=== PATIENT | female | born 1960 | race Caucasian/White ===

== ENCOUNTER → 2023-09-10 10:52 | Outpatient (CLI) | payer MEDICARE, SELFPAY ==
[2023-09-10 11:38] LABS: Basophils # 0.1 K/mm3 (0-0.2); Basophils % 0.6 % (0.1-2.0); Eosinophils # 0.1 K/mm3 (0.0-0.4); Eosinophils % 0.9 % (0.1-12.0); Hematocrit 47.5 % (37.0-47.0); Lymphocytes # 2.8 K/mm3 (0.7-4.5); Lymphocytes % 23.4 % (10-50); Mean Corpuscular HGB Conc 33.7 g/dL (31.8-35.4); Mean Corpuscular Hemoglobin 31.9 pg (27.0-31.2); Mean Corpuscular Volume 94.7 fl (81-99); Mean Platelet Volume 7.4 fl (7.4-10.4); Monocytes # 0.6 K/mm3 (0.1-1.0); Monocytes % 4.7 % (1.7-9.3); Neutrophils # 8.5 K/mm3 (1.8-7.8); Neutrophils % 70.4 % (37.0-80.0); Platelet Count 356 K/mm3 (142-424); Red Blood Count 5.01 M/mm3 (4.20-5.40); Red Cell Distribution Width 14.5 % (11.5-17.5)
[2023-09-10 12:19] LABS: Alanine Aminotransferase 25 U/L (12-78); Albumin Level 4.8 g/dl (3.5-5.0); Alkaline Phosphatase 80 U/L (38-126); Anion Gap 14.9 mEq/L (5-15); Aspartate Amino Transferase 39 U/L (14-36); Bilirubin,Direct 0.2 mg/dl (0.0-0.4); Bilirubin,Indirect 0.6 mg/dL (0.0-0.9); Bilirubin,Total 0.8 mg/dl (0.2-1.3); Bilirubin,Unconjugated 0.6 mg/dL (0.0-1.1); Blood Urea Nitrogen 15 mg/dl (7-17); Calcium 9.6 mg/dl (8.4-10.2); Carbon Dioxide 24 mmol/L (22.0-30.0); Chloride 99 mmol/L (98-107); Chol/HDL Ratio 2.5 (1-3.5); Cholesterol 139 mg/dl (140-200); Estimated Glomerular Filt Rate 72 ml/min (>60); GFR (African American) 87 ML/MIN (>60); Glucose 82 mg/dl (74-100); HDL Cholesterol 56 mg/dl (40-60); Magnesium 2.1 mg/dl (1.6-2.3); Potassium 3.9 mmoL/L (3.5-5.1); Sodium 134 mmol/L (136-145); Total Protein,Serum 7.8 g/dl (6.3-8.2); Triglycerides 146 mg/dl (30-150); VLDL Cholesterol 29 mg/dL (0-40)
[2023-09-10 12:30] LABS: Direct LDL Cholesterol 64.27 mg/dL (100-129)
[2023-09-10 12:34] LABS: Free T4 (Free Thyroxine) 1.51 ng/dl (0.78-2.19)
[2023-09-10 12:49] LABS: Thyroid Stimulating Hormone 2.11 uIU/mL (0.465-4.68)
== END ==
PROVIDERS: PCP Nurse Practitioner; Visit Provider Nurse Practitioner
DX: I20.0 Unstable angina (principal); R00.0 Tachycardia, unspecified; R06.00 Dyspnea, unspecified; R07.9 Chest pain, unspecified; R11.0 Nausea; R53.83 Other fatigue; R60.0 Localized edema; R63.4 Abnormal weight loss; R94.31 Abnormal electrocardiogram [ECG] [EKG]; Z82.49 Family history of ischemic heart disease and other diseases of the circulatory system; Z68.1 Body mass index [BMI] 19.9 or less, adult; Z72.0 Tobacco use
CPT/HCPCS: 36415; 80048; 80061; 80076; 83735; 84439; 84443; 85025; 93270

== ENCOUNTER → 2023-09-26 10:51 | Outpatient (CLI) | payer MEDICARE, OTHER, SELFPAY | PROVIDERS: PCP Nurse Practitioner; Visit Provider Nurse Practitioner | DX: R07.9 Chest pain, unspecified (principal) ==

== ENCOUNTER 2024-10-08 15:51 | Emergency (ER) | payer MEDICARE, MEDICAID, SELFPAY ==
[2024-10-08 15:51] VITALS: BP 96/57; PULSE 112; RESP 22; O2SAT 86; BMI 13.2
--- NOTE | 2024-10-08 16:20 | ECG_ITS ---
APPROVED REPORT Exam: Resting ECG HR:108 bpm ECG Measurements Heart Rate 108 AXES [place] 118 P 77 QRSd 97 QRS -70 QT 274 T 81 QTc 338 Conclusion SINUS TACHYCARDIA WITH SHORT [place] INTERVAL POSSIBLE LEFT ATRIAL ENLARGEMENT [-0.1mV P-WAVE IN V1/V2] INDETERMINATE AXIS NONSPECIFIC T-WAVE ABNORMALITY Artifact. No acute STEMI Electronically signed by : MAHESH GASPAR, 10/09/2024 00:10:57
[2024-10-08 16:30] VITALS: BP 115/77; PULSE 109; RESP 28; O2SAT 90
[2024-10-08 16:32] LABS: Coronavirus 19, PCR Not Detected (NotDetected); Influenza B, PCR Not Detected (NotDetected)
--- NOTE | 2024-10-08 16:34 | CT_ITS ---
PROCEDURE INFORMATION: Exam: CT Head Without Contrast Exam date and time: 10/08/2024 5:57 PM Age: 64 years old Clinical indication: Injury or trauma; Fall; Blunt trauma (contusions or hematomas); Additional info: Frequent falls TECHNIQUE: Imaging protocol: Computed tomography of the head without contrast. Radiation optimization: All CT scans at this facility use at least one of these dose optimization techniques: automated exposure control; mA and/or kV adjustment per patient size (includes targeted exams where dose is matched to clinical indication); or iterative reconstruction. COMPARISON: No relevant prior studies available. FINDINGS: Brain: No acute intracranial hemorrhage, midline shift or mass effect. Diffuse brain parenchymal volume loss. Hypodensities within the cerebral white matter most consistent with chronic small-vessel ischemic changes. Cerebral ventricles: No ventriculomegaly. Paranasal sinuses: Visualized sinuses are unremarkable. No fluid levels. Mastoid air cells: Visualized mastoid air cells are well aerated. Bones: Unremarkable. No acute fracture. Soft tissues: Unremarkable. IMPRESSION: No acute intracranial findings.
--- NOTE | 2024-10-08 16:34 | CT_ITS ---
PROCEDURE INFORMATION: Exam: CT Cervical Spine Without Contrast Exam date and time: 10/08/2024 5:59 PM Age: 64 years old Clinical indication: Injury or trauma; Fall; Blunt trauma; Additional info: Frequent falls TECHNIQUE: Imaging protocol: Computed tomography of the cervical spine without contrast. Radiation optimization: All CT scans at this facility use at least one of these dose optimization techniques: automated exposure control; mA and/or kV adjustment per patient size (includes targeted exams where dose is matched to clinical indication); or iterative reconstruction. COMPARISON: CT HEAD/BRAIN WO CON 10/08/2024 5:57 PM FINDINGS: Bones: Cervical vertebrae normal in height. No acute fracture. Normal alignment. Maintained craniocervical junction. Multilevel degenerative changes. Varying degrees of neural foraminal narrowing. No severe spinal canal stenosis. Lungs: Biapical pleural-parenchymal scarring Vasculature: Carotid artery calcifications. Soft tissues: Unremarkable. IMPRESSION: No acute osseous findings.
--- NOTE | 2024-10-08 16:34 | CT_ITS ---
PROCEDURE INFORMATION: Exam: CTA Chest With Contrast Exam date and time: 10/08/2024 6:02 PM Age: 64 years old Clinical indication: Other: Resp failure, frequent falls TECHNIQUE: Imaging protocol: Computed tomographic angiography of the chest with contrast. Exam focused on the arteries. 3D rendering (Not supervised by radiologist): MIP and/or 3D reconstructed images were created by the technologist. Radiation optimization: All CT scans at this facility use at least one of these dose optimization techniques: automated exposure control; mA and/or kV adjustment per patient size (includes targeted exams where dose is matched to clinical indication); or iterative reconstruction. Contrast material: ISO 370; Contrast volume: 70 ml; Contrast route: INTRAVENOUS (IV); COMPARISON: CR XR CHEST 2V 11/23/2019 4:56 PM FINDINGS: Pulmonary arteries: No CT evidence for pulmonary embolism. Aorta: Unremarkable. No aortic aneurysm. No aortic dissection. Lungs: Moderate changes of centrilobular emphysema. Luminal opacification of segmental and subsegmental bronchi to the right lower lobe as well as the left lower lobe consistent with either secondary to inflammation infection/bronchitis or aspiration. In addition associated tiny tree-in-bud bronchiolitis changes within the dependent portion of the left lung base. Mild scarring within the peripheral aspect of the middle lobe. Pleural spaces: Unremarkable. No pneumothorax. No pleural effusion. Heart: Unremarkable. No cardiomegaly. No pericardial effusion. Lymph nodes: Reactive right hilar lymph node measures 11 mm. Bones/joints: Unremarkable. No acute fracture. Soft tissues: Chest wall subcutaneous tissues and musculature appear unremarkable. IMPRESSION: 1. Luminal opacification of segmental and subsegmental bronchi to the right lower lobe as well as the left lower lobe consistent with either secondary to inflammation infection/bronchitis or aspiration. In addition associated tiny tree-in-bud bronchiolitis changes within the dependent portion of the left lung base. 2. No CT evidence for pulmonary embolism. 3. Moderate changes of centrilobular emphysema. 4. Mild scarring within the peripheral aspect of the middle lobe. 5. Probable Reactive right hilar lymph node measures 11 mm. This can be evaluated upon enrollment in a low-dose CT lung cancer screening which is strongly recommended in this patient. COMMENTS: The presence of pulmonary emphysema on CT is an independent risk factor for lung cancer. In the absence of a history or active diagnosis of lung cancer, it is recommended that this patient with emphysema be evaluated for enrollment in a low dose CT lung cancer screening program.
[2024-10-08 16:35] LABS: Basophils % 0.1 % (0.1-2.0); Hematocrit 37.6 % (37.0-47.0); Hemoglobin 12.7 g/dL (12.2-16.2); Lymphocytes # 0.9 K/mm3 (0.7-4.5); Lymphocytes % 8.8 % (10-50); Mean Corpuscular HGB Conc 33.8 g/dL (31.8-35.4); Mean Corpuscular Hemoglobin 29.3 pg (27.0-31.2); Mean Corpuscular Volume 86.8 fl (81-99); Mean Platelet Volume 8.8 fl (7.4-10.4); Monocytes # 0.5 K/mm3 (0.1-1.0); Monocytes % 4.7 % (1.7-9.3); Neutrophils # 8.8 K/mm3 (1.8-7.8); Neutrophils % 85.9 % (37.0-80.0); Platelet Count 235 K/mm3 (142-424); Red Blood Count 4.33 M/mm3 (4.20-5.40); Red Cell Distribution Width 13.9 % (11.5-17.5); White Blood Count 10.2 K/mm3 (4.8-10.8)
[2024-10-08 16:41] LABS: Lactate Venous 2.6 mmol/L (0.4-2.0); VBG HCO3 22.3 mmol/L (23-30); VBG Oxygen Saturation 89.9 % (50-70); VBG PCO2 39.6 mmol/L (35-51); VBG PH 7.37 mmol/L (7.31-7.41); VBG PO2 59.5 mmol/L (28-40); VBG Total CO2 23.5 mmol/L (23-27)
[2024-10-08 16:45] LABS: MANUAL DIFFERENTIAL MANUAL DIFFERENTIAL (MANUAL DIFF)
[2024-10-08] MEDS: METHYLPREDNISOLONE SOD SUCC 125MG VIAL 125 MG IV (16:45)
[2024-10-08] MEDS: LACTATED RINGERS 1000ML 1,430 ML 715 ML IV (16:45)
[2024-10-08] MEDS: MAGNESIUM SULFATE IN WATER 2 GM/50 ML PIGGYBACK IV (16:46)
--- NOTE | 2024-10-08 16:52 | ED_ITS ---
Discharge Plan Disposition Patient Disposition: Left Against Medical Advice Condition: Fair Prescriptions Prescriptions: New amoxicillin-pot clavulanate 875-125 mg tablet 1 tab PO BID Qty: 20 0RF azithromycin 500 mg tablet 500 mg PO DAILY 5 Days Qty: 5 0RF prednisone 20 mg tablet 40 mg PO DAILY 5 Days Qty: 10 0RF No Action bupropion HCl 150 mg tablet extended release 24 hr PO ibuprofen 800 mg tablet 800 mg PO PRN megestrol 400 mg/10 mL (40 mg/mL) suspension 400 mg PO DAILY rosuvastatin 40 mg tablet 40 mg PO DAILY dicyclomine 20 mg tablet 20 mg PO ONCE ergocalciferol (vitamin D2) [Vitamin D2] 1,250 mcg (50,000 unit) capsule 1,250 mcg PO WEEKLY losartan 25 mg tablet 25 mg PO DAILY Qty: 30 3RF bisoprolol fumarate 5 mg tablet 5 mg PO DAILY Qty: 30 3RF Referrals Follow up/Referrals: Tiffani Mcfarland APRN [Primary Care Provider] - See instructions Activity Restrictions/Add. Instructions Additional Instructions/Restrictions: You were evaluated in the emergency department today. At this time, we do not feel that it is safe for you to go home. We feel you have sepsis secondary to pneumonia. Your oxygen saturation is also low, and your heart enzymes are also high. We recommended admission for these reasons in addition to your frequent falls. We are worried that if you go home, you will get worse which can lead to fall with worsened injuries, major heart attack, and even . Please come back to the emergency department right away if you change your mind and wish to be admitted. Since you are going home, I have prescribed you antibiotics and steroids to treat your infection and COPD exacerbation. Please follow-up outpatient with your primary care provider right away. Clinical Impressions Clinical Impression: COPD exacerbation, Sepsis due to pneumonia, Elevated troponin, Frequent falls, Acute hypoxemic respiratory failure, Lymph nodes enlarged Stand Alone Forms Stand Alone Forms: Work/School Release Instructions Patient Instructions: DI for Heart Attack, How to Prevent Falls, DI for Sepsis -- Adult, DI for Respiratory Failure Print Language Print Language: Japanese Discharge ED Provider: Ariadna Figueroa HPI General Chief Complaint: Shortness of Breath/Dyspnea Stated Complaint: unable to eat, cough, fell x2 Time Seen by Provider: 10/08/24 16:26 Mode of Arrival: Ambulatory Source of Information: Patient Limitations: No Limitations Description of Symptoms (Recalled from ER Triage Doc. by RN): pt presents to ED c/o increased SOA and weakness. pt states she has a history of COPD. pt denies any known fever. History of Present Illness HPI narrative: This patient is a 64-year-old female with a history of COPD not on home oxygen, hypertension, hyperlipidemia presenting to the emergency department for evaluation with concern for shortness of breath, general weakness, and frequent falls. She states she is been feeling bad for a few days. She notes that she is having a really hard time standing secondary to generalized weakness and feels like she cannot catch her breath. Her COPD is flared up worse than normal. No other specific concerns noted, such as pain. She denies hitting her head or losing consciousness with any of her falls. She denies any traumatic injuries. She does not use aspirin or blood thinners. Related Data Home Medications ?Medication ?Instructions ?Recorded ?Confirmed bupropion HCl 150 mg 24 hr tablet, mg PO 09/10/23 09/10/23 extended release dicyclomine 20 mg tablet 20 mg PO ONCE 09/10/23 09/10/23 ergocalciferol (vitamin D2) 1,250 1,250 mcg PO WEEKLY 09/10/23 09/10/23 mcg (50,000 unit) capsule (Vitamin D2) ibuprofen 800 mg tablet 800 mg PO PRN 09/10/23 09/10/23 megestrol 400 mg/10 mL (40 mg/mL) 400 mg PO DAILY 09/10/23 09/10/23 oral suspension rosuvastatin 40 mg tablet 40 mg PO DAILY 09/10/23 09/10/23 Previous Rx's ?Medication ?Instructions ?Recorded bisoprolol fumarate 5 mg tablet 5 mg PO DAILY #30 tabs 09/10/23 losartan 25 mg tablet 25 mg PO DAILY #30 tabs 09/10/23 amoxicillin 875 mg-potassium 1 tab PO BID #20 tabs 10/08/24 clavulanate 125 mg tablet azithromycin 500 mg tablet 500 mg PO DAILY 5 days #5 tabs 10/08/24 prednisone 20 mg tablet 40 mg (2 x 20 mg) PO DAILY 5 days 10/08/24 #10 tabs Allergies Allergy/AdvReac Type Severity Reaction Status Date / Time No Known Allergies Allergy Verified 09/10/23 10:00 [facility] Disclaimer: The information contained in this section may have been updated after the patient was seen, as this information can be updated by other users. Medical History Nausea Edema of both lower extremities Crescendo angina Family history of ischemic heart disease Tobacco use Tachycardia Abnormal electrocardiogram [ECG] [EKG] High cholesterol COPD (chronic obstructive pulmonary disease) Hypertension Surgical History Hx of hysterectomy Family History Grandmother Cancer Other Alcoholism Social History Smoking Status: Current every day smoker tobacco type: cigarettes packs per day: 1 alcohol intake: never current occupational status: other Travel in the last 8 weeks: None Have you lived/traveled outside [place] in past 30 days?: No Contact w/someone who lives/traveled outside US past 30 days?: No Exposure to someone with infectious disease in past 14 days?: No Do you have a fever (greater than 100.4 F or 38 C)?: No Have you tested positive for COVID-19: No Exposed to someone with COVID-19 in past 14 days?: No Do you have a sore throat?: No Do you have a cough?: Yes Do you have any weakness?: No Do you have any diarrhea?: No Are you experiencing any unusual bleeding?: No Do you have any muscle aches/pain?: No Do you have any abdominal pain?: No Are you experiencing loss of taste or smell?: No Other Medical History Have you received the Pneumonia Vaccine: No ROS Obtained: Yes All systems reviewed & no additional complaints except as documented Physical Exam General General appearance: alert, in distress and cachectic Comment: Thin, frail, in respiratory distress Head Head exam: atraumatic and normocephalic Eye Eye exam: Present normal appearance, PERRL and EOMI ENT ENT exam: Present mucous membranes dry and normal external ear exam Neck Neck exam: Present normal inspection, full ROM and trachea midline; Absent tenderness Chest Chest inspection: Present normal inspection and symmetric chest wall rise; Absent tenderness Respiratory Respiratory exam: Present respiratory distress, wheezes, accessory muscle use and prolonged expiratory phase; Absent stridor Cardiovascular Cardiovascular exam: Present normal rhythm and tachycardia Abdominal Exam Abdominal exam: Present soft; Absent distention, tenderness, guarding or rebound Extremities Exam Extremities exam: Present normal inspection, full ROM and normal capillary refill; Absent tenderness or edema Back Exam Back exam: Present normal inspection and full ROM; Absent tenderness Neurological Exam Neurological exam: Present alert, oriented X3 and CN II-XII intact; Absent normal gait (Unsteady gait) or motor sensory deficit Psychiatric Psychiatric exam: Present normal affect and normal mood Skin Skin exam: Present warm and dry HEART Score HEART Score HEART Score assessment performed?: Yes History (anamnesis): Slightly suspicious ECG: Normal Age: >65 years Risk factors: 3 or more risk factors Troponin: 1-3x normal limit HEART Score: 5 Critical Care Critical Care Time Critical Care Time: Yes Attestation: On 10/08/24, the high probability of a clinically significant, sudden or life threatening deterioration of the following system(s) required my full and direct attention, intervention and personal management. The time I documented below is in addition to time spent performing reported procedures but includes the following listed in this critical care notation. Total Time Total Critical Care Time: 40 Medical Decision Making Denny Inquiry Pt receiving controlled substance: No Vital Signs Vital Signs: 10/08/24 15:51 10/08/24 16:30 10/08/24 17:00 Temperature Temperature Source Oral Pulse Rate 109 H 98 H Pulse Rate [Right Radial] 112 H Respiratory Rate 22 28 H 26 H Blood Pressure 115/77 99/53 L Blood Pressure [Right Arm] 96/57 L Blood Pressure Mean 89 Blood Pressure Mean [Right Arm] 70 Blood Pressure Source [Right Arm] Automatic Cuff Blood Pressure Position [Right Arm] Sitting 02 Sat by Pulse Oximetry 86 L 90 L 89 L Oxygen Delivery Method Room Air 10/08/24 17:30 10/08/24 18:30 10/08/24 20:31 Temperature 97.8 F Temperature Source Pulse Rate 94 H 87 86 Pulse Rate [Right Radial] Respiratory Rate 25 H 20 19 Blood Pressure 101/55 L 115/65 104/65 L Blood Pressure [Right Arm] Blood Pressure Mean 61 77 Blood Pressure Mean [Right Arm] Blood Pressure Source [Right Arm] Blood Pressure Position [Right Arm] 02 Sat by Pulse Oximetry 96 97 Oxygen Delivery Method Nasal Cannula Lab Data Labs: Lab Results 10/08/24 16:15: WBC 10.2, RBC 4.33, Hgb 12.7, Hct 37.6, MCV 86.8, MCH 29.3, MCHC 33.8, RDW 13.9, Plt Count 235, MPV 8.8, Neut % (Auto) 85.9 H, Lymph % (Auto) 8.8 L, [place] % (Auto) 4.7, Eos % (Auto) 0.0 L, Baso % (Auto) 0.1, Neut # (Auto) 8.8 H , Lymph # (Auto) 0.9, [place] # (Auto) 0.5, Eos # (Auto) 0.0, Baso # (Auto) 0.0, Total Counted 100, Neutrophils % (Manual) 82 H, Band Neutrophils % 10.0 H, L ymphocytes % (Manual) 5 L, Monocytes % (Manual) 3, Platelet Estimate Normal, RBC Morphology Normal, Sodium 133 L, Potassium 3.2 L, Chloride 96 L, Carbon Dioxide 27, Anion Gap 13.2, BUN 38 H, Creatinine 1.40 H, Estimated Creat Clear 20, E stimated GFR 38 L, Est GFR ( Amer) 46 L, Glucose 121 H, Lactate 2.5 H, Calcium 9.0, Magnesium 2.1, Total Bilirubin 0.5, AST 69 H, ALT 32, Alkaline Phosphatase 87, Troponin I 0.04 H, C-Reactive Protein 214.6 H, NT-Pro-B Natriuret Pep 1480 H, Total Protein 6.6, Albumin 3.7, Globulin 2.9, Albumin/Globulin Ratio 1.3, Procalcitonin 27.7 H, TSH 1.28, Thyroxine (T4) 7.6, SARS-CoV-2 (PCR) Not detected, HIV Ag/Ab Combo Qual Negative, Influenza A Untype (PCR) Detected A, Influenza Type B (PCR) Not detected 10/08/24 16:38: VBG pH 7.37, VBG pCO2 39.6, VBG pO2 59.5 H, VBG HCO3 22.3 L, VBG Total CO2 23.5, VBG O2 Saturation 89.9 H, VBG Base Excess -3.0 L, VBG Lactic Acid 2.6 H 10/08/24 19:15: Troponin I 0.02 10/08/24 16:15 10/08/24 16:15 Response Orders (Tests/Meds): ED MEDICATIONS Discontinued Medications Generic Name Dose Route Start Last Admin Trade Name Jimmy PRN Reason Stop Dose Admin Albuterol Sulfate 2 puff 10/08/24 19:08 10/08/24 19:41 Albuterol-Hfa 90mcg/Puff Inhaler 8gm IH 10/08/24 19:09 2 puff ONCE ONE Administration Magnesium Sulfate 2 gm in 50 mls @ 50 mls/hr 10/08/24 16:36 10/08/24 16:46 Magnesium Sulfate 2gm/50ml Premix IV 10/08/24 17:35 50 mls/hr ONCE ONE Administration Lactated Ringer's 1,430 mls @ 715 mls/hr 10/08/24 16:37 10/08/24 16:45 Lactated Ringer's 1000 Ml Bag 30 ml/kg infuse over 2 hr (1430 ml) 10/08/24 18:36 715 mls/hr IV Administration .Q2H ONE Cefepime HCl 2 gm/ Sodium 100 mls @ 200 mls/hr 10/08/24 18:55 10/08/24 19:34 Chloride IV 10/08/24 19:24 200 mls/hr ONCE ONE Administration Vancomycin HCl 750 mg/ Sodium 250 mls @ 125 mls/hr 10/08/24 19:30 10/08/24 19:52 Chloride IV 10/08/24 21:29 Not Given ONCE ONE Iopamidol 70 ml 10/08/24 17:57 10/08/24 18:01 Iopamidol-370 (76%);100ml Bottle IV 10/08/24 17:58 70 ml ONCE ONE Administration Methylprednisolone Sodium Succinate 125 mg 10/08/24 16:36 10/08/24 16:45 Methylprednisolone Sod Succ 125mg Vial IV 10/08/24 16:37 125 mg ONCE ONE Administration Miscellaneous 1 each 10/08/24 19:00 10/08/24 19:52 Vancomycin Consult Request NOTAPPLIC 11/07/24 18:59 Not Given CONSULT [facility]Y [facility] Miscellaneous 1 unit 10/08/24 19:08 10/08/24 19:41 Aerochamber/Optihaler MC 10/08/24 19:09 1 unit ONCE ONE Administration Potassium Chloride 40 meq 10/08/24 18:18 10/08/24 18:25 Potassium Chloride 20meq Tab PO 10/08/24 18:19 40 meq ONCE ONE Administration Sodium Chloride 10 ml 10/08/24 16:18 Sodium Chloride 0.9% 10ml Flush Syringe IV 11/07/24 16:17 NEEDED PRN Maintain IV Site Sodium Chloride 50 ml 10/08/24 17:57 10/08/24 18:00 0.9 % Sodium Chloride 50 Ml Vial IV 10/08/24 17:58 50 ml ONCE ONE Administration Sodium Chloride 10 ml 10/08/24 17:57 10/08/24 18:02 Sodium Chloride 0.9% 10ml Syr (Rad Only) IV 11/07/24 17:56 10 ml NEEDED PRN Administration Maintain IV Site ORDERS Category Date Time Status CT angio chest PE protocol Stat Cat Scan 10/08/24 16:[address] cervical spine wo con Stat Cat Scan 10/08/24 16:[address] head/brain wo con Stat Cat Scan 10/08/24 16:34 Completed BNP [NT Pro Brain Natriuretic Pep.] Stat Lab 10/08/24 16:15 Completed CRP [C-Reactive Protein] Stat Lab 10/08/24 16:15 Completed Complete Blood Count Auto Diff Stat Lab 10/08/24 16:15 Completed Comprehensive Metabolic Panel Stat Lab 10/08/24 16:15 Completed HIV Combo Stat Lab 10/08/24 16:15 Completed Hep C Ab with Reflex to RNA Stat Lab 10/08/24 16:15 Received Lactic Acid Stat Lab 10/08/24 16:15 Completed Magnesium Stat Lab 10/08/24 16:15 Completed Procalcitonin Stat Lab 10/08/24 16:15 Completed Rapid PCR Covid and Flu A/B Stat Lab 10/08/24 16:15 Completed T4 (Thyroxine) Stat Lab 10/08/24 16:15 Completed TSH [Thyroid Stimulating Hormone] Stat Lab 10/08/24 16:15 Completed Troponin I Q3H Lab 10/08/24 19:15 Completed Troponin I Stat Lab 10/08/24 16:15 Completed Blood Culture Stat Micro 10/08/24 16:20 Received VBG [Venous Blood Gas] Stat RT 10/08/24 16:38 Completed ECG Data Tracing #1: Attestation: I reviewed this ECG and interpreted as documented below: ECG Narrative: Artifact degraded study. Sinus tachycardia with a ventricular rate of 108 bpm. No acute STEMI. ECG initial impression date: 10/08/24 ECG initial impression time: 16:26 MDM Narrative Medical Decision Narrative: In summary, this patient is a 64-year-old female presenting to the Emergency Department for evaluation of weakness, frequent falls, cough, shortness of breath, feeling unwell. Differential diagnoses considered include but are not limited to COPD exacerbation, respiratory failure, traumatic injury from fall, viral syndrome, pneumonia, sepsis, dehydration, MIHIR. Ruling out the most morbid conditions drove assessment. It should be noted patient's history includes COPD, hypertension, hyperlipidemia which may or may not be at goal therapy. This complicates all aspects of care by increasing patient's risk for morbidity. On exam, the patient is in mild respiratory distress. She is sitting upright and is alert and oriented. She is tachycardic, tachypneic. O2 saturation is 86% on RA. she appears dry on clinical exam. Workup included evaluation to evaluate for sepsis/infectious, metabolic, cardiac causes of her symptoms. Given she has had falls and also has respiratory failure, I ordered CT PE protocol as well as CT head and C-spine without contrast. Patient was given sepsis bolus of IV fluids. For her respiratory distress in the setting of COPD, she was given DuoNebs x 3, IV magnesium, IV methylprednisolone. I independently interpreted CT scans prior to the radiologist read and noted signs for pneumonia. Please see their read for final interpretation. Labs were obtained that demonstrated neutrophilic predominance, elevated lactic, significantly evaded procalcitonin concerning for sepsis secondary to pneumonia. Her vital signs also support this. She also has hypokalemia for which oral replacement was ordered. AST mildly elevated. BNP slightly elevated as well. She has an MIHIR and mild hyponatremia. She is positive for flu A. On reassessment, patient had improvement in her respiratory status after administration of interventions above, but she still is hypoxic requiring 2 L nasal cannula. Overall, I am concerned that she has sepsis secondary to pneumonia with endorgan damage consisting of respiratory failure and MIHIR. She also has elevated troponins suggestive of possible NSTEMI. Given this, I recommended admission for IV antibiotics and continued support and monitoring. Patient states that she is not going to be admitted, she is going home. She states she only came in because she needs a work excuse. I advised her that I do not feel that this is safe she is high risk of adverse event and even given respiratory failure, elevated troponins, and cyst with secondary to pneumonia. She states she understands but she is not staying here because she cannot afford it. I had multiple discussions with her about this and she still is choosing to leave AGAINST MEDICAL ADVICE. I did give her IV broad-spectrum antibiotics here prior to discharge, though she refused vancomycin because she stated she was not staying here for it. I then prescribed her Augmentin and azithromycin as well as steroids to help treat COPD exacerbation and pneumonia. I told her she should come back right away if she changes her mind. I also gave her instructions for very close follow-up with primary care. She left AGAINST MEDICAL ADVICE alert and oriented x 4 with good decision-making capacity
[2024-10-08 17:00] VITALS: BP 99/53; PULSE 98; RESP 26; O2SAT 89
[2024-10-08 17:30] VITALS: BP 101/55; PULSE 94; RESP 25; O2SAT 96
[2024-10-08 17:32] LABS: Alanine Aminotransferase 32 U/L (12-78); Albumin Level 3.7 g/dl (3.5-5.0); Albumin/Globulin Ratio 1.3 (1.1-1.8); Alkaline Phosphatase 87 U/L (38-126); Aspartate Amino Transferase 69 U/L (14-36); Bilirubin,Total 0.5 mg/dl (0.2-1.3); Blood Urea Nitrogen 38 mg/dl (7-17); Carbon Dioxide 27 mmol/L (22.0-30.0); Chloride 96 mmol/L (98-107); Creatinine Clearance Estimated 20 mL/min (50-200); Estimated Glomerular Filt Rate 38 ml/min (>60); GFR (African American) 46 ML/MIN (>60); Globulin 2.9 g/dL (1.3-3.2); Glucose 121 mg/dl (74-100); Sodium 133 mmol/L (136-145); Total Protein,Serum 6.6 g/dl (6.3-8.2)
[2024-10-08 17:38] LABS: Influenza A, PCR Detected (NotDetected)
[2024-10-08 17:40] LABS: Lactic Acid 2.5 mmol/L (0.7-2.1)
[2024-10-08 17:44] LABS: Troponin I 0.04 ng/ml (0.00-0.034)
[2024-10-08] MEDS: 0.9 % SODIUM CHLORIDE 50 ML VIAL IV (18:00)
[2024-10-08] MEDS: IOPAMIDOL-370 (76%);100ML BOTTLE 70 ML IV (18:01)
[2024-10-08] MEDS: SODIUM CHLORIDE 0.9% 10ML SYR (RAD ONLY) 10 ML IV (18:02)
[2024-10-08 18:14] LABS: Anion Gap 13.2 mEq/L (5-15); Potassium 3.2 mmoL/L (3.5-5.1)
[2024-10-08 18:21] LABS: Magnesium 2.1 mg/dl (1.6-2.3)
--- NOTE | 2024-10-08 18:22 | PC.NURSE ---
PT PLACED ON 2L/NC
[2024-10-08] MEDS: POTASSIUM CHLORIDE 20MEQ TAB 40 MEQ PO (18:25)
[2024-10-08 18:26] LABS: C-Reactive Protein 214.6 mg/L (0-4)
[2024-10-08 18:30] VITALS: BP 115/65; PULSE 87; RESP 20; O2SAT 97
[2024-10-08 18:33] LABS: NT Pro Brain Natriuretic Pep. 1480 pg/mL (0-125)
[2024-10-08 18:40] LABS: Procalcitonin 27.7 ng/mL (0.0-2.0)
[2024-10-08 19:18] LABS: Lymphocytes % 5 % (10-50); Monocytes % 3 % (2-9); Neutrophils % 82 % (42-76); Platelet Estimate Normal; RBC Morphology Normal; Total Cells Counted 100
[2024-10-08 19:29] LABS: T4 (Thyroxine) 7.6 ug/dl (5.53-11.0)
[2024-10-08] MEDS: CEFEPIME HCL 2 GM in 0.9 % SODIUM CHLORIDE 100 ML IV (19:34)
[2024-10-08] MEDS: ALBUTEROL-HFA 90MCG/PUFF INHALER 8GM 2 PUFF IH (19:41)
[2024-10-08] MEDS: AEROCHAMBER/OPTIHALER 1 UNIT MC (19:41)
[2024-10-08 19:42] LABS: Thyroid Stimulating Hormone 1.28 uIU/mL (0.465-4.68)
--- NOTE | 2024-10-08 19:52 | PC.NURSE ---
pt educated on the importance of the vanc. pt continued to refused vanc but accepted the Rocephin
[2024-10-08 20:01] LABS: HIV Combo NEGATIVE (Negative)
[2024-10-08 20:20] LABS: Troponin I 0.02 ng/ml (0.00-0.034)
[2024-10-08 20:31] VITALS: BP 104/65; PULSE 86; RESP 19; TEMP 36.6; O2SAT 92
[2024-10-08 20:41] LABS: Reflex Lactic Add Lactic Reflex
[2024-10-09 07:08] LABS: HCV Ab Non Reactive (Non Reactive)
== END 2024-10-08 20:51 | disposition left against medical advice (07) ==
PROVIDERS: Emergency Provider Emergency Medicine; PCP Nurse Practitioner
DX: R59.9 Enlarged lymph nodes, unspecified (principal); J96.01 Acute respiratory failure with hypoxia; R29.6 Repeated falls; R79.89 Other specified abnormal findings of blood chemistry; J18.9 Pneumonia, unspecified organism; J44.1 Chronic obstructive pulmonary disease with (acute) exacerbation; R53.1 Weakness
CPT/HCPCS: 70450; 71275; 72125; 80053; 82803; 83605; 83735; 83880; 84145; 84436; 84443; 84484; 85007; 85025; 85027; 86140; 86803; 87040; 87389; 87636; 93005; 96361; 96365; 96366; 96367; 96374; 99291; J2919; J3475; J7120; Q9967

== ENCOUNTER 2024-11-09 13:15 | Outpatient (CLI) | payer MEDICARE, SELFPAY ==
--- NOTE | 2024-11-09 13:22 | CT_ITS ---
FINAL REPORT TECHNIQUE: Axial images were obtained from the lung apex to the mid abdomen by computed tomography. This study was performed with techniques to keep radiation doses as low as reasonably achievable (ALARA). Individualized dose reduction techniques using automated exposure control or adjustment of mA and/or kV according to the patient's size were employed. CLINICAL HISTORY: SCREENING smoker 1 ppd x 51 COMPARISON: 10/08/2024 FINDINGS: CHEST CT LOW DOSE CTDI vol (mGy): 2.90 DLP (mGy-cm): 101.60 There is moderate coronary artery calcification of the aortic arch and coronary arteries, similar to previous. There is no axillary adenopathy. There is no hilar or mediastinal adenopathy. The heart is normal in size. There is no pericardial or pleural effusion. There is dense bilateral pleural and parenchymal scarring. There are moderate changes of centrilobular emphysema. There is scarring in the right middle lobe and lingula. Patchy airspace foci seen previously have resolved, particularly in the peripheral of the right upper lobe and left lower lobe. The previously noted occlusion in the right lower lobe bronchi has resolved. There is minimal scarring at both bases. There are a couple of tiny nodules in the posterior left base measuring 3 mm well-seen on image 65 of series 4. There are a couple of nodules at the right base measuring 4 mm, may be postinflammatory. Limited images of the upper abdomen demonstrate calcified granulomas in the spleen. IMPRESSION: Nodules in both lung bases. Moderate changes of centrilobular emphysema. Lung RADS category 2S. Recommend 12 month follow-up low-dose chest CT. Reviewed, Interpreted and Dictated by Colin Walker MD Transcribed by Yessy Redman Authenticated and . [facility]
== END 2024-11-09 23:59 | disposition home or self-care (01) ==
LOC: RAD 13:20
PROVIDERS: PCP Nurse Practitioner; Visit Provider Nurse Practitioner
DX: F17.210 Nicotine dependence, cigarettes, uncomplicated (principal)
CPT/HCPCS: 71271

== ENCOUNTER 2024-11-24 16:27 | Emergency (ER) | payer MEDICARE, SELFPAY ==
[2024-11-24 16:40] VITALS: BP 140/82; PULSE 120; RESP 18; TEMP 36.8; O2SAT 95; BMI 11.9
--- NOTE | 2024-11-24 17:07 | CT_ITS ---
PROCEDURE INFORMATION: Exam: CT Chest Without Contrast; Diagnostic Exam date and time: 11/24/2024 5:16 PM Age: 64 years old Clinical indication: Pain; On breathing; Additional info: R posterolateral chest pain, dec breath sounds R TECHNIQUE: Imaging protocol: Diagnostic computed tomography of the chest without contrast. Radiation optimization: All CT scans at this facility use at least one of these dose optimization techniques: automated exposure control; mA and/or kV adjustment per patient size (includes targeted exams where dose is matched to clinical indication); or iterative reconstruction. COMPARISON: CT LUNG SCREENING 11/09/2024 1:27 PM FINDINGS: Lungs: Hyperexpanded lungs with moderate paraseptal and centrilobular emphysematous changes. Nodular pleuroparenchymal scarring in the lung apices and scattered subsegmental atelectasis/scarring, personally unchanged from prior exam. No evidence of focal airspace infiltrate or congestive pulmonary edema. Central airways are clear. Pleural spaces: No pleural effusion. No pneumothorax. Heart: No cardiomegaly. No pericardial effusion. Lymph nodes: Unremarkable. Vasculature: Three-vessel calcific coronary artery disease, unchanged. Bones/joints: Acute nondisplaced fracture in the posterolateral right 10th rib. No other acute osseous abnormality in the chest. Soft tissues: Unremarkable. IMPRESSION: 1. Acute nondisplaced fracture in the posterolateral right 10th rib. No evidence of acute intrathoracic traumatic injury. 2. Chronic ancillary findings detailed above are unchanged from prior exam. COMMENTS: The presence of pulmonary emphysema on CT is an independent risk factor for lung cancer. In the absence of a history or active diagnosis of lung cancer, it is recommended that this patient with emphysema be evaluated for enrollment in a low dose CT lung cancer screening program.
[2024-11-24] MEDS: LIDOCAINE 5% TRANSDERMAL PATCH 1 EACH TP (17:22)
[2024-11-24] MEDS: OXYCODONE 5MG IMMEDIATE RELEASE TABLET 5 MG PO (17:22)
[2024-11-24] MEDS: METHOCARBAMOL 500MG TABLET 1500 MG PO (17:22)
[2024-11-24] MEDS: IBUPROFEN 600 MG TABLET PO (17:22)
[2024-11-24] MEDS: ACETAMINOPHEN 500MG TAB 1000 MG PO (17:22)
--- NOTE | 2024-11-24 17:36 | ED_ITS ---
Discharge Plan Disposition Patient Disposition: Home, Self-Care Prescriptions Prescriptions: New methocarbamol 750 mg tablet 1,500 mg PO TID 5 Days Qty: 30 0RF lidocaine 5 % adhesive patch,medicated 1 patch topical DAILY Qty: 30 0RF Rx Instructions: leave on most painful area for up to 12 hrs No Action bupropion HCl 150 mg tablet extended release 24 hr 150 mg PO DAILY megestrol 400 mg/10 mL (40 mg/mL) suspension 400 mg PO DAILY rosuvastatin 40 mg tablet 40 mg PO DAILY ergocalciferol (vitamin D2) [Vitamin D2] 1,250 mcg (50,000 unit) capsule 1,250 mcg PO WEEKLY losartan 25 mg tablet 25 mg PO DAILY Qty: 30 3RF bisoprolol fumarate 5 mg tablet 5 mg PO DAILY Qty: 30 3RF clonazepam 1 mg tablet 1 mg PO TID Patient Comments: TAKE ONE TABLET BY MOUTH TWICE DAILY aspirin 81 mg tablet,delayed release (DR/EC) 81 mg PO DAILY Patient Comments: TAKE ONE TABLET BY MOUTH ONCE DAILY Referrals Follow up/Referrals: Tiffani Mcfarland APRN [Primary Care Provider] - See instructions Activity Restrictions/Add. Instructions Additional Instructions/Restrictions: Call your family doctor to establish care for this visit to the emergency department and schedule follow-up within 48 hours to ensure improvement. If you have any worsening of your condition or any other concerning signs or symptoms, return to the emergency department or your primary care doctor for further evaluation. Clinical Impressions Clinical Impression: Closed fracture of one rib of right side Print Language Print Language: Divehi Discharge ED Provider: Juan A Uribe General Adult HPI General Chief complaint: Fall Stated complaint: lower back pain Time Seen by Provider: 11/24/24 16:54 Mode of Arrival: Ambulatory Source of Information: Patient Limitations: No Limitations Description of Symptoms (Recalled from ER Triage Doc. by RN): Pt states she fell 2 days ago getting out of bed, and is now having right sided back and hip pain. History of Present Illness HPI narrative: Please note that above description of symptoms, in this electronic medical record under categorization of recalled from ER triage doctor by RN are reflective of an initial nursing assessment, however, is not reflective of my full history and physical exam that was personally taken and clarified. Consequentially, this preceding description of symptoms, which may include the patient's categorized chief complaint in the EMR, do not reflect my personal clinical impression, and the ultimate description of history of present illness and patient stated complaints should be deferred to this section of the note. Unless stated otherwise or congruent with this section of the note, additional signs, symptoms, or incongruence should be interpreted as inaccurate with my clinical impression. Related Data Home Medications ?Medication ?Instructions ?Recorded ?Confirmed bupropion HCl 150 mg 24 hr tablet, 150 mg PO DAILY 09/10/23 11/24/24 extended release ergocalciferol (vitamin D2) 1,250 1,250 mcg PO WEEKLY 09/10/23 11/24/24 mcg (50,000 unit) capsule (Vitamin D2) megestrol 400 mg/10 mL (40 mg/mL) 400 mg PO DAILY 09/10/23 11/24/24 oral suspension rosuvastatin 40 mg tablet 40 mg PO DAILY 09/10/23 11/24/24 aspirin 81 mg tablet,delayed 81 mg PO DAILY 11/24/24 11/24/24 release clonazepam 1 mg tablet 1 mg PO TID 11/24/24 11/24/24 Previous Rx's ?Medication ?Instructions ?Recorded bisoprolol fumarate 5 mg tablet 5 mg PO DAILY #30 tabs 09/10/23 losartan 25 mg tablet 25 mg PO DAILY #30 tabs 09/10/23 lidocaine 5 % topical patch 1 patch topical DAILY #30 ea 11/24/24 methocarbamol 750 mg tablet 1,500 mg (2 x 750 mg) PO TID 5 11/24/24 days #30 tabs Allergies Allergy/AdvReac Type Severity Reaction Status Date / Time No Known Allergies Allergy Verified 11/24/24 18:18 [facility] Disclaimer: The information contained in this section may have been updated after the patient was seen, as this information can be updated by other users. Medical History Nausea Edema of both lower extremities Crescendo angina Family history of ischemic heart disease Tobacco use Tachycardia Abnormal electrocardiogram [ECG] [EKG] High cholesterol COPD (chronic obstructive pulmonary disease) Hypertension Surgical History Hx of hysterectomy Family History Grandmother Cancer Other Alcoholism Social History Smoking Status: Current every day smoker tobacco type: cigarettes packs per day: 1 alcohol intake: never current occupational status: other Travel in the last 8 weeks: None Have you lived/traveled outside [place] in past 30 days?: No Contact w/someone who lives/traveled outside [place] past 30 days?: No Exposure to someone with infectious disease in past 14 days?: No Do you have a fever (greater than 100.4 F or 38 C)?: No Have you tested positive for COVID-19: No Exposed to someone with COVID-19 in past 14 days?: No Do you have a sore throat?: No Do you have a cough?: No Do you have any weakness?: No Do you have any diarrhea?: No Are you experiencing any unusual bleeding?: No Do you have any muscle aches/pain?: No Do you have any abdominal pain?: No Are you experiencing loss of taste or smell?: No Other Medical History Have you received the Pneumonia Vaccine: No ROS Obtained: Yes All systems reviewed & no additional complaints except as documented Physical Exam General General appearance: alert, in distress (Mild distress secondary to pain) and cachectic Head Head exam: atraumatic and normocephalic Eye Eye exam: Present normal appearance, PERRL and EOMI Neck Neck exam: Present normal inspection, full ROM and trachea midline Chest Chest inspection: Present tenderness (Posterior axillary line on the right side) Respiratory Respiratory exam: Present other (Decreased breath sounds on the right as compared to the left. Tachypneic); Absent respiratory distress, wheezes, stridor, accessory muscle use or prolonged expiratory phase Cardiovascular Cardiovascular exam: Present normal rhythm, tachycardia and other (Pulses equal symmetric in upper and lower extremities) Abdominal Exam Abdominal exam: Present soft; Absent distention, tenderness or pulsatile mass Extremities Exam Extremities exam: Absent edema Neurological Exam Neurological exam: Present alert, oriented X3 and CN II-XII intact; Absent motor sensory deficit Skin Skin exam: Present warm and dry; Absent diaphoresis or erythema Medical Decision Making Medical Records Medical records reviewed: Yes I reviewed the patient's medical records. Screening: Per USPSTF and CDC recommendations, given the prevalence of disease in our region, it is our hospital?s policy to screen for HIV and viral Hepatitis for all patients aged 18 and over and those with ongoing risk factors. Denny Inquiry Pt receiving controlled substance: No Denny was queried for this patient: No Vital Signs: 11/24/24 16:40 11/24/24 17:59 11/24/24 18:00 Temperature 98.2 F Temperature Source Oral Pulse Rate 101 H 100 H Pulse Rate [Right] 120 H Respiratory Rate 18 31 H 31 H Blood Pressure 127/76 132/73 Blood Pressure [Right Arm] 140/82 Blood Pressure Mean [Right Arm] 101 Blood Pressure Position [Right Arm] Sitting 02 Sat by Pulse Oximetry 95 95 94 L Oxygen Delivery Method Room Air Room Air Room Air Orders (Tests/Meds): ED MEDICATIONS Discontinued Medications Generic Name Dose Route Start Last Admin Trade Name Freq PRN Reason Stop Dose Admin Acetaminophen 1,000 mg 11/24/24 17:07 11/24/24 17:22 Acetaminophen 500mg Tab PO 11/24/24 17:08 1,000 mg ONCE ONE Administration Ibuprofen 600 mg 11/24/24 17:07 11/24/24 17:22 Ibuprofen 600 Mg Tablet PO 11/24/24 17:08 600 mg ONCE ONE Administration Lidocaine 1 each 11/24/24 17:07 11/24/24 17:22 Lidocaine 5% Transdermal Patch TP 11/24/24 17:08 1 each ONCE ONE Administration Methocarbamol 1,500 mg 11/24/24 17:07 11/24/24 17:22 Methocarbamol 500mg Tablet PO 11/24/24 17:08 1,500 mg ONCE ONE Administration Oxycodone HCl 5 mg 11/24/24 17:07 11/24/24 17:22 Oxycodone 5mg Immediate Release Tablet PO 11/24/24 17:08 5 mg ONCE ONE Administration ORDERS Category Date Time Status CT chest wo con Stat Cat Scan 11/24/24 17:07 Completed Medical Decision Narrative: 64-year-old female history of hypertension, hyperlipidemia, CAD, COPD not on home oxygen and still smoking presenting with back/chest wall pain. She states that she thought she sat all the way in bed yesterday, 09/22, however she missed and fell down to the floor. Hit posterior right ribs on the bed frame. Having significant pain since that time. No cough, nausea, vomiting, hemoptysis, but pain is moderate to severe in intensity. Does not radiate. Made worse with application of pressure. She tried taking Tylenol and ibuprofen and it did not seem to help much. History was obtained via conversation with patient. On arrival, patient hemodynamically stable, alert, oriented x4, appropriate, GCS 15, moving all extremities spontaneously, pupils equal and reactive to light. Full physical exam performed and significant for well-appearing patient in no a cute distress, however when sitting forward to examine back, appears to be in mild to moderate distress. Tenderness to posterior lateral chest wall on the right side, but no evidence of outward signs of abnormality. She does have decreased breath sounds on the right side as compared to the left. She is also tachycardic and tachypneic. Differential includes pneumothorax, pulmonary contusion, rib fractures, pain induced tachycardia, fracture, sprain, strain among others. Patient placed on continuous cardiac monitoring and continuous pulse ox with initial blood pressure 140/82, heart rate 120, saturation 95% on room air. EKG was considered, but not deemed necessary. Patient not having cardiac symptoms. More musculoskeletal/pulmonary. Patient was given acetaminophen, ibuprofen, Robaxin, lidocaine patch, oxycodone for symptomatic management and correction of underlying abnormalities. Workup independently interpreted and significant for no pneumothorax on imaging. She does have 1 nondisplaced rib fracture on the right side with no underlying pulmonary contusion or lung injury. See radiology read for full review of final results. On reevaluation, patient states that she is feeling better. Still having some pain, but significantly reduced. Given patient presentation, workup, history, this most likely represents nondisplaced rib fracture on the right. Tylenol take-home pack given for patient for pain control. Because patient at baseline without signs or symptoms of clinical decompensation, deemed appropriate for discharge. Results were relayed to patient who voiced understanding and were agreeable to outpatient management and follow up. I discussed my clinical impression with patient and answered all questions. At this time, the evidence for any other entities in the differential is insufficient to warrant any further testing or ED observation. This was explained as well. Advisory was given that persistent or worsening symptoms require further evaluation. I confirmed the understanding of this discussion. Shearing Supervisor disclaimer Much of this encounter note is an electronic clock and watch hands dipper spoken language to printed text. Electronic clock and watch hands dipper of the spoken language may permit errors. Although I have reviewed the note, some errors may still exist. Critical Care Critical Care Time Critical Care Time: No
--- NOTE | 2024-11-24 17:41 | PC.NURSE ---
ROUNDED ON THE PT. THE PT VOICES THAT SHE DOES NOT NEED ANYTHING AT THIS TIME. CALL LIGHT IS WITHIN REACH OF THE PT.
[2024-11-24 17:59] VITALS: BP 127/76; PULSE 101; RESP 31; O2SAT 95
[2024-11-24 18:00] VITALS: BP 132/73; PULSE 100; RESP 31; O2SAT 94
--- NOTE | 2024-11-24 18:12 | PC.NURSE ---
ROUNDED ON THE PT. THE PT VOICES THAT SHE DOES NOT NEED ANYTHING AT THIS TIME. CALL LIGHT IS WITHIN REACH OF THE PT.
[2024-11-24] MEDS: ACETAMINOPHEN 300MG W/CODEINE 30MG TAKE HOME PACK (6) 1 PACKET PO (18:37)
[2024-11-24 18:38] VITALS: BP 122/82; PULSE 101; RESP 16; TEMP 36.6; O2SAT 96
== END 2024-11-24 18:42 | disposition home or self-care (01) ==
PROVIDERS: Emergency Provider Emergency Medicine; PCP Nurse Practitioner
DX: S22.31XA Fracture of one rib, right side, initial encounter for closed fracture (principal); M54.50 Low back pain, unspecified; M25.551 Pain in right hip; F17.210 Nicotine dependence, cigarettes, uncomplicated; W06.XXXA Fall from bed, initial encounter; Y93.89 Activity, other specified; Y92.003 Bedroom of unspecified non-institutional (private) residence as the place of occurrence of the external cause
CPT/HCPCS: 71250; 99284

== ENCOUNTER 2025-01-26 19:03 | Inpatient (IN) | payer MEDICARE, SELFPAY ==
--- NOTE | 2025-01-26 19:11 | ED_ITS ---
<Statement entered by Garrett Rooney MD - 01/26/25 23:32> I was consulted by the STACY, and we discussed the complexity of the problems being addressed. I approved the treatment and management plan for this patient's care in the emergency department, thus performing a substantive portion of the medical decision making. Garrett Rooney MD, ELENA, FACEP Discharge Plan Disposition Patient Disposition: Admitted Condition: Serious Prescriptions Prescriptions: No Action bupropion HCl 150 mg tablet extended release 24 hr 150 mg PO DAILY megestrol 400 mg/10 mL (40 mg/mL) suspension 400 mg PO DAILY rosuvastatin 40 mg tablet 40 mg PO DAILY ergocalciferol (vitamin D2) [Vitamin D2] 1,250 mcg (50,000 unit) capsule 1,250 mcg PO WEEKLY losartan 25 mg tablet 25 mg PO DAILY Qty: 30 3RF bisoprolol fumarate 5 mg tablet 5 mg PO DAILY Qty: 30 3RF clonazepam 1 mg tablet 1 mg PO TID Patient Comments: TAKE ONE TABLET BY MOUTH TWICE DAILY aspirin 81 mg tablet,delayed release (DR/EC) 81 mg PO DAILY Patient Comments: TAKE ONE TABLET BY MOUTH ONCE DAILY methocarbamol 750 mg tablet 1,500 mg PO TID 5 Days Qty: 30 0RF lidocaine 5 % adhesive patch,medicated 1 patch topical DAILY Qty: 30 0RF Rx Instructions: leave on most painful area for up to 12 hrs Referrals Follow up/Referrals: Tiffani Mcfarland APRN [Primary Care Provider] - See instructions Clinical Impressions Clinical Impression: Acute hypoxemic respiratory failure, Multifocal pneumonia Print Language Print Language: Croatian Discharge ED Provider: Garrett Rooney HPI General Chief Complaint: Shortness of Breath/Dyspnea Stated Complaint: SOA,weakness Time Seen by Provider: 01/26/25 19:11 History of Present Illness HPI narrative: Patient presents for evaluation of shortness of breath. Patient has had several days of increasing shortness of breath. She went and saw her PCP on Friday and was reportedly diagnosed with pneumonia put on antibiotic although the patient is not sure what. She does have a history of COPD but is not on home oxygen and is an ongoing smoker. She does not have a home nebulizer. She has had no improvement and increasing shortness of breath even sitting still but denies fever chest pain chills hemoptysis hematochezia melena nausea vomiting diarrhea. Related Data Home Medications ?Medication ?Instructions ?Recorded ?Confirmed bupropion HCl 150 mg 24 hr tablet, 150 mg PO DAILY 09/10/23 11/24/24 extended release ergocalciferol (vitamin D2) 1,250 1,250 mcg PO WEEKLY 09/10/23 11/24/24 mcg (50,000 unit) capsule (Vitamin D2) megestrol 400 mg/10 mL (40 mg/mL) 400 mg PO DAILY 09/10/23 11/24/24 oral suspension rosuvastatin 40 mg tablet 40 mg PO DAILY 09/10/23 11/24/24 aspirin 81 mg tablet,delayed 81 mg PO DAILY 11/24/24 11/24/24 release clonazepam 1 mg tablet 1 mg PO TID 11/24/24 11/24/24 Previous Rx's ?Medication ?Instructions ?Recorded bisoprolol fumarate 5 mg tablet 5 mg PO DAILY #30 tabs 09/10/23 losartan 25 mg tablet 25 mg PO DAILY #30 tabs 09/10/23 lidocaine 5 % topical patch 1 patch topical DAILY #30 ea 11/24/24 methocarbamol 750 mg tablet 1,500 mg (2 x 750 mg) PO TID 5 11/24/24 days #30 tabs Allergies Allergy/AdvReac Type Severity Reaction Status Date / Time No Known Allergies Allergy Verified 11/24/24 18:18 [facility] Disclaimer: The information contained in this section may have been updated after the patient was seen, as this information can be updated by other users. Medical History Nausea Edema of both lower extremities Crescendo angina Family history of ischemic heart disease Tobacco use Tachycardia Abnormal electrocardiogram [ECG] [EKG] High cholesterol COPD (chronic obstructive pulmonary disease) Hypertension Surgical History Hx of hysterectomy Family History Grandmother Cancer Other Alcoholism Social History Smoking Status: Current every day smoker tobacco type: cigarettes packs per day: 1 alcohol intake: never current occupational status: other Travel in the last 8 weeks: None Have you lived/traveled outside [place] in past 30 days?: No Contact w/someone who lives/traveled outside US past 30 days?: No Exposure to someone with infectious disease in past 14 days?: No Do you have a fever (greater than 100.4 F or 38 C)?: No Have you tested positive for COVID-19: No Exposed to someone with COVID-19 in past 14 days?: No Do you have a sore throat?: No Do you have a cough?: No Do you have any weakness?: No Do you have any diarrhea?: No Are you experiencing any unusual bleeding?: No Do you have any muscle aches/pain?: No Do you have any abdominal pain?: No Are you experiencing loss of taste or smell?: No Other Medical History Have you received the Pneumonia Vaccine: No ROS Obtained: Yes Systems reviewed as appropriate & no additional complaints except as documented Physical Exam General General appearance: alert Respiratory Respiratory exam: Present respiratory distress, wheezes, accessory muscle use and prolonged expiratory phase Cardiovascular Cardiovascular exam: Present tachycardia Neurological Exam Neurological exam: Present alert, oriented X3 and CN II-XII intact HEART Score HEART Score HEART Score assessment performed?: Yes History (anamnesis): Slightly suspicious ECG: Non-specific disturbance Age: >65 years Risk factors: Atherosclerosis history Troponin: </= normal limit HEART Score: 5 Critical Care Critical Care Time Critical Care Time: Yes Attestation: On 01/26/25, the high probability of a clinically significant, sudden or life threatening deterioration of the following system(s) required my full and direct attention, intervention and personal management. The time I documented below is in addition to time spent performing reported procedures but includes the following listed in this critical care notation. Total Time Total Critical Care Time: 35 Medical Decision Making Medical Records Medical records reviewed: Yes I reviewed the patient's medical records. Denny Inquiry Pt receiving controlled substance: No Vital Signs Vital Signs: 01/26/25 19:13 01/26/25 19:18 01/26/25 20:30 Temperature 98.4 F Temperature Source Oral Pulse Rate 112 H Pulse Rate [Apical] 120 H Respiratory Rate 20 Blood Pressure 128/68 Blood Pressure [Right Arm] 153/79 H Blood Pressure Mean 86 Blood Pressure Mean [Right Arm] 103 02 Sat by Pulse Oximetry 75 L 100 99 Oxygen Delivery Method Room Air Nasal Cannula Nasal Cannula Oxygen Flow Rate (LPM) 4 2 Lab Data Lab results reviewed: Yes I reviewed the patient's lab results. Labs: Lab Results 01/26/25 19:20: WBC 7.9, RBC 3.73 L, Hgb 10.0 L, Hct 32.0 L, MCV 85.8, MCH 26.8 L, MCHC 31.3 L, RDW 15.2, Plt Count 337, MPV 8.5, Neut % (Auto) 89.9 H, Lymph % (Auto) 5.8 L, [place] % (Auto) 3.6, Eos % (Auto) 0.1, Baso % (Auto) 0.3, Neut # (Auto) 7.1, Lymph # (Auto) 0.5 L, [place] # (Auto) 0.3, Eos # (Auto) 0.0, Baso # (Auto) 0.0, PT 10.5, INR 0.93, Sodium 137, Potassium 4.0, Chloride 98, Carbon Dioxide 30, Anion Gap 13.0, BUN 14, Creatinine 0.50 L, Estimated Creat Clear 31, Estimated GFR 123, Est GFR ( Amer) 149, Glucose 122 H, Calcium 9.1, Magnesium 2.0, Total Bilirubin 0.6, AST 42 H, ALT 21, Alkaline Phosphatase 112, Troponin I 0.01, NT-Pro-B Natriuret Pep 2360 H, Total Protein 7.4, Albumin 3.6, Globulin 3.8 H, Albumin/Globulin Ratio 0.9 L, Procalcitonin 10.3 H 01/26/25 19:30: VBG pH 7.36, VBG pCO2 50.0, VBG pO2 27.3 L, VBG HCO3 27.5, VBG Total CO2 29.1 H, VBG O2 Saturation 49.5 L, VBG Base Excess 2.1, VBG Lactic Acid 1.9 01/26/25 19:20 01/26/25 19:20 Response Orders (Tests/Meds): ED MEDICATIONS Generic Name Dose Route Start Last Admin Trade Name Freq PRN Reason Stop Dose Admin Acetaminophen 650 mg 01/26/25 20:50 Acetaminophen 325mg Tab PO 02/25/25 20:49 Q4HP PRN Fever or Mild Pain (1-3) Albuterol/Ipratropium 3 ml 01/26/25 20:50 Ipratropium/Albuterol 3 Ml [facility] 02/25/25 20:49 Q4HP PRN Shortness Of Breath Or Wheezing Benzonatate 200 mg 01/26/25 20:00 01/26/25 20:02 Benzonatate 100mg Capsule PO 02/25/25 19:59 200 mg ONCE GABRIELE Administration Enoxaparin Sodium 40 mg 01/27/25 09:00 Enoxaparin 40mg/0.4ml Syringe SUBCUT 02/26/25 08:59 DAILY GABRIELE Magnesium Sulfate 2 gm in 50 mls @ 50 mls/hr 01/26/25 20:54 Magnesium Sulfate 2gm/50ml Premix IV 01/26/25 21:53 ONCE ONE Nicotine 21 mg 01/26/25 20:50 Nicotine 21mg/24hr Patch TD 02/25/25 20:49 DAILYP PRN Nicotine Cravings Sodium Chloride 3 ml 01/26/25 19:27 Sodium Chloride 3% 15ml [facility] 02/25/25 19:26 ONCE PRN INDUCE SPUTUM COLLECTION Discontinued Medications Generic Name Dose Route Start Last Admin Trade Name Freq PRN Reason Stop Dose Admin Albuterol/Ipratropium 9 ml 01/26/25 19:27 01/26/25 19:35 Ipratropium/Albuterol 3 Ml [facility] 01/26/25 19:28 9 ml ONCE ONE Administration Ceftriaxone Sodium 1 gm/ 50 mls @ 100 mls/hr 01/26/25 19:30 01/26/25 19:41 Sodium Chloride IV 01/26/25 19:59 100 mls/hr ONCE ONE Administration Azithromycin 500 mg/ Sodium 250 mls @ 250 mls/hr 01/26/25 19:30 01/26/25 20:01 Chloride IV 01/26/25 20:29 250 mls/hr ONCE ONE Administration Iopamidol 80 ml 01/26/25 20:05 01/26/25 20:06 Iopamidol-370 (76%);100ml Bottle IV 01/26/25 20:06 80 ml ONCE ONE Administration Methylprednisolone Sodium Succinate 125 mg 01/26/25 19:27 01/26/25 19:41 Methylprednisolone Sod Succ 125mg Vial IV 01/26/25 19:28 125 mg ONCE ONE Administration Sodium Chloride 50 ml 01/26/25 20:05 01/26/25 20:06 0.9 % Sodium Chloride 50 Ml Vial IV 01/26/25 20:06 50 ml ONCE ONE Administration Sodium Chloride 10 ml 01/26/25 20:05 01/26/25 20:06 Sodium Chloride 0.9% 10ml Syr (Rad Only) IV 01/26/25 20:06 10 ml ONCE ONE Administration ORDERS Category Date Time Status CT angio chest PE protocol Stat Cat Scan 01/26/25 19:28 Completed BNP [NT Pro Brain Natriuretic Pep.] Stat Lab 01/26/25 19:20 Completed Basic Metabolic Panel AMLAB Lab 01/27/25 06:00 Ordered Basic Metabolic Panel AMLAB Lab 01/28/25 06:00 Ordered Basic Metabolic Panel AMLAB Lab 01/29/25 06:00 Ordered Basic Metabolic Panel AMLAB Lab 01/30/25 06:00 Ordered Basic Metabolic Panel AMLAB Lab 01/31/25 06:00 Ordered CBC w/Auto Diff [Complete Blood Count Auto Diff] Stat Lab 01/26/25 19:20 Completed CMP [Comprehensive Metabolic Panel] Stat Lab 01/26/25 19:20 Completed Complete Blood Count Auto Diff AMLAB Lab 01/27/25 06:00 Ordered Complete Blood Count Auto Diff AMLAB Lab 01/28/25 06:00 Ordered Complete Blood Count Auto Diff AMLAB Lab 01/29/25 06:00 Ordered Complete Blood Count Auto Diff AMLAB Lab 01/30/25 06:00 Ordered Complete Blood Count Auto Diff AMLAB Lab 01/31/25 06:00 Ordered Full Resp Panel w/COVID ([facility]) Routine Lab 01/26/25 19:32 Received INR [Prothrombin Time INR] Stat Lab 01/26/25 19:20 Completed Magnesium AMLAB Lab 01/27/25 06:00 Ordered Magnesium Stat Lab 01/26/25 19:20 Completed Phosphorous AMLAB Lab 01/27/25 06:00 Ordered Procalcitonin Stat Lab 01/26/25 19:20 Completed Trop I [Troponin I] Stat Lab 01/26/25 19:20 Completed Troponin I Q3H Lab 01/26/25 22:30 Ordered Troponin I Q3H Lab 01/27/25 01:30 Ordered UA [Urinalysis and Microscopic] Stat Lab 01/26/25 19:29 Ordered Blood Culture Stat Micro 01/26/25 19:23 Received Sputum Culture & Gram Stain Stat Micro 01/26/25 19:27 Ordered VBG [Venous Blood Gas] Stat RT 01/26/25 19:30 Completed Tissue Perfus/Sepsis Re-Eval Sepsis Re-Evaluation Performed: Yes Date Performed: 01/26/25 Time Performed: 20:49 MDM Narrative Medical Decision Narrative: In summary patient is a 64-year-old female who presents to the emergency department for evaluation of dyspnea. Patient is hemodynamically unstable but normotensive with a blood pressure of 153/79 tachycardic at 120 with sinus tachycardia the bedside monitor breathing 20 times a minute but satting at 75% on room air upon arrival, afebrile at 98.4. Physical exam reveals a cachectic appearing much older than stated age. 64-year-old female who appears to be having increased work of breathing. Patient has accessory muscle use and pursed lipped exhalation's. Auscultation the breath sounds reveals wheezes in the left lung ziegler diminished air entry in the right lung bases with wheezes in the upper lung ziegler.. Differential diagnosis includes COPD exacerbation versus PE versus viral bacterial pneumonia versus ACS etc. Initial workup will be conducted with hematologic labs VBG blood culture sputum culture full respiratory panel CT scan PE protocol. Initial interventions include supplemental O2 continuous pulse oximetry continuous cardiac monitoring DuoNeb Solu-Medrol magnesium. Initial workup reviewed by me shows that her white count is 7.9 hemoglobin hematocrit of 10 and 32.0 neutrophil count is 7.1 INR 0.93 VBG shows a pH of 7.36 pCO2 of 50P O2 of 27 VBG lactic acid 1.9, creatinine 0.5 glucose 122 AST of 42 NT proBNP of 2360 troponin is 0.01 and her procalcitonin is 10.3 and my informal interpretation of her CT PE protocol does not show any evidence of thrombus but shows multifocal groundglass infiltrates which could be atypical or viral but no focal consolidations prior to radiology read.. Upon repeat evaluation despite initial intervention patient is unable to be weaned off of O2 and her O2 sat drops precipitously down into the 70s. Given this I had an interactive discussion with hospital medicine regarding patient presentation DICKERSON results and patient management and she will be admitted for further evaluation and care.
[2025-01-26 19:13] VITALS: BP 153/79; PULSE 120; RESP 20; TEMP 36.9; O2SAT 75; BMI 14.9
[2025-01-26 19:18] VITALS: O2SAT 100
--- NOTE | 2025-01-26 19:28 | CT_ITS ---
PROCEDURE INFORMATION: Exam: CTA Chest With Contrast Exam date and time: 01/26/2025 8:05 PM Age: 64 years old Clinical indication: Other: Acute hypoxemic respiratory failure TECHNIQUE: Imaging protocol: Computed tomographic angiography of the chest with contrast. Exam focused on the arteries. 3D rendering (Not supervised by radiologist): MIP and/or 3D reconstructed images were created by the technologist. Radiation optimization: All CT scans at this facility use at least one of these dose optimization techniques: automated exposure control; mA and/or kV adjustment per patient size (includes targeted exams where dose is matched to clinical indication); or iterative reconstruction. Contrast material: ISOVUE; Contrast volume: 70 ml; Contrast route: INTRAVENOUS (IV); COMPARISON: CT ANGIO CHEST PE PROTOCOL 10/08/2024 6:02 PM FINDINGS: Pulmonary arteries: No central or segmental pulmonary arterial intraluminal filling defect identified. Aorta: Atherosclerotic calcification of thoracic aorta without aneurysm or obvious dissection. Lungs: Patchy left perihilar/infrahilar peribronchial tree-in-bud opacities. Right middle lobar and basilar opacities. Similar right apical pleural thickening/scarring. Underlying emphysematous changes throughout both lungs. No consolidation. No masses. Pleural spaces: Unremarkable. No pneumothorax. No pleural effusion. Heart: Unremarkable. No cardiomegaly. No pericardial effusion. Lymph nodes: Calcified mediastinal lymph nodes without lymphadenopathy. Bones/joints: Unremarkable. No acute fracture. Soft tissues: Unremarkable. IMPRESSION: 1. No central or segmental pulmonary arterial embolism identified. 2. Bilateral peribronchial tree-in-bud infiltration, left worse than right. COMMENTS: The presence of pulmonary emphysema on CT is an independent risk factor for lung cancer. In the absence of a history or active diagnosis of lung cancer, it is recommended that this patient with emphysema be evaluated for enrollment in a low dose CT lung cancer screening program.
[2025-01-26] MEDS: IPRATROPIUM/ALBUTEROL 3 ML NEB 9 ML IH (19:35)
[2025-01-26 19:36] LABS: Adenovirus,PCR Not Detected (NotDetected); Bordetella Pertussis Not Detected (NotDetected); Chlamydophila Pneumoniae, PCR Not Detected (NotDetected); Coronavirus 19, PCR Not Detected (NotDetected); Coronavirus 229E Not Detected (NotDetected); Coronavirus NL63 Not Detected (NotDetected); Coronavirus OC43 Not Detected (NotDetected); Coronovirus HKU1,PCR Not Detected (NotDetected); Human Metapneumovirus Not Detected (NotDetected); Influenza A, PCR Not Detected (NotDetected); Influenza AH1, 2009 Not Detected (NotDetected); Influenza AH1, PCR Not Detected (NotDetected); Influenza AH3,PCR Not Detected (NotDetected); Influenza B, PCR Not Detected (NotDetected); Mycoplasma Pneumoniae, PCR Not Detected (NotDetected); Parainfluenza 1, PCR Not Detected (NotDetected); Parainfluenza 2, PCR Not Detected (NotDetected); Parainfluenza 3, PCR Not Detected (NotDetected); Parainfluenza 4, PCR Not Detected (NotDetected); Respiratory Syncytial Virus Not Detected (NotDetected)
[2025-01-26 19:37] LABS: Lactate Venous 1.9 mmol/L (0.4-2.0); VBG Base Excess 2.1 mmol/L (-2.4-2.3); VBG HCO3 27.5 mmol/L (23-30); VBG Oxygen Saturation 49.5 % (50-70); VBG PH 7.36 mmol/L (7.31-7.41); VBG PO2 27.3 mmol/L (28-40); VBG Total CO2 29.1 mmol/L (23-27)
[2025-01-26 19:40] LABS: Basophils % 0.3 % (0.1-2.0); Eosinophils % 0.1 % (0.1-12.0); Lymphocytes # 0.5 K/mm3 (0.7-4.5); Lymphocytes % 5.8 % (10-50); Mean Corpuscular HGB Conc 31.3 g/dL (31.8-35.4); Mean Corpuscular Hemoglobin 26.8 pg (27.0-31.2); Mean Corpuscular Volume 85.8 fl (81-99); Mean Platelet Volume 8.5 fl (7.4-10.4); Monocytes # 0.3 K/mm3 (0.1-1.0); Monocytes % 3.6 % (1.7-9.3); Neutrophils # 7.1 K/mm3 (1.8-7.8); Neutrophils % 89.9 % (37.0-80.0); Nucleated Red Blood Cells # 0 10^3/uL; Nucleated Red Blood Cells % 0 %; Platelet Count 337 K/mm3 (142-424); Red Blood Count 3.73 M/mm3 (4.20-5.40); Red Cell Distribution Width 15.2 % (11.5-17.5); Red Cell Distribution Width-SD 47.8 fL; White Blood Count 7.9 K/mm3 (4.8-10.8)
[2025-01-26] MEDS: METHYLPREDNISOLONE SOD SUCC 125MG VIAL 125 MG IV (19:41)
[2025-01-26] MEDS: CEFTRIAXONE 1 GM 1 GM in 0.9 % SODIUM CHLORIDE 50 ML IV (19:41)
[2025-01-26 19:49] LABS: Alanine Aminotransferase 21 U/L (12-78); Albumin Level 3.6 g/dl (3.5-5.0); Albumin/Globulin Ratio 0.9 (1.1-1.8); Alkaline Phosphatase 112 U/L (38-126); Aspartate Amino Transferase 42 U/L (14-36); Bilirubin,Total 0.6 mg/dl (0.2-1.3); Blood Urea Nitrogen 14 mg/dl (7-17); Calcium 9.1 mg/dl (8.4-10.2); Carbon Dioxide 30 mmol/L (22.0-30.0); Chloride 98 mmol/L (98-107); Creatinine Clearance Estimated 31 mL/min (50-200); Estimated Glomerular Filt Rate 123 ml/min (>60); GFR (African American) 149 ML/MIN (>60); Globulin 3.8 g/dL (1.3-3.2); Glucose 122 mg/dl (74-100); Sodium 137 mmol/L (136-145); Total Protein,Serum 7.4 g/dl (6.3-8.2)
[2025-01-26 19:57] LABS: INR 0.93 (0.9-1.1); Prothrombin Time 10.5 seconds (10.1-12.5)
[2025-01-26 20:00] LABS: NT Pro Brain Natriuretic Pep. 2360 pg/mL (0-125)
[2025-01-26] MEDS: AZITHROMYCIN 500 MG in 0.9 % SODIUM CHLORIDE 250 ML 250 MG IV (20:01)
[2025-01-26] MEDS: BENZONATATE 100MG CAPSULE 200 MG PO (20:02)
[2025-01-26 20:04] LABS: Troponin I 0.01 ng/ml (0.00-0.034)
--- NOTE | 2025-01-26 20:04 | PC.NURSE ---
PT LEFT VIA WHEELCHAIR TO RADIOLOGY WITH [facility]
[2025-01-26] MEDS: SODIUM CHLORIDE 0.9% 10ML SYR (RAD ONLY) 10 ML IV (20:06)
[2025-01-26] MEDS: IOPAMIDOL-370 (76%);100ML BOTTLE 80 ML IV (20:06)
[2025-01-26] MEDS: 0.9 % SODIUM CHLORIDE 50 ML VIAL IV (20:06)
[2025-01-26 20:07] LABS: Procalcitonin 10.3 ng/mL (0.0-2.0)
--- NOTE | 2025-01-26 20:15 | PC.NURSE ---
PT BACK FROM RADIOLOGY, PLACED BACKON MONITOR. MEDS GIVEN FOR COUGH, NEW IV ABX STARTED. PT VITALS UPDAED
[2025-01-26 20:30] VITALS: BP 128/68; PULSE 112; O2SAT 99
--- NOTE | 2025-01-26 20:45 | PC.NURSE ---
pt being admitted to hospitalist. called bunk house worker for bed assignment
[2025-01-26 20:57] LABS: Rhinovirus/Enterovirus Detected (NotDetected)
--- NOTE | 2025-01-26 20:59 | P.HP_ITS ---
<Statement entered by Hai Green MD - 01/27/25 18:09> Rounded on patient after nurse practitioner. Personally examined and interviewed patient. Agree with exam findings and care plan as documented. History of Present Illness *Admission Date: 01/26/25 *Reason for visit:: Shortness of Breath *History of present illness: A 64-year-old female with a history of chronic obstructive pulmonary disease (COPD) and ongoing smoking presents to the emergency department for evaluation of dyspnea. She reports several days of increasing shortness of breath, worsening despite amoxicillin prescribed by her PCP on Friday for suspected pneumonia. She denies fever, chest pain, chills, hemoptysis, hematochezia, melena, nausea, vomiting, or diarrhea. She is not on home oxygen or a nebulizer. The history was obtained through interactive discussion with the patient, who is deemed reliable. On examination, the patient is hemodynamically unstable but normotensive (blood pressure 153/79), tachycardic (heart rate 120, sinus tachycardia on monitor), tachypneic (respiratory rate 20), with oxygen saturation 75% on room air, later requiring supplemental oxygen, and afebrile (98.4). Physical exam reveals a cachectic woman appearing older than stated age, with increased work of breathing, accessory muscle use, pursed-lip exhalations, wheezes in left lung ziegler, diminished air entry at right lung bases, and wheezes in upper lung ziegler. Diagnostic workup includes labs, VBG, blood culture, sputum culture, respiratory panel, and CT chest (PE protocol). Labs show normal WBC (7.9), anemia (hemoglobin 10.0, hematocrit 32.0), normal creatinine (0.5), GFR (123), normal electrolytes (sodium 137, potassium 4.0), elevated glucose (122), normal troponin (0.01), elevated NT-proBNP (2360), elevated procalcitonin (10.3), elevated AST (42), and normal INR (0.93). VBG shows pH 7.36, elevated pCO2 (50.0), low pO2 (27.3), and normal lactate (1.9). CT chest, independently interpreted, shows no pulmonary embolism but multifocal ground-glass infiltrates suggestive of atypical or viral pneumonia, with no focal consolidations; radiology read confirms bilateral peribronchial tree-in-bud infiltration (left worse than right) and notes pulmonary emphysema, recommending lung cancer screening. Respiratory panel later returned rhinovirus. Treatments implemented in the emergency department include supplemental oxygen (3L), continuous pulse oximetry and cardiac monitoring, (DuoNeb) nebulizers, methylprednisolonel, dose not specified, assumed and magnesium. A sepsis bolus (assumed 30 mL/kg IV normal saline), azithromycin , and ceftriaxone were administered for suspected sepsis. On reassessment, the patient?s work of breathing increased, with oxygen saturation dropping to the 70s without oxygen, requiring ongoing support with O2 saturation in the 90s percentile with reap plied oxygen at 2 L nasal cannula.. She was accepted by hospital medicine for admission in stable condition for further evaluation and management. [facility] Disclaimer: The information contained in this section may have been updated after the patient was seen, as this information can be updated by other users. Medical History Nausea Edema of both lower extremities Crescendo angina Family history of ischemic heart disease Tobacco use Tachycardia Abnormal electrocardiogram [ECG] [EKG] High cholesterol COPD (chronic obstructive pulmonary disease) Hypertension Surgical History Hx of hysterectomy Family History Grandmother Cancer Other Alcoholism Social History Smoking Status: Current every day smoker tobacco type: cigarettes packs per day: 1 alcohol intake: never current occupational status: other Travel in the last 8 weeks: None Have you lived/traveled outside [place] in past 30 days?: No Contact w/someone who lives/traveled outside US past 30 days?: No Exposure to someone with infectious disease in past 14 days?: No Do you have a fever (greater than 100.4 F or 38 C)?: No Have you tested positive for COVID-19: No Exposed to someone with COVID-19 in past 14 days?: No Do you have a sore throat?: No Do you have a cough?: No Do you have any weakness?: No Are you experiencing any nausea/vomitting?: No Do you have any diarrhea?: No Are you experiencing any unusual bleeding?: No Do you have any muscle aches/pain?: No Do you have any abdominal pain?: No Are you experiencing loss of taste or smell?: No Other Medical History Have you received the Pneumonia Vaccine: No Review of Systems Review of Systems Review of systems (narrative): 13 point review of systems negative except as listed in HPI Meds Home Medications and Allergies Home Medications ?Medication ?Instructions ?Recorded ?Confirmed ?Type aspirin 81 mg tablet,delayed 81 mg PO DAILY 11/24/24 01/26/25 History release clonazepam 1 mg tablet 1 mg PO BID 11/24/24 01/26/25 History amoxicillin 875 mg-potassium 1 tab PO BID 01/26/25 01/26/25 History clavulanate 125 mg tablet benzonatate 200 mg capsule 200 mg PO TID PRN Cough 01/26/25 01/26/25 History megestrol 20 mg tablet 20 mg PO QID 01/26/25 01/26/25 History mometasone-formoterol HFA 100 2 puff inhalation BID 01/26/25 01/26/25 History mcg-5 mcg/actuation aerosol inhaler (Dulera) prednisone 20 mg tablet 40 mg PO DAILY 01/26/25 01/26/25 History rosuvastatin 20 mg tablet 20 mg PO DAILY 01/26/25 01/26/25 History New Prescriptions to Start Prescriptions: Allergies Allergy/AdvReac Type Severity Reaction Status Date / Time No Known Allergies Allergy Verified 11/24/24 18:18 Exam Data for Last 24 hours Vital signs and Labs for Last 24 Hours: Temp Pulse Resp BP Pulse Ox O2 Del Method O2 Flow Rate 98.4 F 112 H 20 128/68 99 Nasal Cannula 2 01/26/25 19:13 01/26/25 20:30 01/26/25 19:13 01/26/25 20:30 01/26/25 20:30 01/26/25 20:30 01/26/25 20:30 Laboratory Results - last 24 hr 01/26/25 19:20: WBC 7.9, RBC 3.73 L, Hgb 10.0 L, Hct 32.0 L, MCV 85.8, MCH 26.8 L, MCHC 31.3 L, RDW 15.2, Plt Count 337, MPV 8.5, Neut % (Auto) 89.9 H, Lymph % (Auto) 5.8 L, [place] % (Auto) 3.6, Eos % (Auto) 0.1, Baso % (Auto) 0.3, Neut # (Auto) 7.1, Lymph # (Auto) 0.5 L, [place] # (Auto) 0.3, Eos # (Auto) 0.0, Baso # (Auto) 0.0, PT 10.5, INR 0.93, Sodium 137, Potassium 4.0, Chloride 98, Carbon Dioxide 30, Anion Gap 13.0, BUN 14, Creatinine 0.50 L, Estimated Creat Clear 31, Estimated GFR 123, Est GFR ( Amer) 149, Glucose 122 H, Calcium 9.1, Magn esium 2.0, Total Bilirubin 0.6, AST 42 H, ALT 21, Alkaline Phosphatase 112, Troponin I 0.01, NT-Pro-B Natriuret Pep 2360 H, Total Protein 7.4, Albumin 3.6, Globulin 3.8 H, Albumin/Globulin Ratio 0.9 L, Procalcitonin 10.3 H 01/26/25 19:30: VBG pH 7.36, VBG pCO2 50.0, VBG pO2 27.3 L, VBG HCO3 27.5, VBG Total CO2 29.1 H, VBG O2 Saturation 49.5 L, VBG Base Excess 2.1, VBG Lactic Acid 1.9 01/26/25 19:32: Chlamy pneumoniae PCR Not detected, Adenovirus (PCR) Not detected, B. pertussis DNA (PCR) Not detected, Coronavirus OC43 (PCR) Not detected, Coronavirus HKU1 (PCR) Not detected, Coronavirus 229E (PCR) Not detected, SARS-CoV-2 (PCR) Not detected, Coronavirus NL63 (PCR) Not detected, Human Metapneumovir PCR Not detected, Influenza A (H1) PCR Not detected, Influ A (H1N1/09) PCR Not detected, Influenza A (H3) PCR Not detected, Influenza Type A (PCR) Not detected, Influenza Type B (PCR) Not detected, M. pneumoniae (PCR) Not detected, Parainfluenza 1 (PCR) Not detected, Parainfluenza 2 (PCR) Not detected, Parainfluenza 3 (PCR) Not detected, Parainfluenza 4 (PCR) Not detected, RSV (PCR) Not detected, Entero/Rhino (PCR) Detected A I & O for Last 24 hours: Intake & Output 01/23/25 01/24/25 01/25/25 01/26/25 23:59 23:59 23:59 23:59 Weight 35.834 kg Constitutional Constitutional: mild distress, cachectic and chronically ill appearing *Routine HEENT Exam Head: Present normocephalic Eye: Present EOMI and PERRL ENT: Present mucous membranes moist *Routine Neck Exam Neck: Present supple; Absent lymphadenopathy *Routine Respiratory Exam Respiratory: Present CTA bilaterally *Routine Cardiovascular Exam Cardiovascular: Present RRR *Routine Abdominal Exam Abdominal: Present soft and normoactive bowel sounds; Absent tenderness *Routine Rectal Exam Rectal:: deferred *Routine Genitalia Exam Genitalia:: deferred *Routine Extremities Exam Extremities: Absent cyanosis, clubbing or edema *Routine Skin Exam Skin: Present warm; Absent rash *Routine Neurological Exam Neurological: Present alert and oriented X3 Assessment and Plan *Assessment and plan (1) Multifocal pneumonia: Status: Acute Category: Medical Code(s): J18.9 - Pneumonia, unspecified organism (2) Acute hypoxemic respiratory failure: Status: Acute Category: Medical Code(s): J96.01 - Acute respiratory failure with hypoxia (3) Rhinovirus infection: Status: Acute Category: Medical Code(s): B34.8 - Other viral infections of unspecified site Plan * Severe Sepsis: Tachycardia (HR 120), hypoxia (O2 75% on room air), procalcitonin 10.3, lactate 1.9, likely from enterovirus pneumonia, in a patient with COPD and smoking history, normotensive (BP 153/79). * Discontinue ceftriaxone and azithromycin, as enterovirus pneumonia (viral) does not require antibiotics, and procalcitonin 10.3 may reflect inflammation rather than bacterial infection; monitor for secondary bacterial infection (sputum culture pending). * Complete IV normal saline bolus (30 mL/kg); maintain fluids at 50 mL/hour, targeting MAP >65, monitoring for fluid overload (NT-proBNP 2360). * Monitor lactate every 6 hours until <2; check blood/sputum cultures for growth to rule out bacterial co-infection. * Monitor vitals every 2 hours, targeting HR <100, O2 >92; consult infectious disease if fever, leukocytosis (WBC 7.9), or worsening sepsis signs develop. * Admit to medical-surgical floor with telemetry for sepsis monitoring. * Enterovirus Pneumonia: CT showing multifocal ground-glass infiltrates and tree-in-bud infiltration (left worse), respiratory panel positive for enterovirus, with cough, dyspnea, and hypoxia, no focal consolidations, in a patient with COPD. * Continue supportive care; no antiviral therapy indicated for enterovirus pneumonia (no specific treatment per IDSA guidelines). * Maintain 2?4 L nasal cannula, titrating to O2 >92; consider high-flow oxygen if saturation falls below 90 or work of breathing increases. * Monitor for worsening cough, fever, or hemoptysis every 4 hours; order repeat chest X-ray in 24 hours to assess progression. * Chronic Obstructive Pulmonary Disease (COPD) Exacerbation: Increased work of breathing, accessory muscle use, wheezes, diminished right base air entry, pCO2 50.0, with enterovirus pneumonia complicating, in a smoker with COPD, no home oxygen. * Continue albuterol-ipratropium (DuoNeb) nebulizer every 4?6 hours as needed for wheezing. * Continue methylprednisolone 40 mg IV twice daily daily for 3 days, then taper to prednisone 40 mg oral daily for 5 days to reduce airway inflammation. * Maintain magnesium sulfate 2 g IV every 8 hours if bronchospasm persists; recheck magnesium (2.0) in 12 hours. * Monitor respiratory rate, saturation, and work of breathing every 2 hours; escalate to BiPAP if pCO2 rises or saturation <88. * smoking cessation counseling; offer nicotine replacement (e.g., 21 mg patch daily). * Heart Failure Exacerbation (Suspected): Elevated NT-proBNP (2360), dyspnea, and hypoxia, with possible volume overload in a patient with COPD and smoking, no chest pain or EKG changes (troponin 0.01). * Hold furosemide (Lasix) due to sepsis and viral pneumonia-driven dyspnea, no clear edema, and risk of hypovolemia (lactate 1.9); consider 20 mg IV daily if NT-proBNP rises above 3000 or edema develops, with potassium monitoring (4.0). * Consider echocardiogram to assess ejection fraction and rule out heart failure as dyspnea contributor. * Monitor daily weights, input/output, and edema every 8 hours; restrict sodium to 2 g/day. * Consult cardiology if NT-proBNP rises or dyspnea persists despite pneumonia treatment. * Recheck NT-proBNP in 24 hours to trend. * Anemia (Mild): Hemoglobin 10.0, hematocrit 32.0, likely chronic or related to smoking/COPD, no active bleeding noted. * Recheck CBC in 24 hours to monitor anemia; consult hematology if hemoglobin falls below 8.0 or symptoms (fatigue, dyspnea) worsen. * Monitor for pallor, fatigue, or new bleeding * Order iron studies and ferritin if anemia progresses to assess for deficiency vs. chronic disease. * Coronary Artery Disease (CAD, Suspected): No acute chest pain, troponin 0.01, but at risk with smoking and tachycardia, no EKG changes reported. * Verify home anti-ischemic medications (e.g., aspirin, statin); continue unless hypotension develops. * Monitor for chest pain or ischemic symptoms every 4 hours; repeat EKG if symptoms arise. * Consult cardiology if troponin rises or new EKG changes occur. * Maintain MAP >65 to ensure coronary perfusion. * Tobacco Dependence: Ongoing smoking, exacerbating COPD and pneumonia, pulmonary emphysema on CT, recommended for lung cancer screening. * Offer nicotine replacement (e.g., 21 mg patch daily) and smoking cessation counseling. * Consult pulmonology for lung cancer screening referral (per CT recommendation) post-discharge. * Educate patient on smoking cessation benefits for COPD and cardiovascular health. Additional Orders: * Admit to medical-surgical floor with telemetry for sepsis, enterovirus pneumonia, and COPD management. * Maintain supplemental oxygen (2?4 L nasal cannula), titrating to saturation >92. * Offer acetaminophen 650 mg oral every 6 hours as needed; avoid NSAIDs due to renal risk. * Educate patient on pneumonia, COPD, and smoking cessation. * Arrange outpatient follow-up with pulmonology, cardiology, primary care.
[2025-01-26 21:01] VITALS: BP 148/78; PULSE 113; RESP 18; TEMP 36.6; O2SAT 80; BMI 14.9
[2025-01-26] MEDS: MAGNESIUM SULFATE IN WATER 2 GM/50 ML PIGGYBACK IV (21:28)
[2025-01-26 21:29] VITALS: BP 128/74; PULSE 88; RESP 24; TEMP 36.6; O2SAT 100
--- NOTE | 2025-01-26 21:34 | PC.NURSE ---
Patient arrived to floor via wheelchair from ED at 21:26.
[2025-01-26 21:45] VITALS: PULSE 105; RESP 18; O2SAT 95
[2025-01-26] MEDS: SODIUM CHLORIDE 3% 15ML NEB 3 ML IH (21:45)
[2025-01-26 23:25] LABS: Troponin I < 0.01 ng/ml (0.00-0.034)
[2025-01-27] VITALS (9 sets, daily range): BP systolic 117–155; BP diastolic 53–80; PULSE 97–119; RESP 16–20; TEMP 36.6–37.1; O2SAT 82–98; BMI 14.9
[2025-01-27 02:05] LABS: Troponin I < 0.01 ng/ml (0.00-0.034)
[2025-01-27 04:12] LABS: Appearance,Urine CLEAR (Clear); Bilirubin,Urine Negative (Negative); Blood, Urine 1+ (Negative); Color,Urine YELLOW (Yellow); Glucose,Urine (UA) Negative (Negative); Ketones,Urine Negative (Negative); Leukocyte Esterase,Urine Negative (Negative); Microscopic, Urine URINE MICROSCOPIC (MICROSCOPIC); Nitrate,Urine Negative (Negative); Protein,Urine TRACE (Negative); Specific Gravity, Urine 1.015 (1.005-1.030); Urobilinogen,Urine 0.2 EU/dl (0.2)
[2025-01-27 04:30] LABS: Bacteria,Urine Trace /lpf; Squamous Epithelial Cell,Urine Occasional #/hpf (0-5)
[2025-01-27 06:57] LABS: Basophils % 0.2 % (0.1-2.0); Hematocrit 26.8 % (37.0-47.0); Lymphocytes # 0.4 K/mm3 (0.7-4.5); Lymphocytes % 9.3 % (10-50); Mean Corpuscular HGB Conc 32.1 g/dL (31.8-35.4); Mean Corpuscular Hemoglobin 26.9 pg (27.0-31.2); Mean Corpuscular Volume 83.8 fl (81-99); Mean Platelet Volume 8.7 fl (7.4-10.4); Monocytes # 0.1 K/mm3 (0.1-1.0); Monocytes % 2.2 % (1.7-9.3); Neutrophils # 4.1 K/mm3 (1.8-7.8); Neutrophils % 87.9 % (37.0-80.0); Nucleated Red Blood Cells # 0 10^3/uL; Nucleated Red Blood Cells % 0 %; Platelet Count 299 K/mm3 (142-424); Red Cell Distribution Width 14.9 % (11.5-17.5); Red Cell Distribution Width-SD 45.7 fL; White Blood Count 4.6 K/mm3 (4.8-10.8)
[2025-01-27 07:11] LABS: Chloride 101 mmol/L (98-107); Potassium 3.7 mmoL/L (3.5-5.1); Sodium 139 mmol/L (136-145)
[2025-01-27 07:14] LABS: Anion Gap 8.7 mEq/L (5-15); Blood Urea Nitrogen 11 mg/dl (7-17); Carbon Dioxide 33 mmol/L (22.0-30.0); Creatinine Clearance Estimated 31 mL/min (50-200); Estimated Glomerular Filt Rate 160 ml/min (>60); GFR (African American) 193 ML/MIN (>60)
[2025-01-27 07:15] LABS: Calcium 8.3 mg/dl (8.4-10.2); Glucose 127 mg/dl (74-100); Magnesium 2.3 mg/dl (1.6-2.3)
[2025-01-27 07:32] LABS: Hemoglobin 8.5 g/dL (12.2-16.2)
--- NOTE | 2025-01-27 07:45 | HMH.PHAINT1 ---
Pharmacy Intervention Comments: MEDICATION RECONCILIATION COMPLETED ON PATIENT USING EXTERNAL FILL HISTORY FROM PHARMACY. -ABDON JUAREZ, MOUSTAPHAD
[2025-01-27] MEDS: ASPIRIN EC 81MG TABLET 81 MG PO (09:07)
[2025-01-27] MEDS: FORMOTEROL IH ×2 (09:11→19:34)
[2025-01-27] MEDS: FUROSEMIDE 40MG/4ML VIAL 40 MG IV (09:11)
[2025-01-27] MEDS: ENOXAPARIN 40MG/0.4ML SYRINGE 40 MG SUBCUT (09:11)
[2025-01-27] MEDS: MOMETASONE IH ×2 (09:11→19:34)
--- NOTE | 2025-01-27 14:59 | PC.NURSE ---
pt was 82% on room air while at rest
--- NOTE | 2025-01-27 17:47 | PC.NURSE ---
pT HAS DONE WELL TODAY. REMAINS ON 2L NASAL CANNULA AND IS TOLERATING WELL. SHE IS EAGER TO GO HOME. VSS. ROOM AIR SAT WAS 82%
--- NOTE | 2025-01-27 18:00 | EXP.ACUTE.PN ---
Subjective *Date: 01/27/25 *Time: 18:00 Interval history: Patient feels little bit better today. Continues to require 2 L oxygen. Denies chest pain or nausea and vomiting. Still having cough. Disappointed she is not being discharged today. Seeing improvement in her dyspnea with breathing treatments Medical Exam Vital signs and Labs for Last 24 Hours: Vital Signs Temp Pulse Pulse Resp BP BP Pulse Ox 01/27/25 17:00 01/27/25 16:00 98.6 F 119 H 19 117/53 L 95 01/27/25 15:00 01/27/25 14:58 82 L 01/27/25 13:00 01/27/25 11:00 01/27/25 09:11 01/27/25 09:00 01/27/25 08:00 98.3 F 100 H 20 132/71 98 01/27/25 06:45 01/27/25 05:00 01/27/25 04:00 97.9 F 108 H 16 142/74 H 91 L 01/27/25 02:53 01/27/25 01:00 01/27/25 00:00 98.3 F 97 H 17 155/80 H 97 01/26/25 23:00 01/26/25 21:45 105 H 18 01/26/25 21:45 95 01/26/25 21:29 98 F 88 24 128/74 01/26/25 21:01 01/26/25 21:01 97.9 F 113 H 18 148/78 H 80 L 01/26/25 20:30 112 H 128/68 99 01/26/25 19:18 100 01/26/25 19:13 98.4 F 120 H 20 153/79 H 75 L O2 Del Method O2 Flow Rate 01/27/25 17:00 Nasal Cannula 2 01/27/25 16:00 Nasal Cannula 2 01/27/25 15:00 Nasal Cannula 2 01/27/25 14:58 Room Air 01/27/25 13:00 Nasal Cannula 2 01/27/25 11:00 Nasal Cannula 2 01/27/25 09:11 Nasal Cannula 2 01/27/25 09:00 Nasal Cannula 2 01/27/25 08:00 Nasal Cannula 2 01/27/25 06:45 Nasal Cannula 2 01/27/25 05:00 Nasal Cannula 2 01/27/25 04:00 Nasal Cannula 2 01/27/25 02:53 Nasal Cannula 2 01/27/25 01:00 Nasal Cannula 2 01/27/25 00:00 Nasal Cannula 2 01/26/25 23:00 Nasal Cannula 2 01/26/25 21:45 01/26/25 21:45 2 01/26/25 21:29 Room Air 01/26/25 21:01 Nasal Cannula 2 01/26/25 21:01 Nasal Cannula 3 01/26/25 20:30 Nasal Cannula 2 01/26/25 19:18 Nasal Cannula 4 01/26/25 19:13 Room Air Intake and Output 01/27/25 01/27/25 01/27/25 07:59 15:59 23:59 Intake Total 290 / 1052 762 / 1052 Output Total 500 / 500 0 / 500 0 / 500 Balance -210 / 552 762 / 552 0 / 552 Intake: Intake, Oral Amount 240 / 1002 762 / 1002 Intake, Total IV Amount 50 / 50 Magnesium Sulfate in Water 2 gm 50 / 50 In 50 ml @ 50 mls/hr IV ONCE ONE Rx#:[id number] Output: Output, Urine Amount 500 / 500 0 / 500 0 / 500 Other: Number of Voids 0 Number of Unmeasured Voids 0 1 Weight 35.834 kg Patient Weight 01/27/25 23:59 Weight 35.834 kg Laboratory Results - last 24 hr 01/26/25 19:20: WBC 7.9, RBC 3.73 L, Hgb 10.0 L, Hct 32.0 L, MCV 85.8, MCH 26.8 L, MCHC 31.3 L, RDW 15.2, Plt Count 337, MPV 8.5, Neut % (Auto) 89.9 H, Lymph % (Auto) 5.8 L, [place] % (Auto) 3.6, Eos % (Auto) 0.1, Baso % (Auto) 0.3, Neut # (Auto) 7.1, Lymph # (Auto) 0.5 L, [place] # (Auto) 0.3, Eos # (Auto) 0.0, Baso # (Auto) 0.0, PT 10.5, INR 0.93, Sodium 137, Potassium 4.0, Chloride 98, Carbon Dioxide 30, Anion Gap 13.0, BUN 14, Creatinine 0.50 L, Estimated Creat Clear 31, Estimated GFR 123, Est GFR ( Amer) 149, Glucose 122 H, Calcium 9.1, Magnesium 2.0, Total Bilirubin 0.6, AST 42 H, ALT 21, Alkaline Phosphatase 112, Troponin I 0.01, NT-Pro-B Natriuret Pep 2360 H, Total Protein 7.4, Albumin 3.6, Globulin 3.8 H, Albumin/Globulin Ratio 0.9 L, Procalcitonin 10.3 H 01/26/25 19:30: VBG pH 7.36, VBG pCO2 50.0, VBG pO2 27.3 L, VBG HCO3 27.5, VBG Total CO2 29.1 H, VBG O2 Saturation 49.5 L, VBG Base Excess 2.1, VBG Lactic Acid 1.9 01/26/25 19:32: Chlamy pneumoniae PCR Not detected, Adenovirus (PCR) Not detected, B. pertussis DNA (PCR) Not detected, Coronavirus OC43 (PCR) Not detected, Coronavirus HKU1 (PCR) Not detected, Coronavirus 229E (PCR) Not detected, SARS-CoV-2 (PCR) Not detected, Coronavirus NL63 (PCR) Not detected, Human Metapneumovir PCR Not detected, Influenza A (H1) PCR Not detected, Influ A (H1N1/09) PCR Not detected, Influenza A (H3) PCR Not detected, Influenza Type A (PCR) Not detected, Influenza Type B (PCR) Not detected, M. pneumoniae (PCR) Not detected, Parainfluenza 1 (PCR) Not detected, Parainfluenza 2 (PCR) Not detected, Parainfluenza 3 (PCR) Not detected, Parainfluenza 4 (PCR) Not detected, RSV (PCR) Not detected, Entero/Rhino (PCR) Detected A 01/26/25 22:47: Troponin I < 0.01 01/27/25 01:32: Troponin I < 0.01 01/27/25 04:00: Urine Color Yellow, Urine Appearance Clear, Urine pH 6.0, Ur Specific [place] 1.015, Urine Protein Trace, Urine Glucose (UA) Negative, Urine Ketones Negative, Urine Blood 1+ A, Urine Nitrate Negative, Urine Bilirubin Negative, Urine Urobilinogen 0.2, Ur Leukocyte Esterase Negative, Urine RBC 5-10, Urine WBC 3-5, Ur Squamous Epith Cells Occasional, Urine Bacteria Trace 01/27/25 06:00: WBC 4.6 L D, RBC 3.20 L, Hgb 8.5 L D, Hct 26.8 L, MCV 83.8, MCH 26.9 L, MCHC 32.1, RDW 14.9, Plt Count 299, MPV 8.7, Neut % (Auto) 87.9 H, Lymph % (Auto) 9.3 L, [place] % (Auto) 2.2, Eos % (Auto) 0.0 L, Baso % (Auto) 0.2, Neut # (Auto) 4.1, Lymph # (Auto) 0.4 L, [place] # (Auto) 0.1, Eos # (Auto) 0.0, Baso # (Auto) 0.0, Sodium 139, Potassium 3.7, Chloride 101, Carbon Dioxide 33 H, Anion Gap 8.7, BUN 11, Creatinine 0.40 L, Estimated Creat Clear 31, Estimated GFR 160, Est GFR ( Amer) 193 D, Glucose 127 H, Calcium 8.3 L, Phosphorus 3.0, Magnesium 2.3 D I & O for Labs for Last 24 Hours: Intake & Output 01/24/25 01/25/25 01/26/25 01/27/25 23:59 23:59 23:59 23:59 Intake Total 1052 / 1052 Output Total 500 / 500 Balance 552 / 552 Weight 35.834 kg 35.834 kg Constitutional: Present no acute distress, cachectic and chronically ill appearing Head: Present atraumatic and normocephalic ENT: Present normal exam Respiratory: Present prolonged expiratory phase, rhonchi and wheezes; Absent crackles Cardiac: Present Reg Rate and Rhythm GI: Present soft and normal bowel sounds; Absent distention or tenderness Extremities: Present normal inspection and full ROM Skin: Present intact; Absent erythema Neuro: Present Grossly Intact, alert, awake, oriented x 3 and moves all extremities Assessment and Plan *Assessment and plan (1) Multifocal pneumonia: Status: Acute Category: Medical Code(s): J18.9 - Pneumonia, unspecified organism (2) Acute hypoxemic respiratory failure: Status: Acute Category: Medical Code(s): J96.01 - Acute respiratory failure with hypoxia (3) Rhinovirus infection: Status: Acute Category: Medical Code(s): B34.8 - Other viral infections of unspecified site (4) Severe protein-calorie malnutrition: Status: Acute Category: Medical Code(s): E43 - Unspecified severe protein-calorie malnutrition (5) Cachexia: Status: Acute Category: Medical Code(s): R64 - Cachexia (6) Tobacco use: Status: Acute Category: Social Hx Code(s): Z72.0 - Tobacco use (7) COPD exacerbation: Status: Acute Category: Medical Code(s): J44.1 - Chronic obstructive pulmonary disease with (acute) exacerbation Plan 64-year-old female who presented with worsening shortness of breath. Found to be positive for rhinovirus. Has multifocal pneumonia and new oxygen requirement. Continues to require inpatient management for her acute hypoxemic respiratory failure. Continue diuresis, breathing treatments, antibiotics. Problems addressed as follows: Severe sepsis Rhinoviral multifocal pneumonia COPD exacerbation - continue azithromycin 500 mg daily, ceftriaxone 1 g daily. Initiate prednisone 40 mg daily for COPD component. Scheduled DuoNebs every 6 hours. - Supplemental oxygen as needed for goal sats greater 90%. Currently on 2 L. - 21 mg patch daily for tobacco use disorder HFpEF exacerbation CAD - Elevated NT-proBNP (2360), dyspnea, and hypoxia, with possible volume overload in a patient with COPD and smoking, no chest pain or EKG changes (troponin 0.01). - Lasix 40 mg IV once. - Continue Crestor 20 mg daily, continue aspirin 81 mg daily Anxiety: Continue Klonopin 1 mg twice daily per home regimen for anxiety Anemia (Mild): Hemoglobin 10.0, hematocrit 32.0, likely chronic or related to smoking/COPD, no active bleeding noted. Repeat CBC, CMP, magnesium ordered for the morning. Kidney function normal BUN 11, creatinine 0.4. Potassium 3.7, magnesium 2.3. Will monitor with diuresis. Replace per protocol Full code Lovenox 40 mg subcu daily Regular diet
[2025-01-27] MEDS: MAGIC MOUTHWASH 300ML BOTTLE 15 ML PO (18:30)
[2025-01-27] MEDS: predniSONE 20MG TAB 20 MG PO (18:30)
[2025-01-27] MEDS: IPRATROPIUM/ALBUTEROL 3 ML NEB IH ×2 (19:34→23:06)
[2025-01-27] MEDS: ATORVASTATIN 40MG TABLET 40 MG PO (20:56)
[2025-01-27] MEDS: AZITHROMYCIN 250MG TABLET 500 MG PO (20:56)
[2025-01-27] MEDS: CEFTRIAXONE 1 GM 1 GM in 0.9 % SODIUM CHLORIDE 50 ML IV (20:57)
[2025-01-27] MEDS: clonazePAM 1MG TABLET 1 MG PO (20:57)
[2025-01-28 04:00] VITALS: BP 146/74; PULSE 93; RESP 18; TEMP 36.8; O2SAT 97; BMI 14.1
[2025-01-28] MEDS: IPRATROPIUM/ALBUTEROL 3 ML NEB IH ×2 (06:20→11:14)
[2025-01-28 06:21] VITALS: PULSE 110; PULSE 112; O2SAT 93
[2025-01-28] MEDS: FORMOTEROL IH (06:21)
[2025-01-28] MEDS: MOMETASONE IH (06:21)
[2025-01-28 06:43] LABS: Lymphocytes # 0.8 K/mm3 (0.7-4.5); Lymphocytes % 11.2 % (10-50); Mean Corpuscular HGB Conc 32.4 g/dL (31.8-35.4); Mean Corpuscular Hemoglobin 26.9 pg (27.0-31.2); Mean Corpuscular Volume 82.9 fl (81-99); Mean Platelet Volume 8.6 fl (7.4-10.4); Monocytes # 0.4 K/mm3 (0.1-1.0); Monocytes % 5.4 % (1.7-9.3); Neutrophils # 5.8 K/mm3 (1.8-7.8); Neutrophils % 82.7 % (37.0-80.0); Nucleated Red Blood Cells # 0.02 10^3/uL; Nucleated Red Blood Cells % 0.3 %; Platelet Count 367 K/mm3 (142-424); Red Cell Distribution Width 14.7 % (11.5-17.5); Red Cell Distribution Width-SD 44.8 fL; White Blood Count 7.1 K/mm3 (4.8-10.8)
[2025-01-28 06:49] LABS: Chloride 94 mmol/L (98-107)
[2025-01-28 06:50] LABS: Potassium 3.1 mmoL/L (3.5-5.1); Sodium 139 mmol/L (136-145)
[2025-01-28 06:53] LABS: Blood Urea Nitrogen 23 mg/dl (7-17); Calcium 8.4 mg/dl (8.4-10.2); Creatinine Clearance Estimated 30 mL/min (50-200); Estimated Glomerular Filt Rate 100 ml/min (>60); GFR (African American) 121 ML/MIN (>60); Glucose 121 mg/dl (74-100)
[2025-01-28 07:00] LABS: Anion Gap 16.1 mEq/L (5-15); Carbon Dioxide 32 mmol/L (22.0-30.0)
[2025-01-28 07:09] LABS: Hemoglobin 9.2 g/dL (12.2-16.2)
--- NOTE | 2025-01-28 07:37 | P.DS_ITS ---
General Admission date:: 01/26/25 Discharge date: 01/28/25 HPI HPI HPI: A 64-year-old female with a history of chronic obstructive pulmonary disease (COPD) and ongoing smoking presents to the emergency department for evaluation of dyspnea. She reports several days of increasing shortness of breath, worsening despite amoxicillin prescribed by her PCP on Friday for suspected pneumonia. She denies fever, chest pain, chills, hemoptysis, hematochezia, melena, nausea, vomiting, or diarrhea. She is not on home oxygen or a nebulizer. The history was obtained through interactive discussion with the patient, who is deemed reliable. On examination, the patient is hemodynamically unstable but normotensive (blood pressure 153/79), tachycardic (heart rate 120, sinus tachycardia on monitor), tachypneic (respiratory rate 20), with oxygen saturation 75% on room air, later requiring supplemental oxygen, and afebrile (98.4). Physical exam reveals a cachectic woman appearing older than stated age, with increased work of breathing, accessory muscle use, pursed-lip exhalations, wheezes in left lung ziegler, diminished air entry at right lung bases, and wheezes in upper lung ziegler. Diagnostic workup includes labs, VBG, blood culture, sputum culture, respiratory panel, and CT chest (PE protocol). Labs show normal WBC (7.9), anemia (hemoglobin 10.0, hematocrit 32.0), normal creatinine (0.5), GFR (123), normal electrolytes (sodium 137, potassium 4.0), elevated glucose (122), normal troponin (0.01), elevated NT-proBNP (2360), elevated procalcitonin (10.3), elevated AST (42), and normal INR (0.93). VBG shows pH 7.36, elevated pCO2 (50.0), low pO2 (27.3), and normal lactate (1.9). CT chest, independently interpreted, shows no pulmonary embolism but multifocal ground-glass infiltrates suggestive of atypical or viral pneumonia, with no focal consolidations; radiology read confirms bilateral peribronchial tree-in-bud infiltration (left worse than right) and notes pulmonary emphysema, recommending lung cancer screening. Respiratory panel later returned rhinovirus. Treatments implemented in the emergency department include supplemental oxygen (3L), continuous pulse oximetry and cardiac monitoring, (DuoNeb) nebulizers, methylprednisolonel, dose not specified, assumed and magnesium. A sepsis bolus (assumed 30 mL/kg IV normal saline), azithromycin , and ceftriaxone were administered for suspected sepsis. On reassessment, the patient?s work of breathing increased, with oxygen saturation dropping to the 70s without oxygen, requiring ongoing support with O2 saturation in the 90s percentile with reapp lied oxygen at 2 L nasal cannula.. She was accepted by hospital medicine for admission in stable condition for further evaluation and management. Hospital Course Hospital Course Hospital Course: 64-year-old female who presented with worsening shortness of breath. Found to be positive for rhinovirus. Has multifocal pneumonia and new oxygen requirement. Treated with empiric antibiotics, nebulizers, supplemental oxygen. Showing gradual improvement but still requiring oxygen. Will discharge home with oxygen and recommend close follow-up in the outpatient setting with her PCP. Hemodynamically stable. Problems addressed as follows: Severe sepsis Rhinoviral multifocal pneumonia COPD exacerbation - Presented with severe sepsis, found to be positive for rhinoviral infection. Chest imaging showing multifocal pneumonia. Initiated on empiric antibiotics with azithromycin and ceftriaxone for community-acquired pneumonia. White count normal by morning of discharge at 7.1. Remained stable on 2 L oxygen during admission. Tolerating nebulizers with improvement in breathing. Initiated on empiric steroids for COPD component of her respiratory distress. Will transition to as a myosin to complete 5 days total of antibiotics given her viral source of infection causing her COPD exacerbation and pneumonia. Complete 5 days of steroids with prednisone 40 mg daily. Continues to require oxygen at discharge. Nebulizer ordered and DuoNeb sent, encouraged to use them every 4-6 hours if short of breath. Strongly encouraged to stop smoking, patient states she will cut back but does not think she can stop. Expressed concern for fire risk with her oxygen requirement now. States she will take it off to smoke. Informed her that she was at high risk of hurting herself. She stated understanding. - Treated with nicotine patch during admission. Declined patches at discharge due to desire to continue to smoke. HFpEF exacerbation CAD - Elevated NT-proBNP (2360), dyspnea, and hypoxia, with possible volume overload in a patient with COPD and smoking, no chest pain or EKG changes (troponin 0.01). Lasix 40 mg IV once during admission. Had good response. Continue Crestor 20 mg daily and aspirin 81 mg daily. Anxiety: Continue Klonopin 1 mg twice daily per home regimen for anxiety Anemia (Mild): Hemoglobin 10.0, hematocrit 32.0, likely chronic or related to smoking/COPD, no active bleeding noted. Patient was found to be 82% on room air at rest evening before discharge. N ecessitating 2 L continuous oxygen via nasal cannula. Total time spent on discharge 32 minutes in counseling, documentation, chart review, and direct care with patient. Exam Data for Last 24 hours Vital signs and Labs for Last 24 Hours: Temp Pulse Resp BP Pulse Ox O2 Del Method O2 Flow Rate 98.3 F 110 H 18 146/74 H 93 L Nasal Cannula 2 01/28/25 04:00 01/28/25 06:21 01/28/25 04:00 01/28/25 04:00 01/28/25 06:21 01/28/25 06:45 01/28/25 06:45 Laboratory Results - last 24 hr 01/28/25 05:17: WBC 7.1 D, RBC 3.50 L, Hgb 9.2 L, Hct 29.0 L, MCV 82.9, MCH 26.9 L, MCHC 32.4, RDW 14.7, Plt Count 367, MPV 8.6, Neut % (Auto) 82.7 H, Lymph % (Auto) 11.2, [place] % (Auto) 5.4, Eos % (Auto) 0.0 L, Baso % (Auto) 0.0 L, Neut # (Auto) 5.8, Lymph # (Auto) 0.8, [place] # (Auto) 0.4, Eos # (Auto) 0.0, Baso # (Auto) 0.0, Sodium 139, Potassium 3.1 L, Chloride 94 L, Carbon Dioxide 32 H, Anion Gap 16.1 H, BUN 23 H D, Creatinine 0.60 D, Estimated Creat Clear 30, Estimated GFR 100, Est GFR ( Amer) 121 D, Glucose 121 H, Calcium 8.4 I & O for Last 24 hours: Intake & Output 01/25/25 01/26/25 01/27/25 01/28/25 23:59 23:59 23:59 23:59 Intake Total 1412 / 1906 494 / 494 Output Total 500 / 500 0 / 0 Balance 912 / 1406 494 / 494 Weight 35.834 kg 35.834 kg 33.793 kg Microbiology Reports for the Last 24 Hours: Microbiology 01/26/25 19:28 Blood Blood Culture - Preliminary NO GROWTH AFTER 24 HOURS 01/26/25 19:23 Blood Blood Culture - Preliminary NO GROWTH AFTER 24 HOURS Constitutional Constitutional: no acute distress, cachectic, chronically ill appearing and cooperative *Routine HEENT Exam Head: Present normocephalic Eye: Present EOMI and PERRL ENT: Present mucous membranes moist *Routine Neck Exam Neck: Present supple; Absent lymphadenopathy *Routine Respiratory Exam Respiratory: Present prolonged expiratory phase, wheezes and diminished air movement; Absent rhonchi or crackles *Routine Cardiovascular Exam Cardiovascular: Present RRR *Routine Abdominal Exam Abdominal: Present soft and normoactive bowel sounds; Absent tenderness *Routine Rectal Exam Patient deferred: visual exam *Routine Exam Patient deferred: external exam *Routine Extremities Exam Extremities: Absent cyanosis, clubbing or edema *Routine Skin Exam Skin: Present warm; Absent rash *Routine Neurological Exam Neurological: Present alert, oriented X3 and moving all extremities; Absent altered mental status Results Data Completed and Pending Labs on day of discharge: Labs from last 24 hours 01/28/25 05:17 WBC 7.1 D RBC 3.50 L Hgb 9.2 L Hct 29.0 L MCV 82.9 MCH 26.9 L MCHC 32.4 RDW 14.7 Plt Count 367 MPV 8.6 Neut % (Auto) 82.7 H Lymph % (Auto) 11.2 [place] % (Auto) 5.4 Eos % (Auto) 0.0 L Baso % (Auto) 0.0 L Neut # (Auto) 5.8 Lymph # (Auto) 0.8 [place] # (Auto) 0.4 Eos # (Auto) 0.0 Baso # (Auto) 0.0 Sodium 139 Potassium 3.1 L Chloride 94 L Carbon Dioxide 32 H Anion Gap 16.1 H BUN 23 H D Creatinine 0.60 D Estimated Creat Clear 30 Estimated GFR 100 Est GFR ( Amer) 121 D Glucose 121 H Calcium 8.4 Preliminary micro results at discharge 01/26/25 19:28 Blood Culture - Preliminary Blood NO GROWTH AFTER 24 HOURS 01/26/25 19:23 Blood Culture - Preliminary Blood NO GROWTH AFTER 24 HOURS DS: Diagnosis Discharge Diagnosis (1) Multifocal pneumonia: Status: Acute Code(s): J18.9 - Pneumonia, unspecified organism (2) Acute hypoxemic respiratory failure: Status: Acute Code(s): J96.01 - Acute respiratory failure with hypoxia (3) Rhinovirus infection: Status: Acute Code(s): B34.8 - Other viral infections of unspecified site (4) Severe protein-calorie malnutrition: Status: Acute Code(s): E43 - Unspecified severe protein-calorie malnutrition (5) Cachexia: Status: Acute Code(s): R64 - Cachexia (6) Tobacco use: Status: Acute Code(s): Z72.0 - Tobacco use (7) COPD exacerbation: Status: Acute Code(s): J44.1 - Chronic obstructive pulmonary disease with (acute) exacerbation Meds Home Medications and Allergies Home Medications ?Medication ?Instructions ?Recorded ?Confirmed ?Type aspirin 81 mg tablet,delayed 81 mg PO DAILY 11/24/24 01/26/25 History release clonazepam 1 mg tablet 1 mg PO BID 11/24/24 01/26/25 History benzonatate 200 mg capsule 200 mg PO TIDP PRN Cough 01/26/25 01/27/25 History megestrol 20 mg tablet 20 mg PO QID 01/26/25 01/26/25 History mometasone-formoterol HFA 100 2 puff inhalation BID 01/26/25 01/26/25 History mcg-5 mcg/actuation aerosol inhaler (Dulera) rosuvastatin 20 mg tablet 20 mg PO DAILY 01/26/25 01/26/25 History azithromycin 250 mg tablet 500 mg (2 x 250 mg) PO 2100 3 days 01/28/25 Rx #6 tabs ipratropium 0.5 mg-albuterol 3 mg 3 ml inhalation Q6HP PRN shortness 01/28/25 Rx (2.5 mg base)/3 mL nebulization of breath or wheezing 30 days #180 soln mL prednisone 20 mg tablet 40 mg (2 x 20 mg) PO DAILY 3 days 01/28/25 Rx #6 tabs New Prescriptions to Start Prescriptions: Hai Fletcher ipratropium-albuterol Hai Green prednisone Hai Green Allergies Allergy/AdvReac Type Severity Reaction Status Date / Time No Known Allergies Allergy Verified 11/24/24 18:18 Discharge Plan Disposition Patient Disposition: Home, Self-Care Condition: Fair Discharge Order Discharge Orders: Discharge Order (Routine); Ordered 01/28/25 Ordered By: Hai Green Follow up Plan Follow up with: Tiffani Mcfarland, [employer] [Primary Care Provider] - 01/31/25 9:00 am Prescriptions/Medication Reconciliation: New prednisone 20 mg Tablet 40 mg PO DAILY 3 Days Qty: 6 0RF azithromycin 250 mg Tablet 500 mg PO 2100 3 Days Qty: 6 0RF ipratropium-albuterol 0.5 mg-3 mg(2.5 mg base)/3 mL Solution For Nebulization 3 ml inhalation Q6HP PRN (Reason: shortness of breath or wheezing) 30 Days Qty: 180 0RF Continued clonazepam 1 mg tablet 1 mg PO BID Patient Comments: TAKE ONE TABLET BY MOUTH TWICE DAILY aspirin 81 mg tablet,delayed release (DR/EC) 81 mg PO DAILY Patient Comments: TAKE ONE TABLET BY MOUTH ONCE DAILY benzonatate 200 mg Capsule 200 mg PO TIDP PRN (Reason: Cough) megestrol 20 mg tablet 20 mg PO QID Patient Comments: TAKE ONE TABLET BY MOUTH FOUR TIMES DAILY rosuvastatin 20 mg tablet 20 mg PO DAILY Patient Comments: TAKE ONE TABLET BY MOUTH EVERY EVENING Dulera 100-5 mcg/actuation HFA aerosol inhaler 2 puff INHALATION BID Patient Comments: INHALE TWO PUFFS BY MOUTH TWICE DAILY Discontinued prednisone 20 mg tablet 40 mg PO DAILY Patient Comments: TAKE 2 TABLETS BY MOUTH ONCE DAILY FOR 5 DAYS amoxicillin-pot clavulanate 875-125 mg tablet 1 tab PO BID Patient Comments: TAKE 1 TABLET BY MOUTH TWICE DAILY azithromycin 250 mg tablet 250 mg PO DIRECTED Other Ambulatory Orders: Home Medical Equipment (Routine) Location: None Selected Ordered By: Hai Green Problem Reconciliation Problems Reviewed?: Yes Patient Discharge Instructions ACTIVITY: Continue current activity DIET: continue same diet Patient Instructions: DI for Pneumonia -- Adult, DI for Hypoxia, Stop Light Pneumonia, Stop Light COPD Print Language: Mauritanian Providers Primary Care Provider: Tiffani Mcfarland Admit Provider: Hai Green Attending Provider: Hai Green
[2025-01-28 08:00] VITALS: BP 125/71; PULSE 108; RESP 17; TEMP 36.6; O2SAT 94
[2025-01-28] MEDS: clonazePAM 1MG TABLET 1 MG PO (09:51)
[2025-01-28] MEDS: ENOXAPARIN 40MG/0.4ML SYRINGE 40 MG SUBCUT (09:52)
[2025-01-28] MEDS: ASPIRIN EC 81MG TABLET 81 MG PO (09:52)
[2025-01-28] MEDS: predniSONE 20MG TAB 40 MG PO (09:52)
[2025-01-28 12:00] VITALS: BP 120/69; PULSE 105; RESP 17; TEMP 36.6; O2SAT 94
--- NOTE | 2025-01-28 13:29 | CARE MANAGER ---
Patient required O2 at home and chose [facility]. Information sent.
--- NOTE | 2025-02-01 12:57 | SW/DCPLANNER ---
Phoned patient x2. Left name and call back number each time. Natalie Pérez
== END 2025-01-28 13:20 | disposition home or self-care (01) | DRG 190 ==
LOC: ER 20:18 → 2ND 21:06
PROVIDERS: Nurse Practitioner Family; Physician Assistant; Admitting Provider Internal Medicine Adolescent Medicine; Emergency Provider Student in an Organized Health Care Education/Training Program; PCP Nurse Practitioner; Visit Provider Internal Medicine Adolescent Medicine
DX: J44.1 Chronic obstructive pulmonary disease with (acute) exacerbation (principal); A41.9 Sepsis, unspecified organism; I50.33 Acute on chronic diastolic (congestive) heart failure; J12.89 Other viral pneumonia; F41.9 Anxiety disorder, unspecified; J43.8 Other emphysema; I25.10 Atherosclerotic heart disease of native coronary artery without angina pectoris; D63.8 Anemia in other chronic diseases classified elsewhere; R79.82 Elevated C-reactive protein (CRP); R74.01 Elevation of levels of liver transaminase levels; R00.0 Tachycardia, unspecified; Z79.82 Long term (current) use of aspirin; Z81.1 Family history of alcohol abuse and dependence; Z80.9 Family history of malignant neoplasm, unspecified; Z82.49 Family history of ischemic heart disease and other diseases of the circulatory system
CPT/HCPCS: 36415; 71275; 80048; 80053; 81001; 82803; 83735; 83880; 84100; 84145; 84484; 85025; 85610; 87040; 87633; 94640; 94761; 99291; J0456; J0696; J1650; J1938; J2919; J3475; J7050; J7620; Q9967

== ENCOUNTER 2025-02-05 09:12 | Emergency (ER) | payer MEDICARE, SELFPAY ==
[2025-02-05] VITALS (7 sets, daily range): BP systolic 105–129; BP diastolic 57–97; PULSE 96–118; RESP 20–29; TEMP 36.6–36.7; O2SAT 95–100; BMI 13.2
--- NOTE | 2025-02-05 09:51 | XR_ITS ---
PROCEDURE INFORMATION: Exam: XR Chest Exam date and time: 02/05/2025 9:52 AM Age: 64 years old Clinical indication: Cough; Additional info: Persistent cough TECHNIQUE: Imaging protocol: Radiologic exam of the chest. Views: 2 views. COMPARISON: CT ANGIO CHEST PE PROTOCOL 01/26/2025 8:05 PM FINDINGS: Lungs: Emphysema. No focal consolidation. Pleural spaces: Biapical pleural thickening. Heart/Mediastinum: Unremarkable. No cardiomegaly. Bones/joints: Unremarkable. IMPRESSION: Emphysema. No focal consolidation.
--- NOTE | 2025-02-05 09:55 | ECG_ITS ---
APPROVED REPORT Exam: Resting ECG HR:109 bpm ECG Measurements Heart Rate 109 AXES MA 121 P 86 QRSd 80 QRS 254 QT 334 T 89 QTc 398 Conclusion SINUS TACHYCARDIA POSSIBLE RIGHT ATRIAL ENLARGEMENT [0.25mV P-WAVE] POSSIBLE LEFT ATRIAL ENLARGEMENT [-0.1mV P-WAVE IN V1/V2] RIGHT AXIS DEVIATION [QRS AXIS > 100] S1-S2-S3 PATTERN, CONSISTENT WITH PULMONARY DISEASE, RVH, OR NORMAL VARIANT ABNORMAL ECG UNCONFIRMED REPORT Electronically signed by : Hai Rooney, 02/05/2025 15:40:21
[2025-02-05 09:57] LABS: Basophils % 0.1 % (0.1-2.0); Eosinophils # 0.1 Kmm3 (0.0-0.4); Eosinophils % 0.8 % (0.1-12.0); Hematocrit 38.4 % (37.0-47.0); Hemoglobin 11.9 g/dL (12.2-16.2); Lymphocytes # 2.6 K/mm3 (0.7-4.5); Lymphocytes % 29.8 % (10-50); Mean Corpuscular Hemoglobin 25.8 pg (27.0-31.2); Mean Corpuscular Volume 83.3 fl (81-99); Mean Platelet Volume 8.1 fl (7.4-10.4); Monocytes # 0.7 K/mm3 (0.1-1.0); Monocytes % 7.9 % (1.7-9.3); Neutrophils # 5.4 K/mm3 (1.8-7.8); Neutrophils % 61.1 % (37.0-80.0); Nucleated Red Blood Cells # 0 10^3/uL; Nucleated Red Blood Cells % 0 %; Platelet Count 506 K/mm3 (142-424); Red Blood Count 4.61 M/mm3 (4.20-5.40); Red Cell Distribution Width 14.8 % (11.5-17.5); Red Cell Distribution Width-SD 44.4 fL; White Blood Count 8.9 K/mm3 (4.8-10.8)
[2025-02-05] MEDS: 0.9 % SODIUM CHLORIDE 1000ML 1,000 ML 999 ML IV (10:00)
[2025-02-05 10:03] LABS: Chloride 100 mmol/L (98-107); Potassium 3.5 mmoL/L (3.5-5.1); Sodium 136 mmol/L (136-145)
[2025-02-05 10:06] LABS: Alanine Aminotransferase 55 U/L (12-78); Albumin/Globulin Ratio 1.3 (1.1-1.8); Alkaline Phosphatase 90 U/L (38-126); Anion Gap 9.5 mEq/L (5-15); Aspartate Amino Transferase 50 U/L (14-36); Bilirubin,Total 0.6 mg/dl (0.2-1.3); Blood Urea Nitrogen 16 mg/dl (7-17); Carbon Dioxide 30 mmol/L (22.0-30.0); Creatinine Clearance Estimated 28 mL/min (50-200); Estimated Glomerular Filt Rate 100 ml/min (>60); GFR (African American) 121 ML/MIN (>60)
[2025-02-05 10:07] LABS: Calcium 9.2 mg/dl (8.4-10.2); Glucose 101 mg/dl (74-100)
--- NOTE | 2025-02-05 10:09 | ED_ITS ---
Discharge Plan Disposition Patient Disposition: Home, Self-Care Prescriptions Prescriptions: No Action clonazepam 1 mg tablet 1 mg PO BID Patient Comments: TAKE ONE TABLET BY MOUTH TWICE DAILY aspirin 81 mg tablet,delayed release (DR/EC) 81 mg PO DAILY Patient Comments: TAKE ONE TABLET BY MOUTH ONCE DAILY benzonatate 200 mg Capsule 200 mg PO TIDP PRN (Reason: Cough) megestrol 20 mg tablet 20 mg PO QID Patient Comments: TAKE ONE TABLET BY MOUTH FOUR TIMES DAILY rosuvastatin 20 mg tablet 20 mg PO DAILY Patient Comments: TAKE ONE TABLET BY MOUTH EVERY EVENING Dulera 100-5 mcg/actuation HFA aerosol inhaler 2 puff INHALATION BID Patient Comments: INHALE TWO PUFFS BY MOUTH TWICE DAILY prednisone 20 mg Tablet 40 mg PO DAILY 3 Days Qty: 6 0RF azithromycin 250 mg Tablet 500 mg PO 2100 3 Days Qty: 6 0RF ipratropium-albuterol 0.5 mg-3 mg(2.5 mg base)/3 mL Solution For Nebulization 3 ml inhalation Q6HP PRN (Reason: shortness of breath or wheezing) 30 Days Qty: 180 0RF Referrals Follow up/Referrals: ProviderCharlee, [Referring] - See instructions Geoff Butts MD [Physician] - See instructions Activity Restrictions/Add. Instructions Additional Instructions/Restrictions: No evidence of recurrent or worsening pneumonia. You were dehydrated but no significant electrolyte abnormalities noted today. Please maintain adequate hydration at home. Also specifically no evidence of any worsening of your chronic respiratory conditions. I recommend that you follow-up with our [employer] and a referral has been made. Clinical Impressions Clinical Impression: Chronic cough, Cachexia, COPD (chronic obstructive pulmonary disease), Acute dehydration Print Language Print Language: Egyptian Discharge ED Provider: Garrett Rooney General Adult HPI General Chief complaint: Upper Respiratory Infection Stated complaint: pneumonia Time Seen by Provider: 02/05/25 09:35 Mode of Arrival: Ambulatory Source of Information: Patient Description of Symptoms (Recalled from ER Triage Doc. by RN): pt presents to ED from pcp office for further eval. pt reports that she has had a productive cough ongoing for 2 weeks. pt states she has double pneumonia. pt was seen at [facility]. pt states that she is supposed to wear oxygen, 2L NC, at all times, but does not. History of Present Illness HPI narrative: Patient is a 64-year-old female presenting today being sent from her primary care physician due to ongoing respiratory symptoms. Patient was recently in the hospital and diagnosed with groundglass opacities concerning for an atypical infection no dense focal consolidation were noted on her CT scan at that time and she was sent home on azithromycin and treatment for a COPD exacerbation. Patient is chronically malnourished and cachectic and has lost about 7 pounds over the last several weeks. Has had decreased p.o. intake as she states that it hurts to eat. She states that since she was discharged from the hospital she has not had any worsening cough wheezing or shortness of breath. She has had persistent cough and persistent shortness of breath which is unchanged. Her primary care doctor was concerned about her given her ongoing symptoms and sent her to the emergency department for an x-ray and labs. Patient does states she has had decreased p.o. intake however. Related Data Home Medications ?Medication ?Instructions ?Recorded ?Confirmed aspirin 81 mg tablet,delayed 81 mg PO DAILY 11/24/24 01/26/25 release clonazepam 1 mg tablet 1 mg PO BID 11/24/24 01/26/25 benzonatate 200 mg capsule 200 mg PO TIDP PRN Cough 01/26/25 01/27/25 megestrol 20 mg tablet 20 mg PO QID 01/26/25 01/26/25 mometasone-formoterol HFA 100 2 puff inhalation BID 01/26/25 01/26/25 mcg-5 mcg/actuation aerosol inhaler (Dulera) rosuvastatin 20 mg tablet 20 mg PO DAILY 01/26/25 01/26/25 Previous Rx's ?Medication ?Instructions ?Recorded azithromycin 250 mg tablet 500 mg (2 x 250 mg) PO 2100 3 days 01/28/25 #6 tabs ipratropium 0.5 mg-albuterol 3 mg 3 ml inhalation Q6HP PRN shortness 01/28/25 (2.5 mg base)/3 mL nebulization of breath or wheezing 30 days #180 soln mL prednisone 20 mg tablet 40 mg (2 x 20 mg) PO DAILY 3 days 01/28/25 #6 tabs Allergies Allergy/AdvReac Type Severity Reaction Status Date / Time No Known Allergies Allergy Verified 02/05/25 09:45 [facility] Disclaimer: The information contained in this section may have been updated after the patient was seen, as this information can be updated by other users. Medical History Nausea Edema of both lower extremities Crescendo angina Family history of ischemic heart disease Tobacco use Tachycardia Abnormal electrocardiogram [ECG] [EKG] High cholesterol COPD (chronic obstructive pulmonary disease) Hypertension Surgical History Hx of hysterectomy Family History Grandmother Cancer Other Alcoholism Social History Smoking Status: Current every day smoker tobacco type: cigarettes packs per day: 1 alcohol intake: never current occupational status: other Travel in the last 8 weeks: None Have you lived/traveled outside [place] in past 30 days?: No Contact w/someone who lives/traveled outside US past 30 days?: No Exposure to someone with infectious disease in past 14 days?: No Do you have a fever (greater than 100.4 F or 38 C)?: No Have you tested positive for COVID-19: No Exposed to someone with COVID-19 in past 14 days?: No Do you have a sore throat?: No Do you have a cough?: No Do you have any weakness?: Yes Do you have any diarrhea?: No Are you experiencing any unusual bleeding?: No Do you have any muscle aches/pain?: No Do you have any abdominal pain?: No Are you experiencing loss of taste or smell?: No Other Medical History Have you received the Flu Vaccine for this season: No Have you received the Pneumonia Vaccine: No ROS Obtained: Yes All systems reviewed & no additional complaints except as documented Physical Exam General General appearance: cachectic Respiratory Respiratory exam: Present normal lung sounds bilaterally; Absent respiratory distress, wheezes, stridor, accessory muscle use or prolonged expiratory phase Cardiovascular Cardiovascular exam: Present tachycardia (Heart rate 120 regular) Neurological Exam Neurological exam: Present alert and oriented X3 Medical Decision Making Medical Records Screening: Per USPSTF and CDC recommendations, given the prevalence of disease in our region, it is our hospital?s policy to screen for HIV and viral Hepatitis for all patients aged 18 and over and those with ongoing risk factors. Denny Inquiry Pt receiving controlled substance: No Vital Signs: 02/05/25 09:36 02/05/25 09:41 02/05/25 10:00 Temperature 97.9 F Temperature Source Oral Pulse Rate 118 H 110 H Pulse Rate [Left Radial] 118 H Respiratory Rate 20 Blood Pressure 122/78 129/97 H Blood Pressure [Right Arm] 122/78 Blood Pressure Mean Blood Pressure Mean [Right Arm] 92 Blood Pressure Source [Right Arm] Automatic Cuff Blood Pressure Position [Right Arm] Supine 02 Sat by Pulse Oximetry 98 97 95 Oxygen Delivery Method Room Air Room Air 02/05/25 10:30 02/05/25 10:32 02/05/25 11:00 Temperature Temperature Source Pulse Rate 103 H 96 H 98 H Pulse Rate [Left Radial] Respiratory Rate 29 H 21 Blood Pressure 105/57 L 109/67 L Blood Pressure [Right Arm] Blood Pressure Mean 79 Blood Pressure Mean [Right Arm] Blood Pressure Source [Right Arm] Blood Pressure Position [Right Arm] 02 Sat by Pulse Oximetry 97 100 Oxygen Delivery Method Room Air Lab Data Lab results reviewed: Yes I reviewed the patient's lab results. Lab Results 02/05/25 09:51: WBC 8.9, RBC 4.61, Hgb 11.9 L, Hct 38.4, MCV 83.3, MCH 25.8 L, M CHC 31.0 L, RDW 14.8, Plt Count 506 H, MPV 8.1, Neut % (Auto) 61.1, Lymph % (Auto) 29.8, [place] % (Auto) 7.9, Eos % (Auto) 0.8, Baso % (Auto) 0.1, Neut # (Auto) 5.4, Lymph # (Auto) 2.6, [place] # (Auto) 0.7, Eos # (Auto) 0.1, Baso # (Auto) 0.0, Sodium 136, Potassium 3.5, Chloride 100, Carbon Dioxide 30, Anion Gap 9.5, BUN 16, Creatinine 0.60, Estimated Creat Clear 28, Estimated GFR 100, Est GFR ( Amer) 121, Glucose 101 H, Calcium 9.2, Total Bilirubin 0.6, AST 50 H, ALT 55, Alkaline Phosphatase 90, Total Protein 7.0, Albumin 4.0, Globulin 3.0, Albumin/Globulin Ratio 1.3 02/05/25 09:51 02/05/25 09:51 Orders (Tests/Meds): ED MEDICATIONS Discontinued Medications Generic Name Dose Route Start Last Admin Trade Name Jimmy PRN Reason Stop Dose Admin Sodium Chloride 1,000 mls @ 999 mls/hr 02/05/25 10:00 02/05/25 10:00 Sod Chlor 0.9% 1000ml Bag IV 02/05/25 11:00 999 mls/hr .Q1H1M GABRIELE Administration ORDERS Category Date Time Status Chest XR 2 view (NOT portable) [XR chest 2V] Stat Exams 02/05/25 09:51 Completed CBC w/Auto Diff [Complete Blood Count Auto Diff] Stat Lab 02/05/25 09:51 Completed CMP [Comprehensive Metabolic Panel] Stat Lab 02/05/25 09:51 Completed ECG Data Tracing #1: I reviewed this ECG and interpreted as documented below: Ventricular rate 109 sinus tachycardia there is right axis deviation no acute ischemic changes noted there is right atrial and left atrial enlargement Medical Decision Narrative: Chronically appearing 64-year-old female with above history and physical. I personally reviewed her recent CT scan which was not significant from a parenchymal lung disease standpoint did have some groundglass opacities which were presumed to be possible atypical infection which is why she was continued on azithromycin. Patient had no focal or dense consolidations noted. Chest x- ray today was performed which I personally interpreted which shows no acute consolidation certainly not any worse than it was in the past. It is hyperexpanded and consistent with COPD. Patient has persistent cough which is chronic no worsening shortness of breath or wheezing this is not consistent with a COPD exacerbation or an acute exacerbation of her recent illness. Mildly significant concern from an emergency standpoint as her hydration status that she is at baseline very cachectic and has recently lost weight. Therefore we will get basic labs administer IV fluids and reassess. Reassessment 1115 patient feels much better IV fluids have been administered and her heart rate is down into the 90s now. As above chest x-ray was unremarkable this is consistent with radiology read as well. Labs not significantly abnormal from a dehydration standpoint. She has been advised to make sure she is trying to intake adequate fluid and caloric intake at home. I have given her referral to our [employer] she was discharged in stable condition. Critical Care Critical Care Time Critical Care Time: No
--- NOTE | 2025-02-05 10:36 | PC.NURSE ---
JG put o2 on her, 2 L
== END 2025-02-05 11:24 | disposition home or self-care (01) ==
PROVIDERS: Emergency Provider Student in an Organized Health Care Education/Training Program; PCP Nurse Practitioner
DX: J18.9 Pneumonia, unspecified organism (principal); E86.0 Dehydration; R00.0 Tachycardia, unspecified; J44.0 Chronic obstructive pulmonary disease with (acute) lower respiratory infection; R64 Cachexia
CPT/HCPCS: 71046; 80053; 85025; 93005; 96360; 99284; J7030

== ENCOUNTER 2025-05-12 11:37 | Emergency (ER) | payer MEDICARE, SELFPAY ==
[2025-05-12 11:44] VITALS: BP 125/74; PULSE 114; RESP 16; TEMP 36.6; O2SAT 93; BMI 11.7
[2025-05-12 11:47] VITALS: BP 109/64; PULSE 102; RESP 20; TEMP 36.7; O2SAT 96
--- OUTSIDE RECORDS SUMMARY | 2025-05-12 12:07 | XMS_ITS | Encounter Summary ---
Author Organization [facility] Address [address] [place] [address] Care Team Providers Care Planning Management It Specialist Name Role Phone Tiffani Mcfarland APRN Primary Care Provider [phone] Encounter Details Date Type Department Care Team (Late st Contact Info) Description 02/24/2023 Ophth Exam [facility] [address] [place] [phone] Luca Fritz MD [address] [place] [address] [phone] Social History Tobacco Use Types Packs/Day Years Used Date Smoking Tobacco: Never Assessed Comments Unknown Sex and Gender Information Value Date Recorded Sex Assigned at Female 08/08/2023 11:51 AM EDT Legal Sex Female 7:42 PM EDT Gender Identity Female 08/08/2023 11:51 AM EDT Sexual Orientation Not on file documented as of this encounter Functional Status * Calculated C-SSRS Risk Score (Lifetime/Recent) Answer Date of Assessment Author No Risk Indicated 02/24/2023 12:27 AM EDT Terra Cueva RN * Question Answer Date of Assessment Author 1. Wish to be (Past 1 Month) No 023 12:27 AM EDT Terra Cueva RN 2. Non-Specific Active Suici will Thoughts (Past 1 Month) No 02/24/2023 12:27 AM EDT Kathi Cueva RN 6. Suicidal Behavior (Lifetime) No 05/15/202 3 12:27 AM EDT Terra Cueva, RN documented as of this encounter Plan of Treatment Not on file documented as of this encounter Visit Diagnoses Not on filedocumented in this encounter Care Teams Planning Management It Specialist Relationship Specialty Start Date End Date Tiffani Mcfarland APRN [address] [place] [address] PCP - General 02/24/23 documented as of this encounter
--- OUTSIDE RECORDS SUMMARY | 2025-05-12 12:07 | XMS_ITS | Clinical Summary ---
Author Organization [facility] Address [address] [place] [address] Care Team Providers Care Singing Teacher Name Role Phone Tiffani Mcfarland MARYJO Primary Care Provider [phone] Allergies Active Allergy Reactions Criticality Noted Date Comments Codeine Other - please docum ent in the comment field Low 02/24/2023 Breaks out in a sweat Social History Tobacco Use Types Packs/Day Years Used Date Smoking Tobacco: Never Assessed Tobacco Cessation:Counseling Given: Not Answered Comments Unknown Sex and Gender Information Value Date Recorded Sex Assigned at Female 08/08/2023 11:51 AM EDT Legal Sex Female 7:42 PM EDT Gender Identity Female 08/08/2023 11:51 AM EDT Sexual Orientation Not on file Last Filed Vital Signs Vital Sign Reading Time Taken Comments Blood Pressure 145/89 02/24/2023 12:11 AM EDT Pulse 92 02/24/2023 12:11 AM EDT Temperature 36.3 C (97.4 F) 02/24/2023 12:11 AM EDT Respiratory Rate 20 02/24/2023 12:11 AM EDT Oxygen Saturation 99% 02/24/2023 12:11 AM EDT Inhaled Oxygen Concentration - - Weight - - Height - - Body Mass Index - - Plan of Treatment Health Maintenance Due Date Last Done Comments [facility]-Bone Density Scan 1958 [facility]-Depression Screening 1958 [facility]-Hepatitis C Screening 1958 [facility]-Infant/Child/Adol SDOH Screenings 1958 [facility]- SDOH Screenings 1976 [facility]-Adult SDOH Screenings 1976 [facility]Y-DTaP,Tdap,and Td Vaccine s (1 - Tdap) 1977 CT Colonography 2003 Colonoscopy 2003 FIT-DNA 2003 FIT 2003 FOBT 2003 Sigmoidoscopy 2003 [facility]-Colorectal Cancer Screening 2003 [facility]-Breast Cancer Screening 2008 [facility]Y-Pneumococcal Vaccine: 50 + Years (1 of 1 - PCV) 2008 [facility]Y-Zoster Vaccines (1 of 2) 2008 [id number] Vaccine (2 - 20 24-25 season) 2024 05/24/2021 [facility]Y-Influenza Vaccine (#1) 2025 [facility]Y-RSV Vaccine: 60+ Years o r (1 - 1-dose 75+ series) 2033 HPV Vaccines Aged Out No longer eligi ble based on patient's age to complete this topic [facility]Y-HIB Vaccines Aged Out No longer e ligible based on patient's age to complete this topic [facility]-Hepatitis A Vaccines Aged Out No longer eligible based on patient's age to complete this topic UKY-IPV Vaccines Aged Out No longer e ligible based on patient's age to complete this topic [facility]Y-Rotavirus Vaccines Aged Out No lo nger eligible based on patient's age to complete this topic Insurance [employer] Care Teams Singing Teacher Relationship Specialty Start Date End Date Tiffani Mcfarland APRN [address] [place] [address] PCP - General 02/24/23
--- OUTSIDE RECORDS SUMMARY | 2025-05-12 12:07 | XMS_ITS | Encounter Summary ---
Author Organization [facility] Address [address] [place] [address] Care Team Providers Care Breaker Oiler Name Role Phone Tiffani Mcfarland APRN Primary Care Provider [phone] Encounter Details Date Type Department Care Team (Late st Contact Info) Description 08/08/2023 Community [facility] [address] [place] [address] Tiffani Mcfarland APRN [address] [place] [address] Leukopenia, unspecified type (Primary Dx) Social History Tobacco Use Types Packs/Day Years Used Date Smoking Tobacco: Never Assessed Comments Unknown Sex and Gender Information Value Date Recorded Sex Assigned at Female 08/08/2023 11:51 AM EDT Legal Sex Female 7:42 PM EDT Gender Identity Female 08/08/2023 11:51 AM EDT Sexual Orientation Not on file documented as of this encounter Plan of Treatment Not on file documented as of this encounter Visit Diagnoses Diagnosis Leukopenia, unspecified type- Primary documented in this encounter Care Teams Breaker Oiler Relationship Specialty Start Date End Date Tiffani Mcfarland APRN [address] [place] [phone] PCP - General 02/24/23 documented as of this encounter
--- NOTE | 2025-05-12 12:09 | XR_ITS ---
FINAL REPORT CLINICAL HISTORY: fall, left arm pain FINDINGS: LEFT HUMERUS Two views were obtained. There is a comminuted humeral head and neck fracture without significant displacement. The is no dislocation. IMPRESSION: Fracture as above. Reviewed, Interpreted and Dictated by Angela Nieto MD Transcribed by Yessy Redman Authenticated and [facility]
--- NOTE | 2025-05-12 12:09 | XR_ITS ---
FINAL REPORT CLINICAL HISTORY: Fall, left humerus pain COMPARISON: 01/26/2025 FINDINGS: LEFT SHOULDER Four views were obtained. There is a comminuted humeral head and neck fracture without significant displacement. There is no dislocation. The AC joint is intact. There is nodular pleural thickening at the left apex, unchanged. IMPRESSION: Fracture as above. Reviewed, Interpreted and Dictated by Angela Nieto MD Transcribed by Yessy Redman Authenticated and [facility]
--- NOTE | 2025-05-12 12:10 | ED_ITS ---
Discharge Plan Disposition Patient Disposition: Home, Self-Care Prescriptions Prescriptions: New oxycodone 5 mg tablet 5 mg PO Q6H PRN (Reason: pain) Qty: 12 0RF methocarbamol 500 mg tablet 500 mg PO Q8H PRN (Reason: muscle spasm) Qty: 30 0RF No Action albuterol sulfate 90 mcg/actuation HFA aerosol inhaler 2 puff inhalation Q4H Qty: 8.5 3RF nifedipine 30 mg tablet extended release 30 mg PO DAILY Qty: 30 2RF prednisone 20 mg tablet See Rx Instructions PO DAILY Qty: 18 0RF Rx Instructions: orally daily; Days 1-3 take 3 tabs (60mg), Days 4-6 take 2 tabs (40mg), Days 7-9 take 1 tab (20mg) meloxicam 7.5 mg tablet 7.5 mg PO BID Qty: 60 2RF ondansetron 4 mg tablet,disintegrating 4 - 8 mg PO BID PRN (Reason: nausea and vomiting) Qty: 20 2RF megestrol 20 mg tablet 20 mg PO QID Patient Comments: TAKE ONE TABLET BY MOUTH FOUR TIMES DAILY Dulera 100-5 mcg/actuation HFA aerosol inhaler 2 puff INHALATION BID Patient Comments: INHALE TWO PUFFS BY MOUTH TWICE DAILY ipratropium-albuterol 0.5 mg-3 mg(2.5 mg base)/3 mL Solution For Nebulization 3 ml inhalation Q6HP PRN (Reason: shortness of breath or wheezing) 30 Days Qty: 180 0RF Referrals Follow up/Referrals: Tunde Hanna DO [Staff Physician, Orthopedics] - See instructions Provider,Referral, MD [Primary Care Provider, Medical] - See instructions Activity Restrictions/Add. Instructions Additional Instructions/Restrictions: You were found to have a fracture in your humerus, which is the bone in your left upper arm. Wear the cuff and collar at all times until you are able to follow-up with Dr. Hanna with orthopedic surgery team. A referral has been placed. I encourage you to call their office today or tomorrow to schedule an appointment. You can take Tylenol and ibuprofen every 6 hours as needed to help with symptoms. You are also being prescribed oxycodone as well as Robaxin to help with your symptoms. Take these as prescribed. If you develop any new or worsening symptoms, or if you become concerned for your health for any reason, return to the emergency department for evaluation Clinical Impressions Clinical Impression: Closed traumatic displaced fracture of proximal end of left humerus Print Language Print Language: Emirati Discharge ED Provider: [facility] General Adult HPI General Chief complaint: Fall Stated complaint: left arm pain ,fell 05/11/25 Time Seen by Provider: 05/12/25 12:02 Mode of Arrival: Ambulatory Source of Information: Patient Description of Symptoms (Recalled from ER Triage Doc. by RN): Patient states she fell on 05/11/25 when she missed a step and landed on her left arm- patient complaining of pain and bruising to left upper arm. Patient took an Ibuprofen la st night but nothing today. History of Present Illness HPI narrative: Glenda Hutton is a 64F with a history of COPD who presents to the emergency department for left arm pain after a fall yesterday. Patient states that yesterday, she was walking on [address] and missed stepped when trying to go up the curb, causing her to fall. She states that her left arm ended up behind her. She denies any head trauma or loss of consciousness. Since then, she has had pain in her left humerus area with bruising this area. She denies any num bness or tingling but states that it is extremely painful to move that arm at all and she has had difficulty even pulling her pants up. She has no other complaints or concerns at this time. She states that she did take an ibuprofen without significant relief. She is not on any blood thinning medications. Related Data Home Medications ?Medication ?Instructions ?Recorded ?Confirmed megestrol 20 mg tablet 20 mg PO QID 01/26/25 mometasone-formoterol HFA 100 2 puff inhalation BID 03/25/25 mcg-5 mcg/actuation aerosol inhaler (Dulera) Previous Rx's ?Medication ?Instructions ?Recorded ipratropium 0.5 mg-albuterol 3 mg 3 ml inhalation Q6HP PRN shortness 01/28/25 (2.5 mg base)/3 mL nebulization of breath or wheezing 30 days #180 soln mL albuterol sulfate 90 mcg/actuation 2 puff inhalation Q 4H #8.5 grams 02/23/25 aerosol inhaler nifedipine 30 mg tablet,extended 30 mg PO DAILY #30 ta bs 02/23/25 release prednisone 20 mg tablet See Rx Instructions PO DAILY #18 03/25/25 tabs meloxicam 7.5 mg tablet 7.5 mg PO BID #60 tabs 04/07 methocarbamol 500 mg tablet 500 mg PO Q8H PRN muscle s pasm #30 05/12/25 tabs ondansetron 4 mg disintegrating 4 - 8 mg (1 - 2 x 4 mg ) PO BID PRN 05/12/25 tablet nausea and vomiting #20 tabs oxycodone 5 mg tablet 5 mg PO Q6H PRN pain #12 tab s 05/12/25 Allergies Allergy/AdvReac Type Severity Reaction Status Date / Time Influenza Virus Vaccines Allergy Verified 03/25/25 12:59 sertraline (From Zoloft) Allergy Nervous Verified 03/25/25 12:59 codeine AdvReac Verified 03/25/25 12:59 PFSH PFSH Disclaimer: The information contained in this section may have been updated after the patient was seen, as this information can be updated by other users. Medical History Nausea Edema of both lower extremities Crescendo angina Family history of ischemic heart disease Mother Tobacco use Tachycardia Abnormal electrocardiogram [ECG] [EKG] High cholesterol COPD (chronic obstructive pulmonary disease) Hypertension Surgical History Hx of hysterectomy Family History Grandmother Cancer Other Alcoholism Social History Smoking Status: Current every day smoker tobacco type: cigarettes packs per day: 1 alcohol intake: never current occupational status: other Travel in the last 8 weeks?: None Have you lived/traveled outside US in past 30 days?: No Contact w/someone who lives/traveled outside US past 30 days?: No Exposure to someone with infectious disease in past 14 days?: No Do you have a fever (greater than 100.4 F or 38 C)?: No Have you tested positive for COVID-19?: No Exposed to someone with COVID-19 in past 14 days?: No Do you have a sore throat?: No Do you have a cough?: No Do you have any weakness?: No Do you have any diarrhea?: No Are you experiencing any unusual bleeding?: No Do you have any muscle aches/pain?: No Do you have any abdominal pain?: No Are you experiencing loss of taste or smell?: No Other Medical History Have you received the Flu Vaccine for this season: No Have you received the Pneumonia Vaccine: No ROS Obtained: Yes Systems reviewed as appropriate & no additional complaints except as documented Physical Exam General General appearance: alert and in no apparent distress Comment: Appears uncomfortable Head Head exam: atraumatic Eye Eye exam: Present normal appearance ENT ENT exam: Present normal external ear exam Neck Neck exam: Present full ROM Chest Chest inspection: Present symmetric chest wall rise Respiratory Respiratory exam: Present normal lung sounds bilaterally; Absent respiratory distress, wheezes or stridor Cardiovascular Cardiovascular exam: Present regular rate and normal rhythm Abdominal Exam Abdominal exam: Present soft; Absent tenderness or guarding Extremities Exam Extremities exam: Present normal inspection and other (Left upper extremity: Tenderness from the proximal humerus to the mid humeral shaft. No tenderness over the elbow. Neurovascularly intact throughout the upper extremity. 5 out of 5 residential door unit installer strength. 5 out of 5 sensation throughout the hand. 2+ radial pulse. No sensory deficits over the shoulder o) Back Exam Back exam: Present normal inspection Neurological Exam Neurological exam: Present alert and oriented X3 Psychiatric Psychiatric exam: Present normal affect Skin Skin exam: Present warm and dry Medical Decision Making Medical Records Screening: Per USPSTF and CDC recommendations, given the prevalence of disease in our region, it is our hospital?s policy to screen for HIV and viral Hepatitis for all patients aged 18 and over and those with ongoing risk factors. Denny Inquiry Pt receiving controlled substance: Yes Denny was queried for this patient: Yes Risks and benefits of using a controlled substance: were discussed with pt by me Vital Signs: 05/12/25 11:44 05/12/25 11:47 05/12/25 12:09 Temperature 97.8 F 98.1 F Temperature Source Oral Pulse Rate 102 H Pulse Rate [Right Brachial] 114 H Respiratory Rate 16 20 Blood Pressure 109/64 L Blood Pressure [Right Arm] 125/74 Blood Pressure Mean [Right Arm] 91 02 Sat by Pulse Oximetry 93 L 96 Oxygen Delivery Method Room Air Room Air Room Air Orders (Tests/Meds): ED MEDICATIONS Discontinued Medications Generic Name Dose Route Start Last Admin Trade Name Jimmy PRN Reason Stop Dose Admin Oxycodone HCl 5 mg 05/12/25 12:10 05/12/25 12:16 Oxycodone 5mg Immediate Release Tablet PO 05/12/25 12:11 5 mg ONCE ONE Administration ORDERS Category Date Time Status Humerus XR left [XR humerus LT] Stat Exams 05/12/25 12:09 Completed Shoulder XR left minimum 2 views [XR shoulder LT min 2V Exams 05/12/25 12:09 Completed ] Stat Medical Decision Narrative: Glenda Hutton is a 64F with a history of COPD who presents to the emergency department for left arm pain after a fall yesterday. Patient states that yesterday, she was walking on [address] and missed stepped when trying to go up the curb, causing her to fall. She states that her left arm ended up behind her. She denies any head trauma or loss of consciousness. Since then, she has had pain in her left humerus area with bruising this area. She denies any numbness or tingling but states that it is extremely painful to move that arm at all and she has had difficulty even pulling her pants up. She has no other complaints or concerns at this time. She states that she did take an ibuprofen without significant relief. She is not on any blood thinning medications. On arrival, she is normotensive, tachycardic but in no acute respiratory distress. Oxygen saturation 93% and above. Afebrile. Physical exam, stated above, revealed an uncomfortable. Female in no distress. She has bruising over her left mid humerus. Limited range of motion at the shoulder secondary to pain. Tenderness over the proximal and mid humerus. No tenderness at the elbow, forearm, wrist or hand. 2+ radial pulses. Neurovascular intact distally with 5 out of 5 residential door unit installer strength and sensation. No tenderness over the C-spine and no evidence of head trauma. Differential diagnosis includes, but is not limited to: Midshaft humerus fracture, proximal humerus fracture, shoulder dislocation, soft tissue injury, among others. The most morbid conditions were considered and workup was based on these. Workup in the emergency room included: Left shoulder x-ray, left humerus x-ray, she was treated with 5 mg oxycodone for pain. Lab work was considered, however given the mechanical nature of the patient's fall and physical exam, these are not indicated at this time as it will not change ED management. Her tachycardia is best explained by her pain. X-ray imaging was interpreted by me personally prior to official radiology read. She has a mildly displaced proximal left humerus fracture. No shoulder dislocation. See final radiology report for details. Given these findings, will place patient in a cuff and collar and give referral to orthopedic surgery, Dr. Hanna. Will provide her with 3-day course of oxycodone for severe pain as well. Also encouraged to take Tylenol and ibuprofen. Return precautions were given. All questions were answered. She demonstrated understanding and was in agreement this plan. Critical Care Critical Care Time Critical Care Time: No
[2025-05-12] MEDS: OXYCODONE 5MG IMMEDIATE RELEASE TABLET 5 MG PO (12:16)
[2025-05-12 14:28] VITALS: BP 116/68; PULSE 80; RESP 18; TEMP 36.6; O2SAT 98
== END 2025-05-12 14:29 | disposition home or self-care (01) ==
PROVIDERS: Emergency Provider Student in an Organized Health Care Education/Training Program
DX: S42.202A Unspecified fracture of upper end of left humerus, initial encounter for closed fracture (principal); M79.602 Pain in left arm; W18.09XA Striking against other object with subsequent fall, initial encounter
CPT/HCPCS: 73030; 73060; 99283

== ENCOUNTER 2025-05-19 12:51 | Outpatient (CLI) | payer MEDICARE, SELFPAY ==
--- NOTE | 2025-05-19 12:51 | XR_ITS ---
FINAL REPORT CLINICAL HISTORY: left humerus pain COMPARISON: 05/12/2025 FINDINGS: LEFT HUMERUS Two views show a mildly comminuted fracture of the left humeral neck. There is up to 5 mm of displacement, which is slightly worse from prior exam. The fracture extends into the greater tuberosity. IMPRESSION: Minimal displacement of comminuted proximal humeral fracture. Reviewed, Interpreted and Dictated by Shana Barnard MD Transcribed by Vy Branham Authenticated and [facility]
--- NOTE | 2025-05-19 12:51 | XR_ITS ---
FINAL REPORT CLINICAL HISTORY: left shoulder pain COMPARISON: 05/12/2025 FINDINGS: LEFT SHOULDER Three views show a mildly comminuted fracture of the left humeral neck. There is up to 5 mm of displacement, which is slightly worse from prior exam. The fracture extends into the greater tuberosity. IMPRESSION: Minimal displacement of comminuted proximal humeral fracture. Reviewed, Interpreted and Dictated by Shana Barnard MD Transcribed by Vy Branham Authenticated and [facility]
--- OUTSIDE RECORDS SUMMARY | 2025-05-19 12:53 | XMS_ITS | Encounter Summary ---
Author Organization [facility] Address [address] [place] [address] Care Team Providers Care Fire Apparatus Sprinkler Inspector Name Role Phone Tiffani Mcfarland APRN Primary Care Provider [phone] Encounter Details Date Type Department Care Team (Late st Contact Info) Description 02/24/2023 Ophth Exam [facility] [address] [place] [phone] Luca Fritz MD [address] [place] [address] [phone] Social History Tobacco Use Types Packs/Day Years [...] on filedocumented in this encounter Care Teams Fire Apparatus Sprinkler Inspector Relationship Specialty Start Date End Date Tiffani Mcfarland APRN [address] [place] [address] PCP - General 02/24/23 documented as of this encounter
--- OUTSIDE RECORDS SUMMARY | 2025-05-19 12:53 | XMS_ITS | Clinical Summary ---
Author Organization [facility] Address [address] [place] [address] Care Team Providers Care Tack Puller Name Role Phone Tiffani Mcfarland MARYJO Primary Care Provider [phone] Allergies Active Allergy Reactions Criticality Noted Date [...] [facility]Y-Depression Screening 1958 [facility]-Hepatitis C Screening 1958 [facility]-/Child/Adol SDOH Screenings 1958 [facility]- SDOH Screenings 1976 [facility]-Adult SDOH Screenings 1976 [facility]-DTaP,Tdap,and Td Vaccine s (1 - Tdap) 1977 CT Colonography 2003 Colonoscopy 2003 FIT-DNA 2003 FIT 2003 FOBT 2003 Sigmoidoscopy 2003 [facility]-Colorectal Cancer Screening 2003 [facility]-Breast Cancer Screening 2008 [facility]-Pneumococcal Vaccine: 50 + Years (1 of 1 - PCV) 2008 [facility]Y-Zoster Vaccines (1 of 2) 2008 [id number] Vaccine (2 - 20 24-25 season) 2024 [...] this topic Insurance [employer] Care Teams Tack Puller Relationship Specialty Start Date End Date Tiffani Mcfarland APRN [address] [place] [address] PCP - General 02/24/23
--- OUTSIDE RECORDS SUMMARY | 2025-05-19 12:53 | XMS_ITS | Encounter Summary ---
Author Organization [facility] Address [address] [place] [address] Care Team Providers Care Kosher Inspector Name Role Phone Tiffani Mcfarland APRN Primary Care Provider [phone] Encounter Details Date Type Department Care Team (Late st Contact Info) Description 08/08/2023 Community [facility] [address] [place] [address] Tiffani Mcfarland APRN [address] [place] [address] Leukopenia, unspecified type (Primary Dx) Social History [...] Primary documented in this encounter Care Teams Kosher Inspector Relationship Specialty Start Date End Date Tiffani Mcfarland APRN [address] [place] [phone] PCP - General 02/24/23 documented as of this encounter
== END 2025-05-19 23:59 | disposition home or self-care (01) ==
LOC: RAD 12:51
PROVIDERS: Visit Provider Physician Assistant
DX: S42.212A Unspecified displaced fracture of surgical neck of left humerus, initial encounter for closed fracture (principal); M25.511 Pain in right shoulder; M89.8X2 Other specified disorders of bone, upper arm
CPT/HCPCS: 73030; 73060

== ENCOUNTER 2025-05-26 12:57 | Outpatient (CLI) | payer MEDICARE, SELFPAY ==
--- NOTE | 2025-05-26 12:58 | XR_ITS ---
FINAL REPORT CLINICAL HISTORY: Left shoulder fx F/U COMPARISON: 05/19/2025 FINDINGS: 2 views of the left shoulder were obtained. There is been no interval change in appearance of the comminuted humeral head and neck fracture. There is no dislocation at the glenohumeral joint. There are few abnormalities. IMPRESSION: No change in the humeral head and neck fracture. Reviewed, Interpreted and Dictated by Angela Nieto MD Transcribed by Vy Branham Authenticated and . [facility]
--- OUTSIDE RECORDS SUMMARY | 2025-05-26 13:02 | XMS_ITS | Encounter Summary ---
Author Organization [facility] Address [address] [place] [address] Care Team Providers Care Civil Engineering Project Designer Name Role Phone Tiffani Mcfarland APRN Primary Care Provider [phone] Encounter Details Date Type Department Care Team (Late st Contact Info) Description 02/24/2023 Ophth Exam [facility] [address] [place] [phone] Luca Fritz MD [address] [place] [address] [phone] Social History Tobacco Use Types Packs/Day Years [...] on filedocumented in this encounter Care Teams Civil Engineering Project Designer Relationship Specialty Start Date End Date Tiffani Mcfarland APRN [address] [place] [address] PCP - General 02/24/23 documented as of this encounter
--- OUTSIDE RECORDS SUMMARY | 2025-05-26 13:02 | XMS_ITS | Encounter Summary ---
Author Organization [facility] Address [address] [place] [address] Care Team Providers Care Fashion Artist Name Role Phone Tiffani Mcfarland APRN Primary Care Provider Encounter Details Date Type Department Care Team (Late st Contact Info) Description 08/08/2023 Community [facility] [address] [place] [address] Tiffani Mcfarland APRN [address] [place] [address] Leukopenia, unspecified type (Primary Dx) Social History [...] Primary documented in this encounter Care Teams Fashion Artist Relationship Specialty Start Date End Date Tiffani Mcfarland APRN [address] [place] [phone] PCP - General 02/24/23 documented as of this encounter
--- OUTSIDE RECORDS SUMMARY | 2025-05-26 13:03 | XMS_ITS | Clinical Summary ---
Author Organization [facility] Address [address] [place] [address] Care Team Providers Care Traveling Secretary Name Role Phone Tiffani Mcfarland MARYJO Primary Care Provider [phone] Allergies Active Allergy Reactions Criticality Noted Date [...] 2008 UKY-Zoster Vaccines (1 of 2) 2008 FXG-UEAOW-19 Vaccine (2 - 20 24-25 season) 2024 [...] patient's age to complete this topic Insurance [address] [place] [id number] [employer] Care Teams Traveling Secretary Relationship Specialty Start Date End Date Tiffani Mcfarland APRN [address] [place] [address] PCP - General 02/24/23
== END 2025-05-26 23:59 | disposition home or self-care (01) ==
LOC: RAD 12:58
PROVIDERS: Visit Provider Physician Assistant
DX: S42.212A Unspecified displaced fracture of surgical neck of left humerus, initial encounter for closed fracture (principal); S42.292A Other displaced fracture of upper end of left humerus, initial encounter for closed fracture
CPT/HCPCS: 73030

== ENCOUNTER 2025-06-20 12:48 | Outpatient (CLI) | payer MEDICARE, SELFPAY ==
--- NOTE | 2025-06-20 12:48 | XR_ITS ---
FINAL REPORT CLINICAL HISTORY: left humerus fx COMPARISON: 05/26/2025 FINDINGS: 2 views of the left shoulder were obtained. The comminuted fracture of the humeral head and neck is once again identified. There has only been minimal interval callus formation since the prior examination. No new fracture or dislocation is identified. The joint space is preserved. Soft tissues are unremarkable. IMPRESSION: Comminuted fracture of the left humeral head and neck once again identified, with only minimal interval callus formation since the prior examination. No new fracture or dislocation is identified. Reviewed, Interpreted and Dictated by Angela Nieto MD Transcribed by Grace Arita Authenticated and . [facility]
--- OUTSIDE RECORDS SUMMARY | 2025-06-20 12:51 | XMS_ITS | Clinical Summary ---
Author Organization [facility] Address [address] [place] [address] Care Team Providers Care Grader Green Meat Name Role Phone Tiffani Mcfarland APRN Primary Care Provider [phone] Allergies Active Allergy Reactions Criticality Noted Date [...] Mass Index - - Plan of Treatment Not on file Insurance [employer] Care Teams Grader [employer] Meat Relationship Specialty Start Date End Date Tiffani Mcfarland APRN [address] [place] [phone] PCP - General 02/24/23
--- OUTSIDE RECORDS SUMMARY | 2025-06-20 12:51 | XMS_ITS | Encounter Summary ---
Author Organization [facility] Address [address] [place] [address] Care Team Providers Care Tallier Name Role Phone Tiffani Mcfarland APRN Primary Care Provider [phone] Encounter Details Date Type Department Care Team (Late st Contact Info) Description 02/24/2023 Ophth Exam [facility] [address] [place] [phone] Luca Fritz MD [address] [place] [address] [id number] Social History Tobacco Use Types Packs/Day Years [...] on filedocumented in this encounter Care Teams Tallier Relationship Specialty Start Date End Date Tiffani Mcfarland APRN [address] [place] [phone] PCP - General 02/24/23 documented as of this encounter
--- OUTSIDE RECORDS SUMMARY | 2025-06-20 12:51 | XMS_ITS | Encounter Summary ---
Author Organization [facility] Address [address] [place] [address] Care Team Providers Care Bioinformatics Assistant Name Role Phone Tiffani Mcfarland APRN Primary Care Provider Encounter Details Date Type Department Care Team (Late st Contact Info) Description 08/08/2023 Community [facility] [address] [place] [phone] Tiffani Mcfarland APRN [address] [place] [phone] Leukopenia, unspecified type (Primary Dx) Social History [...] Primary documented in this encounter Care Teams Bioinformatics Assistant Relationship Specialty Start Date End Date Tiffani Mcfarland APRN [address] [place] [phone] PCP - General 02/24/23 documented as of this encounter
== END 2025-06-20 23:59 | disposition home or self-care (01) ==
LOC: RAD 12:48
PROVIDERS: Visit Provider Physician Assistant
DX: S42.292A Other displaced fracture of upper end of left humerus, initial encounter for closed fracture; S42.212A Unspecified displaced fracture of surgical neck of left humerus, initial encounter for closed fracture
CPT/HCPCS: 73030

== ENCOUNTER 2025-07-28 12:43 | Outpatient (CLI) | payer MEDICARE, SELFPAY ==
--- NOTE | 2025-07-28 12:46 | XR_ITS ---
FINAL REPORT CLINICAL HISTORY: left humerus fx FINDINGS: Two views of the left shoulder were obtained. There is a comminuted fracture of the humeral head and neck involving the greater tuberosity, likely subacute. Some callus formation is identified. There is mild degenerative disease. IMPRESSION: Subacute comminuted fracture of the humeral head and neck. Reviewed, Interpreted and Dictated by Angela Nieto MD Transcribed by Yessy Redman Authenticated and [facility]
--- OUTSIDE RECORDS SUMMARY | 2025-07-28 12:47 | XMS_ITS | Data Portability ---
Author Organization [facility] Address [address] [place] [address] Care Team Providers Care Erosion Control Specialist Name Role Phone ALEX SALAS Primary Care Provider Assessment No assessment recorded. Plan of Treatment Reminders Order Date Submit Date Provider Last Modified By Organization Details Last Modified Time Details Appointments None recorded. Lab CMP, serum or plasma 2023 024 ALEXANDER Osei (Centralized Scheduling), [address], [place], [address], 4 15:20:32 CBC w/ auto diff 2023 024 ALEXANDER Osei (Centralized Scheduling), [address], [place], [address], 4 14:23:40 CMP, serum or plasma 2022 023 triston Osei (Centralized Scheduling), [place], [address], 3 12:13:35 CBC w/ auto diff 2022 023 triston Osei (Centralized Scheduling), [place], [address], 3 12:13:35 folate, serum 2022 023 ALEXANDER Osei (Centralized Scheduling), [address], [place], [address], 3 12:13:51 SUSAN + rf (antinuclea r antibodies + rheumatoid factor), quantitativ e, serum 2022 023 [facility] (Centralized Scheduling), [address], [place], [address], 3 12:54:58 Referral None recorded. Procedures None recorded. Surgeries None recorded. Imaging CT, abdomen + pelvis, w/ contrast 2023 024 [email or web address] 65 [facility] (Centralized Scheduling), [address], [place], [address], 4 08:39:45 CT, abdomen + pelvis, w/ contrast 2022 023 [email or web address] [address] [facility] (Centralized Scheduling), [address], [place], [address], 4 08:03:55 LDCT, chest, for lung cancer screening 2022 023 [email or web address] 65 [facility] (Centralized Scheduling), [address], [place], [address], 4 12:00:57 MAMMO, screening, digital, bilateral 2022 023 ALEXANDER Osei (Centralized Scheduling), [address], [place], [address], 4 09:19:04 CT, abdomen + pelvis, w/ contrast 2022 023 [email or web address] [facility] (Centralized Scheduling), [place], [address], 3 10:02:59 LDCT, chest, for lung cancer screening 2022 023 [email or web address] [facility] (Centralized Scheduling), [address] [place] [address] , [place], [address], 3 10:02:59 Medication Orders megestrol 400 mg/10 mL (10 mL) oral suspension 2022 023 [email or web address] [address] [facility], [address] [place], [address], 4 16:16:03 megestrol 400 mg/10 mL (10 mL) oral suspension 2022 023 [email or web address] [address] [facility], [address] [place], [address], 4 16:16:03 Patient TargetsNo targets recorded. Patient InstructionsNo instructions recorded. Reason for Referral None Reported. Results Created Date Observation Date Name Description Value Unit Range Abnormal Flag Note LastModifiedBy Organization Detail LastModifiedTime 07/23/2007/23/2023 FOLIC ACID note SEE NOTE Order ing Provi afshan: Karen gaston MD Not Available [address] , [place], [address], 07/24/2023 12:13:50 07/23/2007/23/2023 FOLIC ACID folic acid 9.9 NG/mL >3.0 . A serum folat e beena ntrat ion of less than 3.1 ng/mL is consi dered to repre sent clini ryanne defic iency . Perfo rmed At: CB, [facility] [address] [place], [address] 5847 Gustavo alonso, PhD, Phone : [phone] Not Available [address] [place], [address], 07/24/2023 12:13:50 07/23/20 23 07/23/2023 FOLIC ACID performing lab SEE NOTE LC2 - LABCO RP ADRIEL T# [id number] Yessica SHEN [address] Not Available [address] , [place], [address], 07/24/2023 12:13:50 07/23/2007/23/2023 RHEUM ATOID FACTO R TITER note See Note Order ing Provi afshan: Karen gaston MD Not Available [address] , [place], [address], 07/25/2023 08:18:43 07/23/2007/23/2023 RHEUM ATOID FACTO R TITER rheumatoid factor titer <10.0 IU/mL <14.0 Not Available [address] , [place], [address], 07/25/2023 08:18:43 07/23/2007/23/2023 RHEUM ATOID FACTO R TITER performing lab see note LC2 - LABCO RP CLIEN T# [id number] [address] [place] [address] Not Available [address] , [place], [address], 07/25/2023 08:18:43 07/23/2007/23/2023 ANTIN UCLEA R ANTIB ODIES TITER note See Note Order ing Provi afshan: Karen gaston MD Not Available [address] , [place], [address], 07/25/2023 09:14:32 07/23/2007/23/2023 ANTIN UCLEA R ANTIB ODIES TITER SUSAN screen Negati ve () Negat gregorio <1:80 Borde rline 1:80 Posit gregorio >1:80 ICAP nomen clatu re: AC-0 For more infor matio n about Hep-2 cell patte rns use ANApa ttern s.org , the offic ial joaquini te for the Inter natio nal Conse nsus on Antin uclea r Antib hayley (SUSAN) Patte rns (ICAP ). Perfo rmed At: CB, [facility] [place] [facility] [address] [facility], [place], [address] 4548 Gustavo ana alonso, PhD, Phone : [phone] Previ zaid meraz t: Heather perkins Edite d by: SREEDHAR on 07/25:0 913 AMEND ED RESUL T Reaso n: [rachael KAUR ND] [] Not Available [address] , [place], [address], 07/25/2023 09:14:32 07/23/2007/23/2023 ANTIN DAVIN SUAZO TITER performing lab see note LC2 - LABCO RP CLIEN T# [id number] [id number] [address] [place] [address] Not Available [address] , [place], [address], 07/25/2023 09:14:32 11/12/19 24 11/12/2023 CBC W/AUT O DIFFE RENTI AL note SEE NOTE Order ing Provi afshan: Karen gaston MD Not Available [address] , [place], [address], 11/12/2023 14:23:40 11/12/19 24 11/12/2023 CBC W/AUT O DIFFE RENTI AL white blood cell 6.5 10e3/ uL 4.5-13 .0 normal Not Available [address] , [place], [address], 11/12/2023 14:23:40 11/12/19 24 11/12/2023 CBC W/AUT O DIFFE RENTI AL red blood cell 4.36 10e6/ uL 3.80-5 .10 normal Not Available [address] , [place], [address], 11/12/2023 14:23:40 11/12/19 24 11/12/2023 CBC W/AUT O DIFFE RENTI AL hemoglobin 13.3 g/dL 11.5-1 5.3 normal Not Available [place] [address], [place], [address], 11/12/2023 14:23:40 11/12/19 24 11/12/2023 CBC W/AUT O DIFFE RENTI AL hematocrit 40.2 % 34.0-4 6.0 normal Not Available [address] [place], [place], [address], 11/12/2023 14:23:40 11/12/19 24 11/12/2023 CBC W/AUT O DIFFE RENTI AL mean cell volume 92 fL 78.0-9 8.0 normal Not Available [place] [address], [place], [address], 11/12/2023 14:23:40 11/12/19 24 11/12/2023 CBC W/AUT O DIFFE RENTI AL mean cell HGB 30.5 pg 25.0-3 5.0 normal Not Available [place] [address], [place], [address], 11/12/2023 14:23:40 11/12/19 24 11/12/2023 CBC W/AUT O DIFFE RENTI AL mean cell HGB concentratio n 33.1 g/dL 31.0-3 6.0 normal Not Available [address] [place], [place], [address], 11/12/2023 14:23:40 11/12/19 24 11/12/2023 CBC W/AUT O DIFFE RENTI AL red cell distribution width 13.8 % 11.0-1 5.0 normal Not Available [address] [place], [place], [address], 11/12/2023 14:23:40 11/12/19 24 11/12/2023 CBC W/AUT O DIFFE RENTI AL platelet count 331 10e3/ uL 150-40 0 normal Not Available [address] , [place], [address], 11/12/2023 14:23:40 11/12/19 24 11/12/2023 CBC W/AUT O DIFFE RENTI AL immature granulocyte % 1 0-1 normal Not Available [address] [place], [place], [address], 11/12/2023 14:23:40 11/12/19 24 11/12/2023 CBC W/AUT O DIFFE RENTI AL neutrophil % 65 % 35-75 normal Not Available [address] [place], [place], [address], 11/12/2023 14:23:40 11/12/19 24 11/12/2023 CBC W/AUT O DIFFE RENTI AL lymphocyte % 27 % 10-50 normal Not Available [address] [place], [place], [address], 11/12/2023 14:23:40 11/12/19 24 11/12/2023 CBC W/AUT O DIFFE RENTI AL monocyte % 6 % 0-15 normal Not Available [place] [address], [place], [address], 11/12/2023 14:23:40 11/12/19 24 11/12/2023 CBC W/AUT O DIFFE RENTI AL eosinophil % 2 % 0-5 normal Not Available [address] , [place], [address], 11/12/2023 14:23:40 11/12/19 24 11/12/2023 CBC W/AUT O DIFFE RENTI AL basophil % 0 % 0-5 normal Not Available [place] [address], [place], [address], 11/12/2023 14:23:40 11/12/19 24 11/12/2023 CBC W/AUT O DIFFE RENTI AL immature granulocyte # 0.03 x1000 /uL 0-0.05 normal Not Available [address] , [place], [address], 11/12/2023 14:23:40 11/12/19 24 11/12/2023 CBC W/AUT O DIFFE RENTI AL neutrophil # 4.19 x1000 /uL 1.50-8 .00 normal Not Available [address] , [place], [address], 11/12/2023 14:23:40 11/12/19 24 11/12/2023 CBC W/AUT O DIFFE RENTI AL lymphocyte # 1.76 x1000 /uL 1.20-5 .20 normal Not Available [address] [place], [place], [address], 11/12/2023 14:23:40 11/12/19 24 11/12/2023 CBC W/AUT O DIFFE RENTI AL monocyte # 0.38 x1000 /uL 0.40-0 .90 low Not Available [address] [place], [place], [address], 11/12/2023 14:23:40 11/12/19 24 11/12/2023 CBC W/AUT O DIFFE RENTI AL eosinophil # 0.11 x1000 /uL 0.00-0 .50 normal Not Available [address] [place], [place], [address], 11/12/2023 14:23:40 11/12/19 24 11/12/2023 CBC W/AUT O DIFFE RENTI AL basophil # 0.01 x1000 /uL 0.00-0 .30 normal Not Available [address] , [place], [address], 11/12/2023 14:23:40 11/12/19 24 11/12/2023 CBC W/AUT O ROB BARNHART NRBC automated 0.0 /100_ WBC Not Available [address] , [place], [address], 11/12/2023 14:23:40 11/12/19 24 11/12/2023 CBC W/AUT O ROB BARNHART performing lab SEE NOTE - [facility] R [address] [facility] [address] [facility] [address] Not Available [address] , [place], [address], 11/12/2023 14:23:40 11/12/19 24 11/12/2023 COMP METAB OLIC PANEL note SEE NOTE Order ing Provi afshan: Karen gaston MD Not Available [address] , [place], [address], 11/12/2023 15:20:32 11/12/19 24 11/12/2023 COMP METAB OLIC PANEL sodium 141 mmol/ L 136-14 5 normal Not Available [address] , [place], [address], 11/12/2023 15:20:32 11/12/19 24 11/12/2023 COMP METAB OLIC PANEL potassium 4.3 mmol/ L 3.5-5. 1 normal Not Available [address] [place], [address], 11/12/2023 15:20:32 11/12/19 24 11/12/2023 COMP METAB OLIC PANEL chloride 104 mmol/ L 98-107 normal Not Available [address] , [place], [address], 11/12/2023 15:20:32 11/12/19 24 11/12/2023 COMP METAB OLIC PANEL carbon dioxide 26 mmol/ L 24-33 normal Not Available [address] , [place], [address], 11/12/2023 15:20:32 11/12/19 24 11/12/2023 COMP METAB OLIC PANEL anion gap 15.3 mmol/ L 10-20 normal Not Available [address] , [place], [address], 11/12/2023 15:20:32 11/12/19 24 11/12/2023 COMP METAB OLIC PANEL glucose 77 mg/dL 70-99 normal Not Available [address] , [place], [address], 11/12/2023 15:20:32 11/12/19 24 11/12/2023 COMP METAB OLIC PANEL blood urea nitrogen 15 mg/dL 7-18 normal Not Available [address] , [place], [address], 11/12/2023 15:20:32 11/12/19 24 11/12/2023 COMP METAB OLIC PANEL creatinine 0.69 mg/dL 0.55-1 .02 normal Not Available [address] , [place], [address], 11/12/2023 15:20:32 11/12/19 24 11/12/2023 COMP METAB OLIC PANEL GFR (estimated) 96 mL/mi n >60 normal [IM IJEOMA NT]: The 2020 CKD-E PI equat ion is now the recom bhargavi d stand lianna. This versi on does not inclu de race, as do the 2008 and 2011 CKD-E PI creat inine and creat inine -cyst atin C equat ions. Pleas e note that the eGFR now repor yvrose is gener ated by the new 2020 CKD-E PI equat ion, which decre ases the eGFR for black s by up to 10% and incre ases the eGFR for non-b lacks by up to 10% in ludy rison to the old equat ion. To ludy re a legac y eGFR to a curre nt value , a 2008 CKD-E PI calcu lator is easil y searc hable on the inter net. Calcu lated GFR: This calcu lated GFR is advoc ated by the Natio nal Kidne y Found ation to be used as an indic ator of Chron ic Kidne y Disea se (CKD) . 5 Stage s of Chron ic Kidne y Disea se. Stage 1 90 mL/mi n or more Healt hy kidne ys or Kidne y damag e with leslie l or high GFR detai ls Stage 2 60 to 89 mL/mi n Kidne y damag e and mild decre ase in GFR detai ls Stage 3 30 to 59 mL/mi n Moder ate decre ase in GFR detai ls Stage 4 15 to 29 mL/mi n Sever e decre ase in GFR detai ls Stage 5 Less than 15 mL/mi n On dialy sis or Kidne y failu re Patie nt's clini ryanne statu s must be consi dered for the care of your patie nt. Not Available [address] , [place], [address], 11/12/2023 15:20:32 11/12/19 24 11/12/2023 COMP METAB OLIC PANEL BUN/creatini ne ratio 21 12-20 high Not Available [address] [place], [address], 11/12/2023 15:20:32 11/12/19 24 11/12/2023 COMP METAB OLIC PANEL total protein 7.0 g/dL 6.4-8. 2 normal Not Available [address] [place], [address], 11/12/2023 15:20:32 11/12/19 24 11/12/2023 COMP METAB OLIC PANEL albumin 3.9 g/dL 3.4-5. 0 normal Not Available [address] , [place], [address], 11/12/2023 15:20:32 11/12/19 24 11/12/2023 COMP METAB OLIC PANEL globulin 3.1 g/dL 1.5-4. 0 normal Not Available [address] , [place], [address], 11/12/2023 15:20:32 11/12/19 24 11/12/2023 COMP METAB OLIC PANEL albumin/glob ulin ratio 1.3 0.5-2. 0 normal Not Available [address] , [place], [address], 11/12/2023 15:20:32 11/12/19 24 11/12/2023 COMP METAB OLIC PANEL calcium 9.6 mg/dL 8.5-10 .1 normal Not Available [address] , [place], [address], 11/12/2023 15:20:32 11/12/19 24 11/12/2023 COMP METAB OLIC PANEL osmolality serum calculated 280 mOsm/ kg 272-28 8 normal Not Available [address] , [place], [address], 11/12/2023 15:20:32 11/12/19 24 11/12/2023 COMP METAB OLIC PANEL bilirubin total 0.5 mg/dL 0.2-1. 0 normal Use of this assay is not recom bhargavi d for patie nts under going treat ment with Eltro mbopa g due to the poten tial for false ly eleva yvrose resul ts. Not Available [address] [place], [address], 11/12/2023 15:20:32 11/12/19 24 11/12/2023 COMP METAB OLIC PANEL SGOT/AST 21 U/L 15-37 normal Not Available [address] , [place], [address], 11/12/2023 15:20:32 11/12/19 24 11/12/2023 COMP METAB OLIC PANEL SGPT/ALT 16 U/L 14-59 normal Not Available [address] , [place], [address], 11/12/2023 15:20:32 11/12/19 24 11/12/2023 COMP METAB OLIC PANEL alkaline phosphatase total 78 U/L 46-116 normal Not Available [address] , [place], [address], 11/12/2023 15:20:32 11/12/19 24 11/12/2023 COMP METAB OLIC PANEL performing lab SEE NOTE ML - [facility] R 9 MEDIC MD [employer] [facility] [address] Not Available [address] , [place], [address], 11/12/2023 15:20:32 08/25/20 23 08/25/2023 - ldct lung scree n [facility] al Medica l Ce Name: SHIRLEY PONCE [facility] healthfincha [facility] Phys: Ivette PUTNAM,[place] [address] : 1959 Age: 63 Sex: F Acct: [id number] Loc: G.CT PHONE #: Exam Date: 2022 Status : DEP CLI FAX #: [phone] Rad# Unit# [id number] Admit Date: 2022 EXAMS: CPT CODE: [id number] CT CHEST LDCT LUNG SCREEN G0297 LUNG CANCER SCREEN ING CHEST CT WITHOU T CONTRA ST, 2022: CLINIC AL HISTOR Y: Asympt omatic 63-yea r-old female with 45-pac k-year histor y of tobacc o use presen ts for lung cancer screen ing. The patien t is a curren t smoker and has a writte n order from a clinic dacia obtain ed during a lung cancer screen ing avae kimberly and shared decisi on-fletcher ing visit. COMPAR IRENE: None. TECHNI QUE: Low-do se protoc ol CT (LDCT) images of the chest are obtain ed from the lung apices to the lung bases withou t intrav enous contra st for lung cancer screen ing. [employer]'s Auto mA automa yvrose exposu re contro l was utiliz ed for radiat ion dose reduct ion. Paiten t Height : 61 inches Patien t Weight : 75 pounds CTDI vol: 1.21 mGy DLP: 43.12 mGy*cm FINDIN GS: Heart is normal in size with modera te reyes ry calcif icatio ns. There are granul omatou s ossifi cation s in the medias tinum withou t pathol ogic intrat horaci c lympha denopa thy. There is biapic al fibros is, left greate r than right. There is mild to modera te centri lobula r emphys dory. There is a 3 mm left lower lobe nodule on image 197, which may repres ent mucus impact ion of the bronch iole. There is a 3 mm left lower lobe nodule on image 116 and a 3 mm left lower lobe nodule on image 163. There are calcif ied granul omas within the lingul a. There is linear atelec tasis versus fibros is within the anteri or aspect of the anteri or segmen t of the right upper lobe. There is a 3 mm right upper lobe nodule on image 69 and a 2 mm right upper lobe nodule on image 107. The airway s are patent and there is no pleura l fluid. Granul omatou s calcif icatio ns involv e the spleen . There is partia l visual izatio n of a 2 cm right renal cyst. The visual ized upper abdomi nal struct ures are otherw ise unrema rkable . The patien t is osteop enic withou t suspic ious osseou s lesion IMPRES EDWARD: 1. Mild to modera te emphys dory with 2-3 mm nodule s in the right upper lobe and left lower lobe. These are compat ible with noncal cified granul omatou s diseas e and recomm end annual low dose screen ing CT PAGE 1 Signed Report (SAE NUTORRIE) [facility] Med[facility] Ce Name: SHRILEY PONCE [employer] Phys: Ivette PUTNAM,[facility] [place] [address] : 1959 Age: 63 Sex: F Acct: [id number] Loc: G.CT PHONE #: [phone] Exam Date: 2022 Status : DEP CLI FAX #: Rad# Unit# [id number] Admit Date: 2022 EXAMS: CPT CODE: [id number] CT CHEST LDCT LUNG SCREEN G0297 2. Modera te reyes ry artery calcif icatio ns. These findin gs are associ ated with an increa sed risk of cardio vascul ar events LRCAT2 - BENIGN APPEAR ANCE OR BEHAVI OR LR1YR - ANNUAL SCREEN ING IN 12 MONTHS NOTE: The patien t has had a total of 0 previo us CTs and cardia c nuclea r medici ne studie s within the past 12 months *Recom mendat ions for follow up/man agemen t of pulmon nestor nodule s will be based on the [employer] criter ia Electr onical ly Signed by LORAINE FABIAN MD on 2022 at 1539 Report ed and signed by: LORAINE FABIAN MD CC: Mike Steele MD; Mike Mario [employer] Dictat ed Date/T judi: 2022 (1539) Techno logist : EHSAN VASQUEZ ; KENNETH LOMBARDO Transc ribed Date/T judi: 2022 (1539) Transc riptio nist: DR.HAG KEVIN Gerard onic Signat ure Date/T judi: 2022 (1539) Printe d Date/T judi: 2022 (1543) BATCH NO: N/A PAGE 2 Signed Report CC'ed Logic: Orderi ng Provid er: JACKELYN MCHUGH Attend ing Provid er: JACKELYN MCHUGH Referr ing Provid er: JACKELYN MCHUGH Consul ting Provid er: MARITZA MCHUGH LE [id number] [facility] [address] [facility] , [place], [address], 11/05/2023 15:39:25 11/12/19 24 11/07/2023 MAMMO , scree cici, digit al, bilat eral No observ ation record ed. [facility] [address] [facility] [place] , [place], [address], 11/12/2023 09:48:35 Result Notes None recorded. Problems Name Problem SNOMED Code Status Onset Date Resolution Date Notes Provider Name and Address Organization Details Recorded Time Leukopenia 54864706 Active 024 VÍCTOR HORTON NP [address] [facility], [place], [address], [facility] - NT [facility] & [place] 4 22:24:42 Abdominal pain 67153816 Active 024 VÍCTOR HORTON NP [address] [facility], [place], [address], [place] - LPNT [facility] [place] 4 22:27:22 Problem Notes None recorded. Procedures Surgical History Date Name Laterality Status Provider Name and Address Organization Details Recorded Time hysterectomy completed Jocelynn SHEN - LPNT [facility] [place] 07/23/2023 09:35:12 Imaging Results None recorded. Procedure Notes None recorded. Medical Equipment None Reported. Allergies Allergen ID Allergen Name Allergen Category Reaction Reaction Severity Criticality Documentation Date Start Date Code Code System Note Provider Name and Address Organization Details Recorded Time 99253 codeine medicatio n Not available Not available Not available 07/23/2023 2670 RxNorm Jocelynn tinsley [place] - LPNT [facility] & [place] 3 09:34:19 Medications Name Sig Start Date Stop Date Status Note LastModified by Organization Details LastModified Time megestrol 400 mg/10 mL (40 mg/mL) oral suspension Take 10 mL every day by oral route for 24 days. active Not Available Not Available No t Available azithromyci n 250 mg tablet 07/23 completed Not Available Not Available Not Available ibuprofen 800 mg tablet Take 1 tablet every 4 hours by oral route as needed for 30 days. active Not Available Not Available No t Available benzonatate 200 mg capsule 07/23 completed Not Available Not Available Not Available phenazopyri dine 200 mg tablet 07/23 completed Not Available Not Available Not Available prednisone 20 mg tablet 08/20 completed Not Available Not Available Not Available sulfamethox azole 800 mg-trimetho prim 160 mg tablet 07/23 completed Not Available Not Available Not Available bisoprolol fumarate 5 mg tablet Take 1 tablet every day by oral route for 30 days. active Not Available Not Available No t Available dicyclomine 20 mg tablet 08/17 completed Not Available Not Available Not Available doxycycline monohydrate 100 mg capsule 08/17 completed Not Available Not Available Not Available losartan 25 mg tablet Take 1 tablet every day by oral route for 30 days. active Not Available Not Available No t Available Vitamin D2 1,250 mcg (50,000 unit) capsule Take 1 capsule every week by oral route for 90 days. active Not Available Not Available No t Available bromphenira mine-pseudo ephedrine-D M 2 mg-30 mg-10 mg/5 mL oral syrup 07/23 completed Not Available Not Available Not Available ondansetron 4 mg disintegrat ing tablet 08/20 completed Not Available Not Available Not Available Ventolin HFA 90 mcg/actuati on aerosol inhaler Inhale 1 puff every 6 hours by inhalatio n route as needed for 25 days. 11/12 completed Not Available Not Available Not Available rosuvastati n 40 mg tablet Take 1 tablet every day by oral route for 90 days. active Not Available Not Available No t Available bupropion HCl XL 300 mg 24 hr tablet, extended release 11/12 completed Not Available Not Available Not Available bupropion HCl XL 150 mg 24 hr tablet, extended release 11/12 completed Not Available Not Available Not Available nitrofurant oin monohydrate /macrocryst als 100 mg capsule 10/11 /2023 completed Not Available Not Available Not Available Symbicort 80 mcg-4.5 mcg/actuati on HFA aerosol inhaler Inhale 1 inhalatio n twice a day by inhalatio n route for 30 days. 11/12 completed Not Available Not Available Not Available megestrol 400 mg/10 mL (10 mL) oral suspension Take 10 mL every day by oral route for 30 days. 11/11 completed Not Available Not Available Not Available Bevespi Aerosphere 9 mcg-4.8 mcg HFA aerosol inhaler Inhale 1 inhalatio n twice a day by inhalatio n route for 30 days. active Not Available Not Available No t Available Vitals Date Recorded Body height Body mass index (BMI) Body weight Body temperature Oxygen saturation Oxygen saturation in Arterial blood by Pulse oximetry Heart rate Respiratory rate Systolic And Diastolic Provider Name and Address Organization Details Last Updated DateTime 4 154.94 cm 13.9 kg/m2 89191.6 8 g 98.3 [degF] 100 % 100 % 78 /min 20 /min 142/65 mm[Hg] Brigitte Lemus [facility] & [place] 4 11:05:24 Date Recorded Body weight Body temperature Oxygen saturation Oxygen saturation in Arterial blood by Pulse oximetry Heart rate Respiratory rate Systolic And Diastolic Provider Name and Address Organization Details Last Updated DateTime 3 58169.3 4 g 97.4 [degF] 98 % 98 % 71 /min 16 /min 149/67 mm[Hg] Jocelynn SHEN [facility] & [place] 3 09:33:53 Date Recorded Body height Body mass index (BMI) Body weight Body temperature Oxygen saturation Oxygen saturation in Arterial blood by Pulse oximetry Heart rate Systolic And Diastolic Provider Name and Address Organization Details Last Updated DateTime 3 152.4 cm 14.4 kg/m2 47030.1 2 g 97.7 [degF] 100 % 100 % 93 /min 130/84 mm[Hg] Rochelle Bright [facility] & [place] 3 09:38:10 Social History Question Answer Notes LastModified by Organizat ion Details LastModified Time Tobacco Smoking Status Current Every Day Smoker HERMELINDA Young [facility] & [place] 07/23/2023 09:34:20 What Is Your Level Of Caffeine Consumption? Moderate [email or web address] Information not available 11/12/2023 What Type Of Diet Are You Following? REGULAR [email or web address] Information not available 11/12/2023 What Was The Date Of Your Most Recent Tobacco Screening? 11/12/2023 [email or web address] Information not available 11/12/2023 At What Age Did You Start Smoking Tobacco? 16 [email or web address] Information not available 11/12/2023 How Much Tobacco Do You Smoke? 2 PPD Pt's Said She Smokes At Least 1.5 PPD. [email or web address] Information not available 11/12/2023 Sex: Female Functional Status Question Answer Note LastModified by Organizat ion Details LastModified Time Do you use any illicit or recreational drugs? No [email or web address] Information not available 11/12/2023 What is your level of alcohol consumption? None [email or web address] Information not available 11/12/2023 Do you or have you ever used smokeless tobacco? Never used smokeless tobacco [email or web address] Information not available 07/23/2023 What is your occupation? Other Information not available 08/20/2023 What is your exercise level? Moderate [email or web address] Information not available 11/12/2023 Mental Status None recorded. Family History Relationship Description Onset Age of this Age Resolved Age Notes LastModified by Organization Details LastModified Time Mother Heart disease [email or web address] Not available 2022 09:34:57 Medical History Condition Response COPD Y Back Problems Y Headaches Y Gynecological HistoryNo gynecological history recorded. Obstetrics History GPAL:G 0 P 0 0 0 0 Past Encounters Encounter ID Performer Location Encounter Start Date Encounter Closed Date Diagnosis/Indication Diagnosis SNOMED-CT Code Diagnosis ICD10 Code Diagnosis IMO Codes Diagnosis Note [id number] MD ERENDIRA [facility] [address] [place] [address] 07/23/2023 08:58:01 07/23/2023 10:09:53 Leukopenia 39707139 D72.819 Patient has borderline leukopenia , grade 1. Otherwise her CBC is normal. In 2021, her white blood cell count was normal. She has normal TSH, B12 level and HIV were negative. I will be checking folic acid level, SUSAN and rheumatoid factor. I have asked the patient to come back in 1 month for follow-up visit. Abdominal pain [id number] R10.9 Patient reports persistent abdominal pain mainly in the left lower quadrant. She denies any urinary symptoms. Of note, she has not had colonoscop y in the past. I have ordered CT scan of the abdomen pelvis with IV contrast. Once the CT scan is obtained then the patient will be referred for colonoscop y. Smoker [id number] F17.218 Patient has long history of heavy smoking. She continues to smoke about 2 packs per day for the last 40 years. I have encouraged the patient to quit smoking. I have ordered low-dose CT scan of the chest. Abnormal weight loss 267 879441 R63.4 I will be starting the patient on Megace. [id number] Mike Steele MD [facility] [address] [place] [address] [place] [address] 08/20/2023 08:53:56 08/20/2023 10:00:01 Leukopenia [id number] D72.819 Patient has borderline leukopenia , grade 1. Otherwise her CBC is normal. In 2021, her white blood cell count was normal. She has normal TSH, B12 level and HIV were negative. SUSAN, rheumatoid factor and folic acid level were normal. We will watch the patient clinically . I need to repeat CBC today. Abdominal pain [id number] R10.9 Patient reports persistent abdominal pain mainly in the left lower quadrant. patient continues to have this pain. I will reorder the CT scan of the abdomen pelvis with IV contrast. I will be checking CMP prior to the contrast study. Once the CT scan is obtained then I will be referring the patient for colonoscop y. Smoker [id number] F17.218 I have encouraged the patient to quit smoking. I will order low-dose CT scan of the chest. Abnormal weight loss 267 702032 R63.4 I will be starting the patient on Megace. Adult heal th examination [id number] Z00.00 patient needs screening mammogram. Depressive disorder [id number] F32.A patient may benefit from Wellbutrin which would help with smoking cessation and also weight gain. Patient is to discuss it with her primary care physician. I will see the patient back in 1 month meanwhile she knows to call with any question or concern. [id number] VÍCTOR HORTON, GILBERTO [facility] [address] [place] [address] Dr MCKENZIE , [place] [id number] 11/12/2023 10:38:07 11/12/2023 11:46:10 Leukopenia [id number] D72.819 Patient has borderline leukopenia , grade 1. Otherwise her CBC was normal. In 2021, her white blood cell count was normal. She has normal TSH, B12 level and HIV were negative. SUSAN, rheumatoid factor and folic acid level were normal. Recommend continued surveillan ce at this time. Mammogram from 11/07/2023 reviewed. Mammogram was negative for malignancy . Recommend repeat mammogram in 1 year. Low-dose CT lung screening from 08/25/2023 reviewed. Patient noted to have mild emphysema with nodules noted. Recommend repeat low-dose CT screening in 1 year. Laboratory evaluation today. Labs pending at this time. Patient to return to clinic in 4 weeks. Should you have any further questions or concerns, please feel free to give me a call at . I personally spent 25 minutes in patient care on this date reviewing records, obtaining interim history, performing a physical exam, counseling the patient, ordering and reviewing today's labs, and documentin g informatio n in the electronic health record. Abdominal pain [id number] R10.9 Patient reports persistent abdominal pain mainly in the left lower quadrant. Patient continues to have this pain. CT scan of the abdomen pelvis with IV contrast has not been performed. Recommend colonoscop y. However, patient refuses at this time. Discussed with patient the importance of colonoscop y and she has agreed to possible Cologuard. Health Concerns Section Related Observation LastModified by Organization Detai ls LastModified Time None Recorded Concern Status LastModified by Organization Details LastModified Time None Recorded Advance Directives Directive None Recorded Payers Insurance Date Sequence Insurance Name Policy Number Policy Mejia Covered Member ID Mejia Member ID Guarantor Name 05/01/2024 1 [employer] [place] (MEDICAID HMO) Glenda Ponce [id number] Glenda Ponce 05/01/2024 1 [employer] (MEDICARE REPLACEMENT/ ADVANTAGE - PPO) Glenda Ponce [id number] Glenda Ponce Notes Date Note Type Note Provider Name and Address Organization Details Recorded Time 07/23/2023 text/html ROS as noted in the HPI Mrs. Glenda Ponce is a very pleasant 63-year-old lady with history of heavy smoking who was referred to us for Leukopenia and unexplained weight loss. Patient smokes at least 2 packs per day for the last 35 years. She feels fatigued all the time and has no energy. She has lost at least 25 lb in 1 year. She does not feel hungry at all. She reports constant nausea with intermittent vomiting. She denies any hematemesis. Patient reports left lower quadrant dull abdominal pain, constant, 7/10, not related to food or bowel movement, and not relieved with bowel movement. She has been having this pain for several months now. Patient denies any change in bowel habits. She has no black or dark stool. She denies any hematuria or dysuria. She reports constant cough we she blames it on COPD. Patient has no acid reflux. She denies any vaginal bleeding or spotting.Of note, patient has never had colonoscopy in the past. Her last mammogram was more than 10 years ago. She has never had low-dose CT scan.- from July 17, 2023 : WBC 3.4, hemoglobin 14.6, hematocrit 43.3, MCV 93, platelet count 253. Absolute neutrophil count 2071, absolute lymphocyte count 1074, absolute eosinophil count 10%, TSH 1.46. HIV nonreactive, vitamin-D level 8, TSH 1.1, vitamin B12 level 314, hemoglobin A1c 5.4, glucose 94, creatinine 0.8, sodium 138, potassium 3.9, calcium 9.6, protein 6.7, albumin 4.4, globulin 2.3, total bilirubin 0.5, alkaline phosphatase 87, AST 21, ALT 8.- From September 12, 2022 WBC 6.1, hemoglobin 13.6, hematocrit 40.1, MCV 92, platelet count 284. Mike Steele MD [address] [place] [address],[address], [place], [address], [facility] - [place] & [place] 08/20/2023 21:35:39 08/20/2023 text/html ROS as noted in the HPI Mrs. Glenda Ponce is a very pleasant 63-year-old lady with history of heavy smoking who was referred to us for Leukopenia and unexplained weight loss. Patient smokes at least 2 packs per day for the last 35 years. She feels fatigued all the time and has no energy. She has lost at least 25 lb in 1 year. She does not feel hungry at all. She reports constant nausea with intermittent vomiting. She denies any hematemesis. Patient reports left lower quadrant dull abdominal pain, constant, 7/10, not related to food or bowel movement, and not relieved with bowel movement. She has been having this pain for several months now. Patient denies any change in bowel habits. She has no black or dark stool. She denies any hematuria or dysuria. She reports constant cough we she blames it on COPD. Patient has no acid reflux. She denies any vaginal bleeding or spotting.Of note, patient has never had colonoscopy in the past. Her last mammogram was more than 10 years ago. She has never had low-dose CT scan.- from July 17, 2023 : WBC 3.4, hemoglobin 14.6, hematocrit 43.3, MCV 93, platelet count 253. Absolute neutrophil count 2071, absolute lymphocyte count 1074, absolute eosinophil count 10%, TSH 1.46. HIV nonreactive, vitamin-D level 8, TSH 1.1, vitamin B12 level 314, hemoglobin A1c 5.4, glucose 94, creatinine 0.8, sodium 138, potassium 3.9, calcium 9.6, protein 6.7, albumin 4.4, globulin 2.3, total bilirubin 0.5, alkaline phosphatase 87, AST 21, ALT 8.- From September 12, 2022 WBC 6.1, hemoglobin 13.6, hematocrit 40.1, MCV 92, platelet count 284.- Or August 20, 2023, patient presented for follow-up visit. She is accompanied by her . She continues to be on Megace 400 mg once a day and she has gained 3 lb. Unfortunately, she continues to smoke 2 packs per day. She continues to have left lower quadrant abdominal pain. CT scan has not been done yet. Patient also request something for her depression.- Folic acid level was normal, SUSAN and rheumatoid factor were negative. Mike Steele MD [address] [place] [address],[address], [place], [address], [facility] - [facility] - [place] & [place] 08/20/2023 21:42:34 11/12/2023 text/html ROS as noted in the HPI 63-year-old female with history of heavy smoking who was referred to us for Leukopenia and unexplained weight loss. Patient smokes at least 2 packs per day for the last 35 years. She feels fatigued all the time and has no energy. She has lost at least 25 lb in 1 year. She does not feel hungry at all. She reports constant nausea with intermittent vomiting. She denies any hematemesis. Patient reports left lower quadrant dull abdominal pain, constant, 7/10, not related to food or bowel movement, and not relieved with bowel movement. She has been having this pain for several months now. Patient denies any change in bowel habits. She has no black or dark stool. She denies any hematuria or dysuria. She reports constant cough we she blames it on COPD. Patient has no acid reflux. She denies any vaginal bleeding or spotting.Of note, patient has never had colonoscopy in the past. Her last mammogram was more than 10 years ago. She has never had low-dose CT scan.- from July 17, 2023 : WBC 3.4, hemoglobin 14.6, hematocrit 43.3, MCV 93, platelet count 253. Absolute neutrophil count 2071, absolute lymphocyte count 1074, absolute eosinophil count 10%, TSH 1.46. HIV nonreactive, vitamin-D level 8, TSH 1.1, vitamin B12 level 314, hemoglobin A1c 5.4, glucose 94, creatinine 0.8, sodium 138, potassium 3.9, calcium 9.6, protein 6.7, albumin 4.4, globulin 2.3, total bilirubin 0.5, alkaline phosphatase 87, AST 21, ALT 8.- From September 12, 2022 WBC 6.1, hemoglobin 13.6, hematocrit 40.1, MCV 92, platelet count 284.- Or August 20, 2023, patient presented for follow-up visit. She is accompanied by her . She continues to be on Megace 400 mg once a day and she has gained 3 lb. Unfortunately, she continues to smoke 2 packs per day. She continues to have left lower quadrant abdominal pain. CT scan has not been done yet. Patient also request something for her depression.- Folic acid level was normal, SUSAN and rheumatoid factor were negative. Patient presents November 12, 2023 for follow-up regarding leukopenia. She is accompanied by her . She continues to be on Megace 400 mg once a day and she has gained 3 lb. Unfortunately, she continues to smoke 2 packs per day. She denies change in bowel habits, black or dark stool. She denies hematuria or dysuria. She continues to note fatigue and cough. VÍCTOR HORTON, CORRECTION LIEUTENANT [address] [facility],[address], [place], [address], [place] - [facility] - [place] & [place] 11/16/2023 22:27:40 OBGyn Episode No OBEpisode recorded.
--- OUTSIDE RECORDS SUMMARY | 2025-07-28 12:47 | XMS_ITS | Clinical Summary ---
Author Organization [facility] Address [address] [place] [address] Care Team Providers Care Supervisor Line Department Name Role Phone Tiffani Mcfarland APRN Primary Care Provider [phone] Allergies Active Allergy Reactions Criticality Noted Date [...] on file Insurance [employer] Care Teams Supervisor Line Department Relationship Specialty Start Date End Date Tiffani Mcfarland APRN [address] [place] [phone] PCP - General 02/24/23
--- OUTSIDE RECORDS SUMMARY | 2025-07-28 12:47 | XMS_ITS | Encounter Summary ---
Author Organization [facility] Address [address] [place] [address] Care Team Providers Care Sales Correspondent Name Role Phone Tiffani Mcfarland APRN Primary Care Provider [phone] Encounter Details Date Type Department Care Team (Late st Contact Info) Description 02/24/2023 Ophth Exam [facility] [address] [place] [phone] Luca Fritz MD [address] [place] [address] [phone] Social History Tobacco Use Types Packs/Day Years [...] on filedocumented in this encounter Care Teams Sales Correspondent Relationship Specialty Start Date End Date Tiffani Mcfarland APRN [address] [place] [phone] PCP - General 02/24/23 documented as of this encounter
--- OUTSIDE RECORDS SUMMARY | 2025-07-28 12:47 | XMS_ITS | Encounter Summary ---
Author Organization [facility] Address [address] [place] [address] Care Team Providers Care Stitch Bonding Machine Tender Name Role Phone Tiffani Mcfarland APRN Primary Care Provider Encounter Details Date Type Department Care Team (Late st Contact Info) Description 08/08/2023 Community [facility] [address] [place] [address] Tiffani Mcfarland APRN [address] [place] [phone] Leukopenia, unspecified type (Primary Dx) Social History [...] Primary documented in this encounter Care Teams Stitch Bonding Machine Tender Relationship Specialty Start Date End Date Tiffani Mcfarland APRN [address] [place] [phone] PCP - General 02/24/23 documented as of this encounter
--- OUTSIDE RECORDS SUMMARY | 2025-07-28 12:48 | XMS_ITS | Data Portability ---
Author Organization saambaa., [facility] Address [address] [place] [address] Care Team Providers Care Emergency Veterinarian Name Role Phone ALEX MCFARLAND Primary Care Provider Unavailabl e Assessment Encounter Date Assessment Date Assessment LastModified by Organization Details LastModified Time 01/26/2025 01/26/2025 Urged patient to go to ER for further evaluation. Applied 2L NC O2 and sat improved but only to 88%. She is alert and oriented. She refuses against medical advice for higher level of care. Treatmetn per plan below. She was advised that not going given her respiratory status could ultimately lead to her , but she states I'm not going to any hospital. Go to ER if worsening. Meds per plan below. Follow up with PCP. Not available 01/31/2025 15:31:13 02/05/2025 02/05/2025 Patient sat 89% on room air and referral to ER. Patient refused medical transport and states will go to [facility] ER by POV. Report phoned to [place] at [facility] ER. [email or web address] Not available 02/05/2025 09:12:17 Plan of Treatment Reminders Order Date Submit Date Provider Last Modified By Organization Details Last Modified Time Details Appointments None recorded. Lab rapid flu (A+B) [address], [place], [address], 15:40:00 rapid SARS CoV 2 Ag, QL, IA, upper respiratory specimen 2024 025 [facility], [place], [address] [place] [address], [address], 15:40:09 Referral None recorded. Procedures None recorded. Surgeries None recorded. Imaging XR, chest, 2 view 2024 025 [email or web address] 7 [facility], [address] [place] [address], [address], 5 09:11:37 Medication Orders Boost Plus 0.06 gram-1.5 kcal/mL oral liquid 2024 025 [email or web address] Not available 15:42:39 sertraline 50 mg tablet 2024 025 [facility], [address] [place] [address], [address], 5 12:17:40 nystatin 100,000 unit/mL oral suspension 2024 025 [facility], [address] [place] [address], [address], 12:10:00 ondansetron 4 mg disintegrat ing tablet [address] [facility], [address] [place] [address], [address], 12:09:57 Dulera 100 mcg-5 mcg/actuati on HFA aerosol inhaler 2024 025 [facility], [address] [place] [address], [address], 10:49:52 ProAir HFA 90 mcg/actuati on aerosol inhaler 2024 025 [facility], [address] [place] [address], [address], 5 14:19:36 aspirin 81 mg tablet,yuli hubbardd release [address] [facility], [address] [place] [address], [address], 5 12:09:57 rosuvastati n 20 mg tablet [address] [facility], [address] [place] [address], [address], 5 12:09:59 Sore Throat (phenol) 1.4 % aerosol spray [address] [facility], [address] [place] [address], [address], 5 09:23:50 azithromyci n 250 mg tablet [address] [facility], [address] [place] [address], [address], 5 08:52:33 amoxicillin 875 mg-potassiu m clavulanate 125 mg tablet [address] [facility], [address] [place] [address], [address], 5 09:23:50 prednisone 20 mg tablet [address] [facility], [address] [place] [address], [address], 5 16:39:07 benzonatate 200 mg capsule [address] [facility], [address] [place] [address], [address], 5 16:39:06 ipratropium 0.5 mg-albutero l 3 mg (2.5 mg base)/3 mL nebulizatio n soln 2024 025 Not available 16:37:51 clonazepam 1 mg tablet [address] [facility], [address] [place] [address], [address], 16:37:46 nystatin 100,000 unit/mL oral suspension [address] [facility], [address] [place] [address], [address], 09:23:51 clonazepam 1 mg tablet [address] [facility], [address] [place] [address], [address], 17:02:21 bupropion HCl XL 150 mg 24 hr tablet, extended release 2024 025 [email or web address] 1 [facility], [address] [place] [address], [address], 09:04:11 Symbicort 160 mcg-4.5 mcg/actuati on HFA aerosol inhaler 2024 025 [facility], [address] [place] [address], [address], 15:37:43 Patient TargetsNo targets recorded. Patient Instructions Encounter Date Encounter Id Patient Instructions Last Modified By Organization Details Last Modified Time 01/11/2025 [id number] PROMIS global- 10* [email or web address] Not available 01/11/2025 13:59:27 01/26/2025 [id number] pneumonia: care instructions Not available 01/26/2025 17:29:02 cough: care instructions Not available 01/26/2025 15:22:38 shortness of breath: care instructions Not available 01/26/2025 15:22:38 02/05/2025 [id number] candidiasis: car e instructions [email or web address] Not available 02/05/2025 09:35:02 learning about mood disorders [email or web address] Not available 02/05/2025 09:01:29 Reason for Referral None Reported. Results Created Date Observation Date Name Description Value Unit Range Abnormal Flag Note LastModifiedBy Organization Detail LastModifiedTime 12/25/1912/25/2024 TSH+F REE T4 TSH 2.440 uIU/m L 0.450- 4.500 normal Not Available [facility] ([facility]) [address] [place], [address], 12/26/2024 15:06:59 12/25/1912/25/2024 TSH+F REE T4 T4,free(dire ct) 1.29 NG/dL 0.82-1 .77 normal Not Available [facility] ([facility]) [address] [place], [address], 12/26/2024 15:06:59 12/25/1912/25/2024 CBC WITH DIFFE RENTI AL/PL ATELE T WBC 7.1 x10e3 /uL 3.4-10 .8 normal Not Available [facility] ([facility]) [address] [place], [address], 12/26/2024 15:07:00 12/25/1912/25/2024 CBC WITH DIFFE RENTI AL/PL ATELE T RBC 4.46 x10e6 /uL 3.77-5 .28 normal Not Available [facility] ([facility]) [address] [place], [address], 12/26/2024 15:07:00 12/25/1912/25/2024 CBC WITH DIFFE RENTI AL/PL ATELE T hemoglobin 12.4 g/dL 11.1-1 5.9 normal Not Available [facility] ([facility]) [address] [place], [address], 12/26/2024 15:07:00 12/25/19 25 12/25/2024 CBC WITH DIFFE RENTI AL/PL ATELE T hematocrit 40.1 % 34.0-4 6.6 normal Not Available [facility] ([facility]) [address] [place], [address], 12/26/2024 15:07:00 12/25/19 25 12/25/2024 CBC WITH DIFFE RENTI AL/PL ATELE T MCV 90 fL 79-97 normal Not Available [facility] ([facility]) [address] [place], [address], 12/26/2024 15:07:00 12/25/19 25 12/25/2024 CBC WITH DIFFE RENTI AL/PL ATELE T MCH 27.8 pg 26.6-3 3.0 normal Not Available [facility] ([facility]) [address] [place], [address], 12/26/2024 15:07:00 12/25/19 25 12/25/2024 CBC WITH DIFFE RENTI AL/PL ATELE T MCHC 30.9 g/dL 31.5-3 5.7 below low normal Not Available [facility] ([facility]) [address] [place], [address], 12/26/2024 15:07:00 12/25/19 25 12/25/2024 CBC WITH DIFFE RENTI AL/PL ATELE T RDW 15.6 % 11.7-1 5.4 above high normal Not Available [facility] ([facility]) [address] [place], [address], 12/26/2024 15:07:00 12/25/19 25 12/25/2024 CBC WITH DIFFE RENTI AL/PL ATELE T platelets 410 x10e3 /uL 150-45 0 normal Not Available [facility] ([facility]) [address] [place], [address], 12/26/2024 15:07:00 12/25/19 25 12/25/2024 CBC WITH DIFFE RENTI AL/PL ATELE T neutrophils 61 % not estab. normal Not Available [facility] ([facility]) [address] [facility], [place], [address], 12/26/2024 15:07:00 12/25/19 25 12/25/2024 CBC WITH DIFFE RENTI AL/PL ATELE T lymphs 30 % not estab. normal Not Available [facility] ([facility]) [address] [facility], [place], [address], 12/26/2024 15:07:00 12/25/19 25 12/25/2024 CBC WITH DIFFE RENTI AL/PL ATELE T monocytes 7 % not estab. normal Not Available [facility] ([facility]) [address] [facility], [place], [address], 12/26/2024 15:07:00 12/25/19 25 12/25/2024 CBC WITH DIFFE RENTI AL/PL ATELE T eos 2 % not estab. normal Not Available [facility] ([facility]) [address] [facility], [place], [address], 12/26/2024 15:07:00 12/25/19 25 12/25/2024 CBC WITH DIFFE RENTI AL/PL ATELE T basos 0 % not estab. normal Not Available [facility] ([facility]) [address] [facility], [place], [address], 12/26/2024 15:07:00 12/25/19 25 12/25/2024 CBC WITH DIFFE RENTI AL/PL ATELE T immature cells PLANT TECHNICIAN/CONTROL ROOM OPERATOR Not Available [facility] ([facility]) [address] [place], [address], 12/26/2024 15:07:00 12/25/19 25 12/25/2024 CBC WITH DIFFE RENTI AL/PL ATELE T neutrophils (absolute) 4.3 x10e3 /uL 1.4-7. 0 normal Not Available [facility] ([facility]) [address] [place], [address], 12/26/2024 15:07:00 12/25/19 25 12/25/2024 CBC WITH DIFFE RENTI AL/PL ATELE T lymphs (absolute) 2.1 x10e3 /uL 0.7-3. 1 normal Not Available [facility] ([facility]) [address] [facility], [place], [address], 12/26/2024 15:07:00 12/25/19 25 12/25/2024 CBC WITH DIFFE RENTI AL/PL ATELE T monocytes(ab solute) 0.5 x10e3 /uL 0.1-0. 9 normal Not Available [facility] ([facility]) [address] [place], [address], 12/26/2024 15:07:00 12/25/19 25 12/25/2024 CBC WITH DIFFE RENTI AL/PL ATELE T eos (absolute) 0.1 x10e3 /uL 0.0-0. 4 normal Not Available [facility] ([facility]) [address] [place], [address], 12/26/2024 15:07:00 12/25/19 25 12/25/2024 CBC WITH DIFFE RENTI AL/PL ATELE T baso (absolute) 0.0 x10e3 /uL 0.0-0. 2 normal Not Available [facility] ([facility]) [address] [place], [address], 12/26/2024 15:07:00 12/25/19 25 12/25/2024 CBC WITH DIFFE RENTI AL/PL ATELE T immature granulocytes 0 % not estab. Not Available [facility] ([facility]) [address] [place], [address], 12/26/2024 15:07:00 12/25/19 25 12/25/2024 CBC WITH DIFFE RENTI AL/PL ATELE T immature grans (abs) 0.0 x10e3 /uL 0.0-0. 1 Not Available [facility] ([facility]) [address] [facility], [place], [address], 12/26/2024 15:07:00 12/25/19 25 12/25/2024 CBC WITH DIFFE RENTI AL/PL ATELE T NRBC PLANT TECHNICIAN/CONTROL ROOM OPERATOR Not Available [facility] ([facility]) [address] [facility], [place], [address], 12/26/2024 15:07:00 12/25/19 25 12/25/2024 CBC WITH DIFFE RENTI AL/PL ATELE T hematology comments: PLANT TECHNICIAN/CONTROL ROOM OPERATOR Not Available [facility] ([facility]) [address] [facility], [place], [address], 12/26/2024 15:07:00 12/25/19 25 12/25/2024 COMP. METAB OLIC PANEL (14) glucose 91 mg/dL 70-99 normal Not Available [facility] ([facility]) [address] [facility], [place], [address], 12/26/2024 15:07:01 12/25/19 25 12/25/2024 COMP. METAB OLIC PANEL (14) BUN 28 mg/dL 8-27 above high normal Not Available [facility] ([facility]) [address] [facility], [place], [address], 12/26/2024 15:07:01 12/25/19 25 12/25/2024 COMP. METAB OLIC PANEL (14) creatinine 0.67 mg/dL 0.57-1 .00 normal Not Available [facility] ([facility]) [address] [facility], [place], [address], 12/26/2024 15:07:01 12/25/19 25 12/25/2024 COMP. METAB OLIC PANEL (14) eGFR 96 mL/mi n/1.7 3 >59 normal Not Available [facility] ([facility]) [address] [place], [address], 12/26/2024 15:07:01 12/25/19 25 12/25/2024 COMP. METAB OLIC PANEL (14) BUN/creatini ne ratio 42 12-28 above high normal Not Available [facility] ([facility]) [address] [place], [address], 12/26/2024 15:07:01 12/25/19 25 12/25/2024 COMP. METAB OLIC PANEL (14) sodium 139 mmol/ L 134-14 4 normal Not Available [facility] ([facility]) [address] [place], [address], 12/26/2024 15:07:01 12/25/19 25 12/25/2024 COMP. METAB OLIC PANEL (14) potassium 4.5 mmol/ L 3.5-5. 2 normal Not Available [facility] ([facility]) [address] [place], [address], 12/26/2024 15:07:01 12/25/19 25 12/25/2024 COMP. METAB OLIC PANEL (14) chloride 102 mmol/ L 96-106 normal Not Available [facility] ([facility]) [address] [place], [address], 12/26/2024 15:07:01 12/25/19 25 12/25/2024 COMP. METAB OLIC PANEL (14) carbon dioxide, total 22 mmol/ L 20-29 normal Not Available [facility] ([facility]) [address] [place], [address], 12/26/2024 15:07:01 12/25/19 25 12/25/2024 COMP. METAB OLIC PANEL (14) calcium 9.7 mg/dL 8.7-10 .3 normal Not Available [facility] ([facility]) [address] [place], [address], 12/26/2024 15:07:01 12/25/19 25 12/25/2024 COMP. METAB OLIC PANEL (14) protein, total 7.1 g/dL 6.0-8. 5 normal Not Available [facility] ([facility]) [address] [place], [address], 12/26/2024 15:07:01 12/25/19 25 12/25/2024 COMP. METAB OLIC PANEL (14) albumin 4.4 g/dL 3.9-4. 9 normal Not Available [facility] ([facility]) [address] [place], [address], 12/26/2024 15:07:01 12/25/19 25 12/25/2024 COMP. METAB OLIC PANEL (14) globulin, total 2.7 g/dL 1.5-4. 5 Not Available [facility] ([facility]) [address] [place], [address], 12/26/2024 15:07:01 12/25/19 25 12/25/2024 COMP. METAB OLIC PANEL (14) bilirubin, total 0.3 mg/dL 0.0-1. 2 normal Not Available [facility] ([facility]) [address] [place], [address], 12/26/2024 15:07:01 12/25/19 25 12/25/2024 COMP. METAB OLIC PANEL (14) alkaline phosphatase 112 IU/L 44-121 normal Not Available [facility] ([facility]) [address] [place], [address], 12/26/2024 15:07:01 12/25/19 25 12/25/2024 COMP. METAB OLIC PANEL (14) AST (SGOT) 31 IU/L 0-40 normal Not Available [facility] ([facility]) [address], [place], [address], 12/26/2024 15:07:01 12/25/19 25 12/25/2024 COMP. METAB OLIC PANEL (14) ALT (SGPT) 20 IU/L 0-32 normal Not Available [facility] ([facility]) [address] [place], [address], 12/26/2024 15:07:01 12/25/19 25 12/25/2024 LIPID PANEL cholesterol, total 141 mg/dL 100-19 9 normal Not Available [facility] ([facility]) [address] [place], [address], 12/26/2024 15:07:01 12/25/19 25 12/25/2024 LIPID PANEL triglyceride s 67 mg/dL 0-149 normal Not Available [facility] ([facility]) [address] [place], [address], 12/26/2024 15:07:01 12/25/19 25 12/25/2024 LIPID PANEL HDL cholesterol 66 mg/dL >39 normal Not Available [facility] ([facility]) [address] [place], [address], 12/26/2024 15:07:01 12/25/19 25 12/25/2024 LIPID PANEL VLDL cholesterol ryanne 14 mg/dL 5-40 Not Available [facility] ([facility]) [address] [place], [address], 12/26/2024 15:07:01 12/25/19 25 12/25/2024 LIPID PANEL LDL chol calc ([facility]) 61 mg/dL 0-99 Not Available [facility] ([facility]) [address] [place], [address], 12/26/2024 15:07:01 12/25/19 25 12/25/2024 LIPID PANEL LDL calc comment: PLANT TECHNICIAN/CONTROL ROOM OPERATOR Not Available [facility] ([facility]) [address] [place], [address], 12/26/2024 15:07:01 12/25/19 25 12/25/2024 VITAM IN B12 AND FOLAT E vitamin B12 359 pg/mL 232-12 45 normal Not Available [facility] ([facility]) [address] [place], [address], 12/26/2024 15:07:02 12/25/19 25 12/25/2024 VITAM IN B12 AND FOLAT E folate (folic acid), serum 10.4 NG/mL >3.0 normal A serum folat e beena ntrat ion of less than 3.1 ng/mL is consi dered to repre sent clini ryanne defic iency . Not Available [facility] ([facility]) [address] [facility], [place], [address], 12/26/2024 15:07:02 12/25/19 25 12/25/2024 HEMOG LOBIN A1C hemoglobin A1C 5.5 % 4.8-5. 6 normal Predi abete s: 5.7 - 6.4 Diabe chen: >6.4 Glyce melida contr ol for adult s with diabe chen: <7.0 Not Available [facility] ([facility]) [address] [facility], [place], [address], 12/26/2024 15:07:03 12/25/19 25 12/25/2024 CANCE R ANTIG EN (CA) 125 cancer antigen (Ca) 125 29.4 U/mL 0.0-38 .1 normal [facility] Elect edgar milum inesc ence Immun oassa y (ECLI A) Value s obtai prem with diffe rent assay metho ds or kits canno t be used inter mills eably . Resul ts canno t be inter prete d as absol [place] evide nce of the prese nce or absen ce of yulisa leon se. Not Available [facility] ([facility]) [address] [facility], [place], [address], 12/26/2024 15:07:03 12/25/19 25 12/25/2024 VITAM IN D, 25-HY DROXY vitamin D, 25-hydroxy 57.7 NG/mL 30.0-1 00.0 Vitam in D defic iency has been defin ed by the Insti tute of Medic ine and an Endoc rine Socie ty pract ice guide line as a level of serum 25-OH vitam in D less than 20 ng/mL (1,2) . The Endoc rine Socie ty went on to furth er defin e vitam in D insuf ficie ncy as a level betwe en 21 and 29 ng/mL (2). 1. IOM (Inst itute of Medic ine). 2009. Denise ry refer ence intak es for calci um and D. Marietta mariee [place]: The [facility] Press . 2. Jan santiago MF, Willie duran [place], Beata off-F errar i RODRIGUEZ, et al. Evalu ation , treat ment, and preve ntion of vitam in D defic iency : an Endoc rine Socie ty clini ryanne pract ice guide line. JCEM. 2010; 96(7) :1911 -30. Not Available [facility] ([facility]) [address] [facility], [place], [address], 12/26/2024 15:07:04 12/25/19 25 12/25/2024 HIV AB/P2 4 AG WITH REFLE X HIV Ab/P24 Ag screen Non Reacti ve non reacti ve HIV-1 /HIV- 2 antib odies and HIV-1 p24 antig en were NOT detec yvrose. There is no labor atory evide nce of HIV infec tion. HIV Negat gregorio Not Available [facility] ([facility]) [address] [facility], [place], [address], 12/26/2024 15:07:04 12/25/19 25 12/26/2024 CORTI CUAUHTEMOC - AM cortisol - AM 3.8 ug/dL 6.2-19 .4 below low normal Not Available [facility] ([facility]) [address] [place], [address], 12/26/2024 15:07:05 12/28/1912/28/2024 FSH AND LH LH 11.9 mIU/m L 7.7-58 .5 normal Adult Femal e Range Folli cular phase 2.4 - 12.6 Ovula tion phase 14.0 - 95.6 Lutea l phase 1.0 - 11.4 Postm enopa usal 7.7 - 58.5 Not Available [facility] ([facility]) [address] [facility], [place], [address], 01/04/2025 04:07:28 12/28/1912/28/2024 FSH AND LH FSH 36.8 mIU/m L 25.8-1 34.8 Adult Femal e Range Folli cular phase 3.5 - 12.5 Ovula tion phase 4.7 - 21.5 Lutea l phase 1.7 - 7.7 Postm enopa usal 25.8 - 134.8 Not Available [facility] ([facility]) [address] [facility], [place], [address], 01/04/2025 04:07:28 12/28/1901/04/2025 DHEA- SULFA TE, SERUM DHEA-sulfate , lcms <10 ug/dL This test was devel oped and its perfo rmanc e shahriar cteri stics deter mined by [facility]. It has not been clear ed or appro elizabeth by the Food and Drug Admin istra tion. Refer ence Range : Adult Femal es (61 - 70y): <128 Not Available [facility] [address] [facility], [place], [address], 01/04/2025 04:07:29 12/28/1912/28/2024 ACTH, PLASM A acth, plasma 7.1 pg/mL 7.2-63 .3 below low normal ACTH refer ence inter daniel for sampl es colle cted betwe en 7 and 10 AM. Not Available [facility] ([facility]) [address] [facility], [place], [address], 01/04/2025 04:07:29 12/28/19 25 12/28/2024 PROLA CTIN prolactin 19.9 NG/mL 3.6-25 .2 normal Not Available [facility] ([facility]) [address] [facility], [place], [address], 01/04/2025 04:07:29 12/28/19 25 12/28/2024 PTH, INTAC T PTH, intact 19 pg/mL 15-65 normal Not Available [facility] ([facility]) [address] [facility], [place], [address], 01/04/2025 04:07:30 01/27/20 25 01/26/2025 rapid SARS CoV 2 Ag, QL, IA, upper respi rator y speci men SARS CoV Ag negati ve Not Available [address], [address], 01/26/2025 15:22:03 01/27/20 25 01/26/2025 rapid flu (A+B) Flu A negati ve Not Available [address], [address], 01/26/2025 15:22:02 01/27/20 25 01/26/2025 rapid flu (A+B) Flu B negati ve Not Available [address], [address], 01/26/2025 15:22:02 11/24/19 25 11/24/2024 LDCT, chest , for lung cance r scree cici No observ ation record ed. [email or web address] [facility] [address], [place], [address], 11/30/2024 10:52:12 01/27/20 XR, chest , 2 view No observ ation record ed. [email or web address] [address], [place], [address], 01/27/2025 09:41:57 01/27/2001/26/2025 CT, chest , w/ contr ast No observ ation record ed. [address], [place], [address], 01/27/2025 12:39:23 02/06/20 25 02/05/2025 XR, chest , 2 view No observ ation record ed. [address], [place], [address], 02/10/2025 14:40:44 02/06/20 25 02/05/2025 rhyth m strip , EKG* No observ ation record ed. [address], [place], [address], 02/10/2025 14:40:33 Result Notes None recorded. Problems Name Problem SNOMED Code Status Onset Date Resolution Date Notes Provider Name and Address Organization Details Recorded Time Pediculo sis capitis 73472359 Completed 201804/26/2021 Problem Code: B85.0; Problem Code Type: ICD-10; Not Available [facility] 2 22:48:15 Chronic obstruct gregorio pulmonar y disease with acute lower respirat ory infectio n 664973454 Active 2018 Problem Code: J44.0; Problem Code Type: ICD-10; Not Available [facility] 22:48:16 Influenz a with non-resp iratory manifest ation 49039679 Completed 201812/01/2018 Problem Code: 487.8; Problem Code Type: ICD-9; Not Available [facility] 22:48:19 Major depressi on, single episode 31063455 Active 2020 Problem Code: F32.9; Problem Code Type: ICD-10; Not Available [facility] 22:48:16 Urinary tract infectio us disease 94282490 Completed 202005/22/2021 Problem Code: N39.0; Problem Code Type: ICD-10; Not Available [facility] 2 22:48:16 Dysuria 84788802 Completed 202005/22/2021 Problem Code: R30.0; Problem Code Type: ICD-10; Not Available [facility] 2 22:48:17 Nicotine dependen ce 07653035 Active 2020 Problem Code: F17.200; Problem Code Type: ICD-10; Not Available [facility] 22:48:16 Finding of body mass index 675554608 Completed 202005/22/2021 Problem Code: Z68.1; Problem Code Type: ICD-10; Not Available [facility] 22:48:18 General examinat ion of patient Completed 202011/26/2022 LASHAWN tinsley, [employer] 3 09:23:54 Chronic fatigue syndrome 68842480 Active 2020 Problem Code: R53.82; Problem Code Type: ICD-10; Not Available [facility] 2 22:48:17 Acute respirat ory infectio ns 470310548 Completed 202007/15/2023 Problem Code: J22; Problem Code Type: ICD-10; NILSA tinsley, [employer] 3 14:16:47 Cough 63897264 Completed 202008/13/2024 Problem Code: R05; Problem Code Type: ICD-10; Ariadna Sweeney NP [address] [place], [address] , [employer] 5 15:21:43 Exposure to SARS-CoV -2 Completed 202009/11/2021 Problem Code: Z20.822; Problem Code Type: ICD-10; Ariadna Sweeney NP [address] [place] [address], [address] , [employer] 4 11:39:20 Cough 28218527 Completed 202009/11/2021 Problem Code: R05; Problem Code Type: ICD-10; Ariadna Sweeney, GILBERTO [address] [place] [address], [address] , [employer] 5 15:21:43 Headache 18892102 Completed 202007/15/2023 Problem Code: R51; Problem Code Type: ICD-10; NILSA GALDAMEZLEROYR null, [employer] 3 14:16:47 Exposure to SARS-CoV -2 Completed 202008/13/2024 Problem Code: Z20.822; Problem Code Type: ICD-10; Ariadna Sweeney NP [address] [place] [address], [address] , [employer] 4 11:39:20 Insomnia 446668295 Active 2020 Not Available [facility] 2 22:48:16 Pleuriti c pain 4491384 Completed 202107/15/2023 Problem Code: R07.81; Problem Code Type: ICD-10; NILSA GALDAMEZCHEN null, [employer] 14:16:47 Finding of body mass index [id number] Active 2021 Problem Code: Z68.1; Problem Code Type: ICD-10; Not Available [facility] 2 22:48:17 Anxiety disorder 996644545 Active 2021 Not Available [facility] 2 22:48:16 Lesion of oral mucosa [id number] Completed 202107/15/2023 Problem Code: K13.70; Problem Code Type: ICD-10; NILSA MYCHEN null, [employer] 3 14:16:47 Chest pain [id number] Completed 202107/15/2023 Problem Code: R07.9; Problem Code Type: ICD-10; NILSA HUITRON alvina, [employer] 3 14:16:47 Hyperlip idemia 26121968 Active 2021 Problem Code: E78.5; Problem Code Type: ICD-10; Not Available [facility] 2 22:48:16 Nausea [id number] Completed 202208/13/2024 Ariadna Sweeney NP [address] [place] [address], [phone] , [employer] 4 11:39:12 Divertic ulitis 851663901 Completed 202208/13/2024 Ariadna Sweeney NP [address] [place] [address], [phone] , [employer] 4 11:39:07 Abdomina l pain 14772738 Completed 202208/13/2024 Ariadna Sweeney NP [address] [place] [address], [phone] , [place] [employer] 4 11:39:04 Thoracic back pain 534923651 Active 2023 Ariadna Sweeney NP [address] [place] [address], [phone] , [place] [employer] 4 11:27:51 Pain of multiple joints 42674322 Active 2023 Ariadna Sweeney NP [address] [place] [address], [phone] , [employer] 4 11:39:08 Fever 638268667 Active 2024 Elsa tinsley, [employer] 5 13:25:25 Cough 68596404 Active 2024 Problem Code: R05; Problem Code Type: ICD-10; Ariadna Sweeney NP [address] [place] [address], [id number] , [employer] 5 15:21:42 Dyspnea 129950063 Active 2024 Ariadna Sweeney NP [address] [place] [address], [phone] , [employer] 15:21:47 Hypoxia 121608106 Active 2024 Ariadna Sweeney NP [address] [place] [address], [phone] , [employer] 15:21:56 Acute lower respirat ory tract infectio n 165983989 Active 2024 Ariadna Sweeney NP [address] [place] [address], [address] [place] [address] , [employer] 15:55:25 Sore throat 648633353 Active 2024 Ariadna Sweeney NP [address] [place] [address], [address] [place] [address] , [employer] 15:59:36 Pneumoni a 357888736 Active 2024 Ariadna Sweeney NP [address] [place] [address], [address] [place] [address] , [employer] 17:28:39 Depressi ve disorder 06538358 Active 2024 Lucina Middleton NP [address] [place] [address], [address] [place] [address] , [employer] 09:00:43 Acute exacerba tion of chronic obstruct gregorio pulmonar y disease 049031268 Active 2024 Lucina Middleton NP [address] [place] [address], [address] [place] [address] , [employer] 09:10:44 Underwei ght 061635294 Active 2024 Lucina Middleton NP [address] [place] [address], [address] [place] [address] , [employer] 09:12:26 Candidia sis of mouth 79546333 Active 2024 Lucina Middleton NP [address] [place], [address] , [facility] [email or web address] 5 09:34:40 Problem Notes None recorded. Procedures Surgical History Date Name Laterality Status Provider Name and Address Organization Details Recorded Time 9 hysterectomy completed Not Available [facility] 022 22:56:14 Imaging Results None recorded. Procedure Notes None recorded. Medical Equipment None Reported. Allergies Allergen ID Allergen Name Allergen Category Reaction Reaction Severity Criticality Documentation Date Start Date Code Code System Note Provider Name and Address Organization Details Recorded Time 05676 codeine sulfate medicatio n Not available Not available Not available 06/18/2022 47609 RxNorm Not Available [facility] 22:56:19 Medications Name Sig Start Date Stop Date Status Note LastModified by Organization Details LastModified Time nifedipin e ER 30 mg tablet,ex tended release 24 hr TAKE 1 TABLET 1 TIME EACH DAY active Not Available Not Available No t Available megestrol 400 mg/10 mL (40 mg/mL) oral suspensio n Take 10 mL every day by oral route for 30 days. 08/23 completed Not Available Not Available Not Available Sore Throat (phenol) 1.4 % aerosol spray Take 1 spray every 2 hours by mucous route as needed, for sore throat. 01/31 completed Not Available Not Available Not Available nystatin 100,000 unit/mL oral suspensio n swish and spit with 5 ml by mouth four times a day active Not Available Not Available No t Available venlafaxi ne ER 37.5 mg capsule,e xtended release 24 hr take 1 capsule (37.5 mg) by oral route once daily with food 05/22 completed Not Available Not Available Not Available venlafaxi ne 75 mg tablet take 1 tablet (75 mg) by oral route once daily with food 12/11 completed Not Available Not Available Not Available ipratropi um 0.5 mg-albute rol 3 mg (2.5 mg base)/3 mL nebulizat ion soln inhale contents of 1 vial every 6 hours via nebulize r as needed for shortnes s of breath or wheezing active Not Available Not Available No t Available trazodone 50 mg tablet take 1 tablet (50 mg) by oral route once daily at bedtime 11/26 completed Not Available Not Available Not Available azithromy oneyda 250 mg tablet take 2 tablets by mouth once daily at 9 pm for 3 days active Not Available Not Available No t Available ibuprofen 800 mg tablet TAKE ONE TABLET BY MOUTH THREE TIMES DAILY WITH FOOD NEEDED FOR PAIN. Do not take with predniso ne active Not Available Not Available No t Available benzonata te 200 mg capsule TAKE ONE CAPSULE BY MOUTH THREE TIMES DAILY NEEDED FOR COUGH active Not Available Not Available No t Available phenazopy ridine 200 mg tablet Take 1 tablet 3 times a day by oral route as needed for 3 days. 07/15 completed Not Available Not Available Not Available prednison e 20 mg tablet TAKE TWO TABLETS BY MOUTH EVERY DAY FOR 3 DAYS active Not Available Not Available No t Available clonazepa m 0.5 mg tablet Take 1 tablet twice a day by oral route for 30 days. 12/13 completed Not Available Not Available Not Available clonazepa m 1 mg tablet TAKE ONE TABLET BY MOUTH TWICE DAILY FOR 30 DAYS active Not Available Not Available No t Available Tamiflu 75 mg capsule Take 1 capsule( s) by mouth bid for 5 days 12/22 completed Not Available Not Available Not Available sulfameth oxazole 800 mg-trimet hoprim 160 mg tablet Take 1 tablet every 12 hours by oral route. 07/15 completed Not Available Not Available Not Available aspirin 81 mg tablet,de layed release TAKE ONE TABLET BY MOUTH EVERY DAY active Not Available Not Available No t Available bisoprolo l fumarate 5 mg tablet 08/23 completed Not Available Not Available Not Available Tessalon Perles 100 mg capsule one pill every 8 hours as needed for cough 01/16 completed Not Available Not Available Not Available methocarb caitlin 750 mg tablet TAKE TWO TABLETS BY MOUTH THREE TIMES DAILY FOR 5 DAYS 01/26 completed Not Available Not Available Not Available Lice Treatment (permethr in) 1 % topical liquid Apply sufficie nt amount hair and scalp. Leave on for 10 min then rinse off. Apply to hair that has been washed, rinsed and dried. 01/16 completed Not Available Not Available Not Available dicyclomi ne 20 mg tablet TAKE ONE TABLET BY MOUTH FOUR TIMES DAILY 01/31 completed Not Available Not Available Not Available doxycycli ne monohydra te 100 mg capsule Take 1 capsule twice a day by oral route. 10/30 completed Not Available Not Available Not Available lidocaine 5 % topical patch APPLY 1 PATCH BY TOPICAL ROUTE ONCE DAILY (MAY WEAR UP TO 12HOURS. ) 08/23 completed Not Available Not Available Not Available losartan 25 mg tablet 08/23 completed Not Available Not Available Not Available sertralin e 25 mg tablet take 1 tablet (25 mg) by oral route once daily 04/27 completed Not Available Not Available Not Available ceftriaxo ne 500 mg solution for injection Take 500 mg by injectio n route. 07/15 completed Not Available Not Available Not Available albuterol sulfate HFA 90 mcg/actua tion aerosol inhaler INHALE ONE puff by mouth every 4 hours as needed active Not Available Not Available No t Available Vitamin D2 1,250 mcg (50,000 unit) capsule TAKE 1 CAPSULE EVERY WEEK BY ORAL ROUTE FOR 90 DAYS. 11/15 completed Not Available Not Available Not Available megestrol 20 mg tablet TAKE ONE TABLET BY MOUTH FOUR TIMES DAILY 01/31 completed Not Available Not Available Not Available brompheni ramine-ps eudoephed rine-DM 2 mg-30 mg-10 mg/5 mL oral syrup Take 10 mL every 4 hours by oral route as needed. 10/30 completed Not Available Not Available Not Available ondansetr on 4 mg disintegr ating tablet DISSOLVE ONE TABLET ON THE TONGUE every FOUR TO SIX hours as needed active Not Available Not Available No t Available sertralin e 50 mg tablet Take 1 tablet every day by oral route for 30 days. active Not Available Not Available No t Available amoxicill in 875 mg-potass ium clavulana te 125 mg tablet TAKE ONE TABLET BY MOUTH every 12 hours 01/31 completed Not Available Not Available Not Available hydroxyzi ne pamoate 25 mg capsule take 1 capsule (25 mg) by oral route 3 times per day PRN anxiety 11/26 completed Not Available Not Available Not Available azithromy oneyda 500 mg tablet TAKE 1 TABLET BY MOUTH ONCE DAILY FOR 5 DAYS 10/15 completed Not Available Not Available Not Available cyclobenz aprine 5 mg tablet Take 1 tablet every 6-8 hours by oral route as needed, for muscle spasms. 11/15 completed Not Available Not Available Not Available rosuvasta tin 20 mg tablet TAKE ONE TABLET BY MOUTH EVERY EVENING 2024 active Not Available Not Available Not Avai lable rosuvasta tin 40 mg tablet Take 1 tablet every day by oral route. 08/23 completed Not Available Not Available Not Available bupropion HCl XL 300 mg 24 hr tablet, extended release Take 1 tablet every day by oral route. 08/23 completed Not Available Not Available Not Available bupropion HCl XL 150 mg 24 hr tablet, extended release 01/31 completed Not Available Not Available Not Available mirtazapi ne 7.5 mg tablet TAKE ONE TABLET BY MOUTH EVERY DAY active Not Available Not Available No t Available nitrofura ntoin monohydra te/macroc rystals 100 mg capsule Take 1 capsule every 12 hours by oral route for 10 days. 07/15 completed Not Available Not Available Not Available Symbicort 160 mcg-4.5 mcg/actua tion HFA aerosol inhaler Inhale 2 puffs twice a day by inhalati on route. 01/26 completed Not Available Not Available Not Available Symbicort 80 mcg-4.5 mcg/actua tion HFA aerosol inhaler Inhale 2 puffs twice a day by inhalati on route. 10/15 completed Not Available Not Available Not Available Dulera 100 mcg-5 mcg/actua tion HFA aerosol inhaler inhale TWO puffs BY MOUTH TWICE DAILY active Not Available Not Available No t Available Boost Plus 0.06 gram-1.5 kcal/mL oral liquid Take 3 bottles per day with meals 2024 active Ordering through [facility] for home delivery Not Available Not Available Not Available Vraylar 1.5 mg capsule take 1 capsule (1.5 mg) by oral route once daily 11/26 completed Not Available Not Available Not Available Bevespi Aerospher e 9 mcg-4.8 mcg HFA aerosol inhaler Inhale 2 puffs twice a day by inhalati on route. 01/26 completed makes pt sick Not Available Not Available Not Available Flowflex COVID-19 Antigen Home Test kit 08/16 completed Not Available Not Available Not Available Vitals Date Recorded Body height Body mass index (BMI) Body weight Heart rate Oxygen saturation Oxygen saturation in Arterial blood by Pulse oximetry Systolic And Diastolic Provider Name and Address Organization Details Last Updated DateTime 5 154.94 cm 12.7 kg/m2 68155.6 9 g 118 /min 94 % 94 % 105/70 mm[Hg] Elsa Dominguez [employer] 5 15:01:14 Date Recorded Body height Body mass index (BMI) Body weight Heart rate Oxygen saturation Oxygen saturation in Arterial blood by Pulse oximetry Pain severity - 0-10 verbal numeric rating [Score] - Reported Systolic And Diastolic Provider Name and Address Organization Details Last Updated DateTime 5 154.94 cm 13.8 kg/m2 36876.2 4 g 120 /min 92 % 92 % 6 127/69 mm[Hg] Elsa Dominguez [employer] 5 13:08:37 Date Recorded Body temperature Provider Name a ga Address Organization Details Last Updated DateTime 01/26/2025 99.8 [degF] Ariadna Sweeney NP [address] [place] [address], [phone], [employer] 01/26/2025 16:01:11 Date Recorded Body height Body mass index (BMI) Body weight Heart rate Oxygen saturation Oxygen saturation in Arterial blood by Pulse oximetry Systolic And Diastolic Provider Name and Address Organization Details Last Updated DateTime 5 154.94 cm 15 kg/m2 21020.9 g 120 /min 63 % 63 % 117/65 mm[Hg] Carmela Rooney [employer] 5 14:35:51 Date Recorded Body height Body mass index (BMI) Body weight Heart rate Oxygen saturation Oxygen saturation in Arterial blood by Pulse oximetry Inhaled oxygen flow rate Systolic And Diastolic Systolic And Diastolic Systolic And Diastolic Provider Name and Address Organization Details Last Updated DateTime 5 154.94 cm 13.6 kg/m2 30797.6 5 g 118 /min 97 % 97 % 2 L/min 181/103 mm[Hg] 162/84 mm[Hg] 142/84 mm[Hg] Elsa Dominguez [employer] 5 09:10:06 Date Recorded Body height Body mass index (BMI) Body weight Body temperature Oxygen saturation Oxygen saturation in Arterial blood by Pulse oximetry Heart rate Systolic And Diastolic Provider Name and Address Organization Details Last Updated DateTime 5 154.94 cm 13.1 kg/m2 87707.6 7 g 97.8 [degF] 89 % 89 % 118 /min 120/86 mm[Hg] Sanju Turon [employer] 5 08:41:32 Social History Question Answer Notes LastModified by Organizat ion Details LastModified Time Tobacco Smoking Status Current Every Day Smoker Geneva tinsley [employer] 02/13/2023 16:12:16 Do You Have An Advance Directive? No [email or web address] Information n ot available 07/24/2023 Are You Blind Or Do You Have Difficulty Seeing? No Information n ot available 02/13/2023 What Is Your Level Of Caffeine Consumption? Moderate Information not available 02/17/2023 Are You A Caregiver? No Information not available 02/13/2023 In The 14 Days Before Symptom Onset, Have You Had Close Contact With A Laboratory-confirm ed COVID-19 While That Case Was Ill? No [email or web address] Information n ot available 08/21/2023 In The 14 Days Before Symptom Onset, Have You Had Close Contact With A Person Who Is Under Investigation For COVID-19 While That Person Was Ill? No [email or web address] Information not available 08/21/2023 Have You Been To An Area Known To Be High Risk For COVID-19? No [email or web address] Information not available 08/21/2023 Are You Deaf Or Do You Have Serious Difficulty Hearing? No Information not available 02/13/2023 What Type Of Diet Are You Following? REGULAR [email or web address] Information n ot available 08/13/2024 Who Is Your Employer? [employer] [email or web address] Information not available 07/24/2023 Are There Any Guns Present In Your Home? No Information not available 02/13/2023 Which Of Your Hands Is Dominant? Right Information n ot available 02/13/2023 Do You Have A Medical Power Of [employer]? No [email or web address] Information not available 07/24/2023 What Was The Date Of Your Most Recent Tobacco Screening? 02/05/2025 [email or web address] Information not available 02/05/2025 What Is Your Current Pack Years? [email or web address] Information not available 02/17/2023 What Is Your Relationship Status? Information not available 02/13/2023 Do You Use Your Seat Belt Or Car Seat Routinely? Yes Information not available 02/13/2023 Are You Sexually Active? No Information not available 08/13/2024 Do You Have Smoke And Carbon Monoxide Detectors In Your Home? Yes Information not available 02/13/2023 At What Age Did You Start Smoking Tobacco? 15 Information not available 02/17/2023 Are You Passively Exposed To Smoke? Yes Information no t available 02/13/2023 Are There Any Smokers In Your House? Yes Information not available 02/13/2023 How Much Tobacco Do You Smoke? 0.5 PPD Information not available 02/17/2023 Do You Participate In Social Media? Yes [email or web address] Information not available 08/13/2024 Do You Use Sunscreen Routinely? Yes Information not available 02/13/2023 Has Tobacco Cessation Counseling Been Provided? Yes Information not available 02/13/2023 On What Date Was Tobacco Cessation Counseling Provided? 02/05/2025 [email or web address] Information not available 02/05/2025 How Many Years Have You Smoked Tobacco? 45 Information not available 02/17/2023 Have You Recently Traveled Abroad? No Information not available 02/13/2023 Do You Have Difficulty Walking Or Climbing Stairs? No Information not available 02/13/2023 Are You Currently In School? No Information not available 02/13/2023 Do You Have Any Dietary Restrictions? No [email or web address] Information not available 08/13/2024 Sex: Female Functional Status Question Answer Note LastModified by Organizat ion Details LastModified Time Do you use any illicit or recreational drugs? No Information not available 02/13/2023 Do you or have you ever used any other forms of tobacco or nicotine? No Information not available 02/13/2023 Are you currently employed? Yes Information not available 02/13/2023 Do you have transportation difficulties? No Information not available 02/13/2023 Are you able to walk independently without assistance or assistive devices? [email or web address] Information not available 02/13/2023 Do you have difficulty doing errands alone? No Information not available 02/13/2023 Are you able to care for yourself independently? Yes Information not available 02/13/2023 Do you have difficulty dressing, bathing, grooming, or toileting? No Information not available 02/13/2023 Mental Status Question Answer Note LastModified by Organizat ion Details LastModified Time Do you feel stressed (tense, restless, nervous, or anxious, or unable to sleep at night)? [id number] [email or web address] Information not available 08/13/2024 Do you have difficulty concentrating, remembering or making decisions? No Information no t available 02/13/2023 Family History Relationship Description Onset Age of this Age Resolved Age Notes LastModified by Organization Details LastModified Time Father No current problems or disability [email or web address] Not available 08/16 14:49:01 Mother No current problems or disability [email or web address] Not available 08/16 14:49:01 Medical History Condition Response Hospitalizations N Emergency room visit since last appointm ent. N COPD Y Gynecological History Statement/Question Response Date of Last Pap Smear Current Control Method Hysterectom y Most Recent Mammogram Obstetrics History GPAL:G 0 P 0 0 0 0 Immunizations Vaccine Type Date Status Note Provider Nam jeramie and Address Organization Details Recorded Time COVID-19, mRNA, LNP-S, PF, 100 mcg/0.5mL dose or 50 mcg/0.25mL dose 05/24/2021 completed VASHTI tinsley [facility] 08/16/2022 14:48:29 Past Encounters Encounter ID Performer Location Encounter Start Date Encounter Closed Date Diagnosis/Indication Diagnosis SNOMED-CT Code Diagnosis ICD10 Code Diagnosis IMO Codes Diagnosis Note [id number] [place] [address] 08/16/2022 14:23:19 08/16/2022 15:21:34 Cough 31525277 R05.9 Lower resp iratory tract infection 66882323 J22 [id number] Alex Mcfarland [address] 0 09/23/2022 09:17:29 09/23/2022 10:03:43 Fever 806052417 R50.9 Lower resp iratory tract infection 93247172 J22 Cough 18957705 R05.9 [id number] Alex Mcfarland [place] [address] 11/26/2022 09:17:50 11/26/2022 09:51:53 Pain of ear 562692546 H92.09 Impacted c erumen of bilateral ears 8646864709 996499 H61.23 Screening for malignant neoplasm of respiratory tract 725706631 Z12.2 [id number] [place] [address] 02/13/2023 16:00:55 02/13/2023 16:23:29 Abdominal pain 71207073 R10.9 Dysuria 06773483 R30.0 Acute urin nestor tract infection 058385533 N39.0 [id number] Alex Mcfarland [place] [address] 02/17/2023 10:03:08 02/17/2023 10:43:29 Dysuria 28475085 R30.0 Blood in urine 83654132 R31.9 Acute urin nestor tract infection 754857168 N39.0 [id number] Alex Mcfarland [place] [address] 07/15/2023 13:51:49 07/15/2023 14:41:33 Fatigue 96674940 R53.83 Hyperlipidemia 76665440 E78.5 Vitamin D deficiency 347 04528 E55.9 Vitamin B deficiency 479 57184 E53.9 High risk sexual behavior 278238064 Z72.51 Hypoglycemia 799703060 E 16.2 Cough 26741177 R05.9 Lower resp iratory tract infection 15540247 J22 Dyspnea 001532142 R06.00 Unintentio nal weight loss 348852205 R63.4 Body mass index less than 16.5 536768783 Z68.1 Chronic ob structive pulmonary disease 33403394 J44.9 [id number] MANSOOR ACUNA, [facility] [address] 07/24/2023 15:51:21 07/24/2023 16:59:50 Nausea 019604310 R11.0 Abdominal pain 51909635 R10.9 [id number] Alex Mcfarland [place] [address] 0 08/21/2023 10:09:45 08/21/2023 11:55:19 Dyspnea 626476715 R06.00 Fatigue 14907838 R53.83 Tachycardia 7330708 R00. 0 Generalize d anxiety disorder 44767127 F41.1 Pain of mu ltiple joints 60294175 M25.50 Vitamin D deficiency 347 03866 E55.9 Body mass index less than 20 119809092 Z68.1 [id number] Alex Mcfarland [place] [address] 0 10/30/2023 08:37:06 10/30/2023 09:26:16 Fatigue 45953202 R53.83 Chronic ob structive pulmonary disease 61685866 J44.9 Body mass index less than 16.5 189393713 Z68.1 [id number] Ariadna Sweeney, [place] [address] 0 08/13/2024 10:35:05 08/13/2024 12:30:05 Body mass index less than 20 209841408 Z68.1 Pain of mu ltiple joints 70212700 M25.50 Thoracic back pain 03223 8004 M54.6 [id number] [place] [address] 08/23/2024 12:32:25 08/23/2024 14:11:19 Chronic obstructive pulmonary disease 43538365 J44.9 Generalize d anxiety disorder 83869150 F41.1 Long-term drug therapy 093880824 Z79.891 Body mass index less than 16.5 739659938 Z68.1 [id number] [place] [address] 09/13/2024 13:44:24 09/13/2024 14:25:26 Loss of appetite 36269800 R63.0 Generalize d anxiety disorder 10382543 F41.1 Body mass index less than 16.5 772785787 Z68.1 [id number] [place] [address] 10/15/2024 12:32:07 10/15/2024 14:48:14 Fever 817792438 R50.9 Cough 88295108 R05.9 Lower resp iratory tract infection 21270945 J22 Nicotine dependence 5629 4008 F17.200 Body mass index less than 16.5 416676664 Z68.1 [id number] [place] [address] 11/15/2024 12:46:09 11/15/2024 14:19:22 Pain of multiple joints 30488232 M25.50 Loss of appetite 4277197 6 R63.0 Generalize d anxiety disorder 84825209 F41.1 Nodule of lung 420381229 R91.1 Screening mammography 24 610612 Z12.31 Unintentio nal weight loss 480377058 R63.4 coming next week Fatigue 53582656 R53.83 HIV screening 430571636 Z11.4 Hyperlipidemia 72978907 E78.5 Hyperglycemia 83872898 R 73.9 Vitamin D deficiency 347 66093 E55.9 Vitamin B deficiency 479 60348 E53.9 Body mass index less than 16.5 787874823 Z68.1 [id number] [place] [address] 12/13/2024 14:51:56 12/13/2024 15:36:46 Generalized anxiety disorder 40240233 F41.1 Chronic ob structive pulmonary disease 49933192 J44.9 Candidiasis of mouth 797 04467 B37.0 Body mass index less than 16.5 691023449 Z68.1 [id number] Alex Mcfarland [place] [address] 0 01/11/2025 11:51:37 01/11/2025 14:06:01 Adult health examination 304322314 Z00.00 Generalize d anxiety disorder 10566963 F41.1 Body mass index less than 16.5 010011994 Z68.1 [id number] Ariadna Sweeney, [place] [address] 0 01/26/2025 14:16:51 01/26/2025 17:07:11 Cough 56024567 R05.9 Dyspnea 430511206 R06.00 Hypoxia 113467696 R09.02 Acute lowe r respiratory tract infection 598493664 J22 Sore throat 056411884 J0 2.9 Pneumonia 267087580 J18. 9 [id number] [place] [address] 01/31/2025 08:44:34 01/31/2025 09:42:28 Candidiasis of mouth 80177459 B37.0 Coronary arteriosclerosis 30678447 I25.10 Chronic ob structive pulmonary disease 56912434 J44.9 Nausea 594147279 R11.0 Community acquired pneumonia 003481142 J18.9 Body mass index less than 16.5 856270007 Z68.1 [id number] Lucina Middleton, GILBERTO [place] [id number] 0 02/05/2025 08:33:52 02/05/2025 09:51:53 Depressive disorder 11256838 F32.A Stop clonazepam . Patient instructed to f/u with PCP on Friday. Acute exac erbation of chronic obstructive pulmonary disease 164156837 J44.1 Patient sat 89% on room air and referral to ER. Patient refused medical transport and states will go to [facility] ER by POV. Report phoned to [place] at [facility] ER. Underweight 893062765 R6 3.6 Candidiasis of mouth 797 84004 B37.0 Discussed that patient needs to continue nystatin swish. Health Concerns Section Related Observation LastModified by Organization Detai ls LastModified Time None Recorded Concern Status LastModified by Organization Details LastModified Time None Recorded Advance Directives Directive N: Payers Insurance Date Sequence Insurance Name Policy Number Policy Mejia Covered Member ID Mejia Member ID Guarantor Name 08/23/2024 1 [employer] (MEDICARE REPLACEMENT/A DVANTAGE - HMO) Glenda Hutton [id number] Glenda Hutton 11/15/2024 2 [employer] [place] (MEDICAID HMO) Glenda Hutton [id number] Glenda Hutton 11/15/2024 1 [employer] (MEDICARE REPLACEMENT/A DVANTAGE - HMO) Glenda Hutton [id number] Glenda Hutton 12/13/2024 2 [facility] (HMO) Glenda Hutton [id number] Glenda Hutton 01/11/2025 1 [facility] (MEDICARE REPLACEMENT/A DVANTAGE - PPO) Glenda Hutton [id number] Glenda Hutton 12/14/2024 2 [employer] - [facility] (MEDICARE REPLACEMENT/A DVANTAGE - PPO) Glenda Hutton [id number] Glenda Hutton 08/05/2023 1 UNSPECIFIED REMIT PAYOR Glenda Hutton 11/15/2024 SLIDING FEE SCHEDULE - DISCOUNT Glenda Hutton 11/15/2024 1 [facility] (MEDICARE REPLACEMENT/A DVANTAGE - HMO) Glenda Hutton [id number] Glenda Hutton 11/22/2024 2 [place] Glenda Hutton [id number] Glenda Hutton 02/11/2025 [place] [employer] [facility] Glenda [place] [id number] Glenda [place] 12/14/2024 1 [facility] (MEDICARE REPLACEMENT/A DVANTAGE - HMO) Glenda [place] [id number] Glenda [place] 02/11/2025 [place] Glenda Brennen [id number] Glenda [place] 11/15/2024 1 [facility] (MEDICARE REPLACEMENT/A DVANTAGE - HMO) Glenda [place] [id number] Glenda Brennen 08/23/2024 1 [employer] (MEDICARE REPLACEMENT/A DVANTAGE - PPO) Glenda [place] [id number] Glenda [place] 11/16/2024 [place] Glenda [place] [id number] Glenda [place] 08/23/2024 [place] [facility] Glenda Hutton 08/23/2024 2 [facility] [place] (MEDICAID HMO) Glenda [place] [id number] Glenda [place] 12/13/2024 1 [facility] ([place]PL[place]/A DV[place]AGE - HMO) [id number] Glenda Brennen [id number] Glenda [place] 02/11/2025 1 [employer] (MEDICARE REPLACEMENT/A DVANTAGE - PPO) Glenda [place] [id number] Glenda Hutton Notes Date Note Type Note Provider Name and Address Organization Details Recorded Time 12/13/2024 text/html 64 year old female present for chronic disease f/u. States she's been taking all medication. Does note the dulera inh has been causing her nausea and mouth sores even with rinsing her mouth afterward. States symbicort inh did not cause that and she requested this back. Mouth and tongue red and raw, no lesions. will send mouthwash and symbicort inh and refill other medications today.States she fell on 11/24 after tripping over a gas hose. She went to the ER and was told she had right rib fracture. coughing makes pain worse. Educate her on ways to reduce pain with splints and taking deep breaths every hour.Also reviewed LDCT scan with her. She failed to go to mammogram and states she'll call to reschedule. She also failed to get labs after last visit, states she wont be getting them today and is to return. stressed importance of getting these done. pt voiced understanding. Alex Mcfarland APRN [address] [place], [address], [employer], [employer]. 12/13/2024 16:13:40 01/11/2025 text/html 64 year old female presents AWV and for anxiety f/u. Denies acute concerns at this time. She is taking all medication as prescribed without AE. She does notice she gets sleepy with medication so advise her to take 1 at night and half during the day. Also recommended she practice better sleep hygiene. She continues to struggle with home stress and offered pt ways to ease stress. Will refill medicaton today. pt agreesShe has gained 6 lbs since last visit. States appetite pills have helped and she is eating noodle and pb often. will continue medication. Alex Mcfarland APRN [address] [place], [address], [employer], [employer]. 01/11/2025 14:03:38 01/26/2025 text/html Patient presents for cough and dyspnea x 3 days. She has been coughing and short of breath. She has fallen twice and has been getting dizzy. On arrival, her O2 sat is 63%. On 2L NC she improved to 92%. She has been wheezing. She adamantly refuses ER evaluation. I advised ambulance, but she declines multiple times. I explained that this could lead to with her current respiratory rate (26). Ariadna Sweeney, GILBERTO [address] [place], [address], [employer], [employer]. 01/31/2025 15:31:53 01/31/2025 text/html pt here today for refills and hospital f/u. pt states shes doing well on current medication regime. pt was seen on 01/26 where she was found to have an O2 in the 60s. pt went to ER where she was found to have bilateral PNA. she is now on 2L O2NC. states that she does feel better. but is tearful that she is on O2. states that she never thought she would be. however has smoked cigs for many years and refuses now to quit smoking. pt states that she cannot eat and has burning in her mouth and throat. on exam, it appears that pt has oral thrust. i will order nystatin. pt lungs with I/X wheeze. pt is still taking steroid and zpak from hospital. advised pt to do activities in small stime frames though out the day. rest when needed. take 10 big deep breaths every hour while awake. Alex Mcfarland APRN [address] [place], [address], [employer], [employer]. 01/31/2025 09:56:09 02/05/2025 text/html ROS as noted in the HPI Patient presented to Friday clinic complaining of shortness of air, fatigue, and depression. Patient is not wearing prescribed oxygen and states, I need a break from that oxygen. Patient states that she is tired all the time. Patient states that she has been suffering with ongoing depression but states that the Klonopin that she has been taking is not helping and makes her cry all day. Patient also complains is continuing to lose weight. Patient also complaining of still having candidiasis in mouth and states that it is hard for her to eat because her mouth hurts so bad. Patient admittedly states that she has not been taking nystatin swish the way she should secondary to bad taste. Patient states that she has been doing salt water swishes instead. Patient has no additional complaints or concerns for today's visit. Lucina Middleton NP [address] [place], [address], [employer] 02/05/2025 09:38:48 OBGyn Episode No OBEpisode recorded.
== END 2025-07-28 23:59 | disposition home or self-care (01) ==
LOC: RAD 12:44
PROVIDERS: PCP Nurse Practitioner Family; Visit Provider Physician Assistant
DX: S42.212A Unspecified displaced fracture of surgical neck of left humerus, initial encounter for closed fracture (principal); S42.292A Other displaced fracture of upper end of left humerus, initial encounter for closed fracture
CPT/HCPCS: 73030

== ENCOUNTER 2025-09-05 12:36 | Outpatient (CLI) | payer MEDICARE, SELFPAY ==
--- NOTE | 2025-09-05 12:38 | XR_ITS ---
FINAL REPORT CLINICAL HISTORY: left shoulder pain COMPARISON: 07/28/2025 FINDINGS: LEFT SHOULDER Two views were obtained. There is no significant change in the appearance of the left humeral head and neck fracture. IMPRESSION: No significant change. Reviewed, Interpreted and Dictated by Angela Nieto MD Transcribed by Yessy Redman Authenticated and [facility]
--- OUTSIDE RECORDS SUMMARY | 2025-09-05 12:38 | XMS_ITS | Encounter Summary ---
Author Organization Healthcare Address [address] [place] [address] Care Team Providers Care Character Impersonator Name Role Phone Tiffani Mcfarland APRN Primary Care Provider Encounter Details Date Type Department Care Team (Late st Contact Info) Description 08/08/2023 Community [facility] [address] [place] [phone] Tiffani Mcfarland APRN [address] [place] [id number] Leukopenia, unspecified type (Primary Dx) Social History [...] Primary documented in this encounter Care Teams Character Impersonator Relationship Specialty Start Date End Date Tiffani Mcfarland APRN [address] [place] [phone] PCP - General 02/24/23 documented as of this encounter
--- OUTSIDE RECORDS SUMMARY | 2025-09-05 12:38 | XMS_ITS | Clinical Summary ---
Author Organization [facility] Address [address] [place] [address] Care Team Providers Care Energy Economist Name Role Phone Tiffani Mcfarland APRN Primary Care Provider [phone] Allergies Active Allergy Reactions Criticality Noted Date [...] on file Insurance [employer] Care Teams Energy Economist Relationship Specialty Start Date End Date Tiffani Mcfarland APRN [address] [place] [id number] PCP - General 02/24/23
--- OUTSIDE RECORDS SUMMARY | 2025-09-05 12:38 | XMS_ITS | Encounter Summary ---
Author Organization [facility] Address [address] [place] [address] Care Team Providers Care Hand Etcher Helper Name Role Phone Tiffani Mcfarland APRN Primary Care Provider [phone] Encounter Details Date Type Department Care Team (Late st Contact Info) Description 02/24/2023 Ophth Exam [facility] [address] [place] [phone] Luca Fritz MD [address] [place] [address] [phone] Social History Tobacco Use Types Packs/Day Years [...] on filedocumented in this encounter Care Teams Hand Etcher Helper Relationship Specialty Start Date End Date Tiffani Mcfarland APRN [address] [place] [id number] PCP - General 02/24/23 documented as of this encounter
--- OUTSIDE RECORDS SUMMARY | 2025-09-05 12:39 | XMS_ITS | Data Portability ---
Author Organization [employer] [facility] Address [address] [place] [address] Care Team Providers Care Splitting Machine Tender Name Role Phone ALEX MCFARLAND Primary Care [...] medical transport and states will go to [facility] by POV. Report phoned to [place] at [facility]. [email or web address] Not available 02/05/2025 09:12:17 Plan of Treatment Reminders Order Date Submit Date Provider Last Modified By Organization Details Last Modified Time Details Appointments None recorded. Lab rapid flu (A+B) [address], [place], [address], 15:40:00 rapid SARS CoV 2 Ag, QL, IA, upper respiratory specimen 2024 025 [facility], [address] [place] [address], [address], 15:40:09 Referral None recorded. Procedures None recorded. Surgeries None recorded. Imaging XR, chest, 2 view 2024 025 [email or web address] 7 [facility], [address] [place] [address], [address], 5 09:11:37 Medication Orders Boost Plus 0.06 gram-1.5 kcal/mL oral liquid 2024 025 [email or web address] Not available 15:42:39 sertraline 50 mg tablet 2024 025 [facility], [address] [place] [address], [address], 5 12:17:40 nystatin 100,000 unit/mL oral suspension 2024 025 [facility], [address] [place] [address], [address], 12:10:00 ondansetron 4 mg disintegrat ing tablet 2024 025 [facility], [address] [place] [address], [address], 12:09:57 Dulera 100 mcg-5 mcg/actuati on HFA aerosol inhaler 2024 025 [facility], [address] [place] [address], [address], 10:49:52 ProAir HFA 90 mcg/actuati on aerosol inhaler 2024 025 [facility], [address] [place] [address], [address], 5 14:19:36 aspirin 81 mg tablet,yuli hubbardd release 2024 025 [facility], [address] [place] [address], [address], 5 12:09:57 rosuvastati n 20 mg tablet 2024 025 [facility], [address] [place] [address], [address], 5 12:09:59 Sore Throat (phenol) 1.4 % aerosol spray 2024 025 [facility], [address] [place] [address], [address], 5 09:23:50 azithromyci n 250 mg tablet 2024 025 [facility], [address] [place] [address], [address], 5 08:52:33 amoxicillin 875 mg-potassiu m clavulanate 125 mg tablet 2024 025 [facility], [address] [place] [address], [address], 5 09:23:50 prednisone 20 mg tablet 2024 025 [facility], [address] [place] [address], [address], 5 16:39:07 benzonatate 200 mg capsule 2024 025 [facility], [address] [place] [address], [address], 5 16:39:06 ipratropium 0.5 mg-albutero l 3 mg (2.5 mg base)/3 mL nebulizatio n soln 2024 025 [email or web address] Not available 16:37:51 clonazepam 1 mg tablet 2024 025 [facility], [address] [place] [address], [address], 16:37:46 nystatin 100,000 unit/mL oral suspension 2024 025 [facility], [address] [place] [address], [address], 09:23:51 clonazepam 1 mg tablet 2024 025 [facility], [address] [place] [address], [address], 17:02:21 bupropion HCl XL 150 mg 24 hr tablet, extended release 2024 025 [email or web address] 1 [facility], [address] [place] [address], [address], 09:04:11 Symbicort 160 mcg-4.5 mcg/actuati on HFA aerosol inhaler 2024 025 [facility], [address] [place] [address], [address], 15:37:43 Patient TargetsNo targets recorded. Patient Instructions Encounter Date Encounter Id Patient Instructions Last Modified By Organization Details Last Modified Time 01/11/2025 [id number] PROMIS global- 10* Not available 01/11/2025 13:59:27 01/26/2025 [id number] pneumonia: care instructions Not available 01/26/2025 17:29:02 cough: care instructions Not available 01/26/2025 15:22:38 shortness of breath: care instructions Not available 01/26/2025 15:22:38 02/05/2025 [id number] candidiasis: car e instructions [email or web address] Not available 02/05/2025 09:35:02 learning about mood disorders [email or web address] Not available 02/05/2025 09:01:29 Reason for Referral None Reported. Results Created Date Observation Date Name Description Value Unit Range Abnormal Flag Note LastModifiedBy Organization Detail LastModifiedTime 12/25/1912/25/2024 TSH+F REE T4 TSH 2.440 uIU/m L 0.450- 4.500 normal Not Available [facility] ([facility]) [address] [place], [address], 12/26/2024 15:06:59 12/25/1912/25/2024 TSH+F REE T4 T4,free(dire ct) 1.29 NG/dL 0.82-1 .77 normal Not Available [facility] ([facility]) [address] [place], [address], 12/26/2024 15:06:59 12/25/1912/25/2024 CBC WITH DIFFE RENTI AL/PL ATELE T WBC 7.1 x10e3 /uL 3.4-10 .8 normal Not Available [facility] ([facility]) [address] [place], [address], 12/26/2024 15:07:00 12/25/1912/25/2024 CBC WITH DIFFE RENTI AL/PL ATELE T RBC 4.46 x10e6 /uL 3.77-5 .28 normal Not Available [facility] ([facility]) [address] [place], [address], 12/26/2024 15:07:00 12/25/1912/25/2024 CBC WITH DIFFE RENTI AL/PL ATELE T hemoglobin 12.4 g/dL 11.1-1 5.9 normal Not Available [facility] ([facility]) [address] [place], [address], 12/26/2024 15:07:00 12/25/19 25 12/25/2024 CBC WITH DIFFE RENTI AL/PL ATELE T hematocrit 40.1 % 34.0-4 6.6 normal Not Available [facility] ([facility]) [address] [place], [address], 12/26/2024 15:07:00 12/25/19 25 12/25/2024 CBC WITH DIFFE RENTI AL/PL ATELE T MCV 90 fL 79-97 normal Not Available [facility] ([facility]) [address] [place], [address], 12/26/2024 15:07:00 12/25/19 25 12/25/2024 CBC WITH DIFFE RENTI AL/PL ATELE T MCH 27.8 pg 26.6-3 3.0 normal Not Available [facility] ([facility]) [address] [place], [address], 12/26/2024 15:07:00 12/25/19 25 12/25/2024 CBC WITH DIFFE RENTI AL/PL ATELE T MCHC 30.9 g/dL 31.5-3 5.7 below low normal Not Available [facility] ([facility]) [address] [place], [address], 12/26/2024 15:07:00 12/25/19 25 12/25/2024 CBC WITH DIFFE RENTI AL/PL ATELE T RDW 15.6 % 11.7-1 5.4 above high normal Not Available [facility] ([facility]) [address] [place], [address], 12/26/2024 15:07:00 12/25/19 25 12/25/2024 CBC WITH DIFFE RENTI AL/PL ATELE T platelets 410 x10e3 /uL 150-45 0 normal Not Available [facility] ([facility]) [address] [place], [address], 12/26/2024 15:07:00 12/25/19 25 12/25/2024 CBC WITH DIFFE RENTI AL/PL ATELE T neutrophils 61 % not estab. normal Not Available [facility] ([facility]) [address] [facility], [place], [address], 12/26/2024 15:07:00 12/25/19 25 12/25/2024 CBC WITH DIFFE RENTI AL/PL ATELE T lymphs 30 % not estab. normal Not Available [facility] ([facility]) [address] [facility], [place], [address], 12/26/2024 15:07:00 12/25/19 25 12/25/2024 CBC WITH DIFFE RENTI AL/PL ATELE T monocytes 7 % not estab. normal Not Available [facility] ([facility]) [address] [facility], [place], [address], 12/26/2024 15:07:00 12/25/19 25 12/25/2024 CBC WITH DIFFE RENTI AL/PL ATELE T eos 2 % not estab. normal Not Available [facility] ([facility]) [address] [facility], [place], [address], 12/26/2024 15:07:00 12/25/19 25 12/25/2024 CBC WITH DIFFE RENTI AL/PL ATELE T basos 0 % not estab. normal Not Available [facility] ([facility]) [address] [facility], [place], [address], 12/26/2024 15:07:00 12/25/19 25 12/25/2024 CBC WITH DIFFE RENTI AL/PL ATELE T immature cells SCREEN WRITER Not Available [facility]) [address] [place], [address], 12/26/2024 15:07:00 12/25/19 25 12/25/2024 CBC WITH DIFFE RENTI AL/PL ATELE T neutrophils (absolute) 4.3 x10e3 /uL 1.4-7. 0 normal Not Available [facility] ([facility]) [address] [place], [address], 12/26/2024 15:07:00 12/25/19 25 12/25/2024 CBC WITH DIFFE RENTI AL/PL ATELE T lymphs (absolute) 2.1 x10e3 /uL 0.7-3. 1 normal Not Available [facility] ([facility]) [address] [facility], [place], [address], 12/26/2024 15:07:00 12/25/19 25 12/25/2024 CBC WITH DIFFE RENTI AL/PL ATELE T monocytes(ab solute) 0.5 x10e3 /uL 0.1-0. 9 normal Not Available [facility] ([facility]) [address] [place], [address], 12/26/2024 15:07:00 12/25/19 25 12/25/2024 CBC WITH DIFFE RENTI AL/PL ATELE T eos (absolute) 0.1 x10e3 /uL 0.0-0. 4 normal Not Available [facility] ([facility]) [address] [place], [address], 12/26/2024 15:07:00 12/25/19 25 12/25/2024 CBC WITH DIFFE RENTI AL/PL ATELE T baso (absolute) 0.0 x10e3 /uL 0.0-0. 2 normal Not Available [facility] ([facility]) [address] [place], [address], 12/26/2024 15:07:00 12/25/19 25 12/25/2024 CBC WITH DIFFE RENTI AL/PL ATELE T immature granulocytes 0 % not estab. Not Available [facility] ([facility]) [address] [place], [address], 12/26/2024 15:07:00 12/25/19 25 12/25/2024 CBC WITH DIFFE RENTI AL/PL ATELE T immature grans (abs) 0.0 x10e3 /uL 0.0-0. 1 Not Available [facility] ([facility]) [address] [facility], [place], [address], 12/26/2024 15:07:00 12/25/19 25 12/25/2024 CBC WITH DIFFE RENTI AL/PL ATELE T NRBC SCREEN WRITER Not Available [facility] ([facility]) [address] [facility], [place], [address], 12/26/2024 15:07:00 12/25/19 25 12/25/2024 CBC WITH DIFFE RENTI AL/PL ATELE T hematology comments: SCREEN WRITER Not Available [facility]) [address] [facility], [place], [address], 12/26/2024 15:07:00 12/25/19 25 12/25/2024 COMP. METAB OLIC PANEL (14) glucose 91 mg/dL 70-99 normal Not Available [facility] ([facility]) [address] [facility], [place], [address], 12/26/2024 15:07:01 12/25/19 25 12/25/2024 COMP. METAB OLIC PANEL (14) BUN 28 mg/dL 8-27 above high normal Not Available [facility] ([facility]) [address] [facility], [place], [address], 12/26/2024 15:07:01 12/25/19 25 12/25/2024 COMP. METAB OLIC PANEL (14) creatinine 0.67 mg/dL 0.57-1 .00 normal Not Available [facility] ([facility]) [address] [facility], [place], [address], 12/26/2024 15:07:01 12/25/19 25 12/25/2024 COMP. METAB OLIC PANEL (14) eGFR 96 mL/mi n/1.7 3 >59 normal Not Available [facility] ([facility]) [address] [place], [address], 12/26/2024 15:07:01 12/25/19 25 12/25/2024 COMP. METAB OLIC PANEL (14) BUN/creatini ne ratio 42 12-28 above high normal Not Available [facility] ([facility]) [address] [place], [address], 12/26/2024 15:07:01 12/25/19 25 12/25/2024 COMP. METAB OLIC PANEL (14) sodium 139 mmol/ L 134-14 4 normal Not Available [facility] ([facility]) [address] [place], [address], 12/26/2024 15:07:01 12/25/19 25 12/25/2024 COMP. METAB OLIC PANEL (14) potassium 4.5 mmol/ L 3.5-5. 2 normal Not Available [facility] ([facility]) [address] [place], [address], 12/26/2024 15:07:01 12/25/19 25 12/25/2024 COMP. METAB OLIC PANEL (14) chloride 102 mmol/ L 96-106 normal Not Available [facility] ([facility]) [address] [place], [address], 12/26/2024 15:07:01 12/25/19 25 12/25/2024 COMP. METAB OLIC PANEL (14) carbon dioxide, total 22 mmol/ L 20-29 normal Not Available [facility] ([facility]) [address] [place], [address], 12/26/2024 15:07:01 12/25/19 25 12/25/2024 COMP. METAB OLIC PANEL (14) calcium 9.7 mg/dL 8.7-10 .3 normal Not Available [facility] ([facility]) [address] [place], [address], 12/26/2024 15:07:01 12/25/19 25 12/25/2024 COMP. METAB OLIC PANEL (14) protein, total 7.1 g/dL 6.0-8. 5 normal Not Available [facility] ([facility]) [address] [place], [address], 12/26/2024 15:07:01 12/25/19 25 12/25/2024 COMP. METAB OLIC PANEL (14) albumin 4.4 g/dL 3.9-4. 9 normal Not Available [facility] ([facility]) [address] [place], [address], 12/26/2024 15:07:01 12/25/19 25 12/25/2024 COMP. METAB OLIC PANEL (14) globulin, total 2.7 g/dL 1.5-4. 5 Not Available [facility] ([facility]) [address] [place], [address], 12/26/2024 15:07:01 12/25/19 25 12/25/2024 COMP. METAB OLIC PANEL (14) bilirubin, total 0.3 mg/dL 0.0-1. 2 normal Not Available [facility] ([facility]) [address] [place], [address], 12/26/2024 15:07:01 12/25/19 25 12/25/2024 COMP. METAB OLIC PANEL (14) alkaline phosphatase 112 IU/L 44-121 normal Not Available [facility]) [address] [place], [address], 12/26/2024 15:07:01 12/25/19 25 12/25/2024 COMP. METAB OLIC PANEL (14) AST (SGOT) 31 IU/L 0-40 normal Not Available [facility] ([facility]) [address], [place], [address], 12/26/2024 15:07:01 12/25/19 25 12/25/2024 COMP. METAB OLIC PANEL (14) ALT (SGPT) 20 IU/L 0-32 normal Not Available [facility] ([facility]) [address] [place], [address], 12/26/2024 15:07:01 12/25/19 25 12/25/2024 LIPID PANEL cholesterol, total 141 mg/dL 100-19 9 normal Not Available [facility] ([facility]) [address] [place], [address], 12/26/2024 15:07:01 12/25/19 25 12/25/2024 LIPID PANEL triglyceride s 67 mg/dL 0-149 normal Not Available [facility] ([facility]) [address] [place], [address], 12/26/2024 15:07:01 12/25/19 25 12/25/2024 LIPID PANEL HDL cholesterol 66 mg/dL >39 normal Not Available [facility] [address] [place], [address], 12/26/2024 15:07:01 12/25/19 25 12/25/2024 LIPID PANEL VLDL cholesterol ryanne 14 mg/dL 5-40 Not Available [facility]) [address] [place], [address], 12/26/2024 15:07:01 12/25/19 25 12/25/2024 LIPID PANEL LDL chol calc ([facility]) 61 mg/dL 0-99 Not Available [facility] [address] [place], [address], 12/26/2024 15:07:01 12/25/19 25 12/25/2024 LIPID PANEL LDL calc comment: SCREEN WRITER Not Available [facility] ([facility]) [address] [place], [address], 12/26/2024 15:07:01 12/25/19 25 12/25/2024 VITAM IN B12 AND FOLAT E vitamin B12 359 pg/mL 232-12 45 normal Not Available [facility] ([facility]) [address] [place], [address], 12/26/2024 15:07:02 12/25/19 25 12/25/2024 VITAM IN B12 AND FOLAT E folate (folic acid), serum 10.4 NG/mL >3.0 normal A serum folat e beena ntrat ion of less than 3.1 ng/mL is consi dered to repre sent clini ryanne defic iency . Not Available [facility] ([facility]) [address] [facility], [place], [address], 12/26/2024 15:07:02 12/25/19 25 12/25/2024 HEMOG LOBIN A1C hemoglobin A1C 5.5 % 4.8-5. 6 normal Predi abete s: 5.7 - 6.4 Diabe chen: >6.4 Glyce melida contr ol for adult s with diabe chen: <7.0 Not Available [facility] ([facility]) [address] [facility], [place], [address], 12/26/2024 15:07:03 12/25/19 25 12/25/2024 CANCE R [...] t be inter prete d as absol [place] evide nce of the prese nce or absen ce of yulisa leon se. Not Available [facility] ([facility]) [address] [facility], [place], [address], 12/26/2024 15:07:03 12/25/19 25 12/25/2024 VITAM IN [...] um and D. Marietta mariee [place]: [facility] . 2. Jan santiago MF, Willie duran [place], Beata off-F errar i RODRIGUEZ, et al. Evalu ation , treat ment, and preve ntion of vitam in D defic iency : an Endoc rine Socie ty clini ryanne pract ice guide line. JCEM. 2010; 96(7) :1911 -30. Not Available [facility] ([facility]) [address] [facility], [place], [address], 12/26/2024 15:07:04 12/25/19 25 12/25/2024 HIV AB/P2 4 AG WITH REFLE X HIV Ab/P24 Ag screen Non Reacti ve non reacti ve HIV-1 /HIV- 2 antib odies and HIV-1 p24 antig en were NOT detec yvrose. There is no labor atory evide nce of HIV infec tion. HIV Negat gregorio Not Available [facility] ([facility]) [address] [facility], [place], [address], 12/26/2024 15:07:04 12/25/19 25 12/26/2024 CORTI CUAUHTEMOC - AM cortisol - AM 3.8 ug/dL 6.2-19 .4 below low normal Not Available [facility] ([facility]) [address] [place], [address], 12/26/2024 15:07:05 12/28/1912/28/2024 FSH AND LH LH 11.9 mIU/m L 7.7-58 .5 normal Adult Femal e Range Folli cular phase 2.4 - 12.6 Ovula tion phase 14.0 - 95.6 Lutea l phase 1.0 - 11.4 Postm enopa usal 7.7 - 58.5 Not Available [facility] ([facility]) [address] [facility], [place], [address], 01/04/2025 04:07:28 12/28/1912/28/2024 FSH AND LH FSH 36.8 mIU/m L 25.8-1 34.8 Adult Femal e Range Folli cular phase 3.5 - 12.5 Ovula tion phase 4.7 - 21.5 Lutea l phase 1.7 - 7.7 Postm enopa usal 25.8 - 134.8 Not Available [facility] ([facility]) [address] [facility], [place], [address], 01/04/2025 04:07:28 12/28/1901/04/2025 DHEA- SULFA TE, SERUM [...] <128 Not Available [facility] [address] [facility], [place], [address], 01/04/2025 04:07:29 12/28/1912/28/2024 ACTH, PLASM A acth, plasma 7.1 pg/mL 7.2-63 .3 below low normal ACTH refer ence inter daniel for sampl es colle cted betwe en 7 and 10 AM. Not Available [facility] ([facility]) [address] [facility], [place], [address], 01/04/2025 04:07:29 12/28/19 25 12/28/2024 PROLA CTIN prolactin 19.9 NG/mL 3.6-25 .2 normal Not Available [facility] ([facility]) [address] [facility], [place], [address], 01/04/2025 04:07:29 12/28/19 25 12/28/2024 PTH, INTAC T PTH, intact 19 pg/mL 15-65 normal Not Available [facility] ([facility]) [address] [facility], [place], [address], 01/04/2025 04:07:30 01/27/20 25 01/26/2025 rapid SARS CoV 2 Ag, QL, IA, upper respi rator y speci men SARS CoV Ag negati ve Not Available [address], [address], 01/26/2025 15:22:03 01/27/20 25 01/26/2025 rapid flu (A+B) Flu A negati ve Not Available [address], [address], 01/26/2025 15:22:02 01/27/20 25 01/26/2025 rapid flu (A+B) Flu B negati ve Not Available [address], [address], 01/26/2025 15:22:02 11/24/19 25 11/24/2024 LDCT, chest , for lung cance r scree cici No observ ation record ed. [email or web address] [facility] [address], [place], [address], 11/30/2024 10:52:12 01/27/20 XR, chest , 2 view No observ ation record ed. [address], [place], [address], 01/27/2025 09:41:57 01/27/2001/26/2025 CT, chest , w/ contr ast No observ ation record ed. [address], [place], [address], 01/27/2025 12:39:23 02/06/20 25 02/05/2025 XR, chest , 2 view No observ ation record ed. [address], [place], [address], 02/10/2025 14:40:44 02/06/20 25 02/05/2025 rhyth m strip , EKG* No observ ation record ed. [address], [place], [address], 02/10/2025 14:40:33 Result Notes None recorded. Problems Name Problem SNOMED Code Status Onset Date Resolution Date Notes Provider Name and Address Organization Details Recorded Time Pediculo sis capitis 79482605 Completed 201804/26/2021 Problem Code: B85.0; Problem Code Type: ICD-10; Not Available [facility] 2 22:48:15 Chronic obstruct gregorio pulmonar y disease with acute lower respirat ory infectio n 988052141 Active 2018 Problem Code: J44.0; Problem Code Type: ICD-10; Not Available [facility] 22:48:16 Influenz a with non-resp iratory manifest ation 61687877 Completed 201812/01/2018 Problem Code: 487.8; Problem Code Type: ICD-9; Not Available [facility] 22:48:19 Major depressi on, single episode 05932824 Active 2020 Problem Code: F32.9; Problem Code Type: ICD-10; Not Available [facility] 2 22:48:16 Urinary tract infectio us disease 79732787 Completed 202005/22/2021 Problem Code: N39.0; Problem Code Type: ICD-10; Not Available [facility] 2 22:48:16 Dysuria 86052975 Completed 202005/22/2021 Problem Code: R30.0; Problem Code Type: ICD-10; Not Available [facility] 2 22:48:17 Nicotine dependen ce 92790517 Active 2020 Problem Code: F17.200; Problem Code Type: ICD-10; Not Available Replaced by [facility] 22:48:16 Finding of body mass index 697025442 Completed 202005/22/2021 Problem Code: Z68.1; Problem Code Type: ICD-10; Not Available Replaced by [facility] 22:48:18 General examinat ion of patient Completed 202011/26/2022 LASHAWN tinsley, [employer] 3 09:23:54 Chronic fatigue syndrome 28113590 Active 2020 Problem Code: R53.82; Problem Code Type: ICD-10; Not Available Replaced by [facility] 2 22:48:17 Acute respirat ory infectio ns 531455700 Completed 202007/15/2023 Problem Code: J22; Problem Code Type: ICD-10; NILSA tinsley, [employer] 3 14:16:47 Cough 34926596 Completed 202008/13/2024 Problem Code: R05; Problem Code Type: ICD-10; Ariadna Sweeney NP [address] [place], [address] , [employer] 5 15:21:43 Exposure to SARS-CoV -2 Completed 202009/11/2021 Problem Code: Z20.822; Problem Code Type: ICD-10; Ariadna Sweeney NP [address] [place] [address], [address] , [employer] 4 11:39:20 Cough 15347253 Completed 202009/11/2021 Problem Code: R05; Problem Code Type: ICD-10; Ariadna Sweeney, GILBERTO [address] [place] [address], [address] , [employer] 5 15:21:43 Headache 81182071 Completed 202007/15/2023 Problem Code: R51; Problem Code Type: ICD-10; NILSA GALDAMEZLERYOR null, [employer] 3 14:16:47 Exposure to SARS-CoV -2 Completed 202008/13/2024 Problem Code: Z20.822; Problem Code Type: ICD-10; Ariadna Sweeney NP [address] [place] [address], [address] , [employer] 4 11:39:20 Insomnia 591309481 Active 2020 Not Available [facility] 2 22:48:16 Pleuriti c pain 3389299 Completed 202107/15/2023 Problem Code: R07.81; Problem Code Type: ICD-10; NILSA GALDAMEZCHEN null, [employer] 14:16:47 Finding of body mass index 755438842 Active 2021 Problem Code: Z68.1; Problem Code Type: ICD-10; Not Available [facility] 2 22:48:17 Anxiety disorder 498830815 Active 2021 Not Available [facility] 2 22:48:16 Lesion of oral mucosa 99699932813 78054 Completed 202107/15/2023 Problem Code: K13.70; Problem Code Type: ICD-10; NILSA MYCHEN null, [employer] 3 14:16:47 Chest pain 03052212 Completed 202107/15/2023 Problem Code: R07.9; Problem Code Type: ICD-10; NILSA HUITRON alvina, [employer] 3 14:16:47 Hyperlip idemia 55656724 Active 2021 Problem Code: E78.5; Problem Code Type: ICD-10; Not Available [facility] 2 22:48:16 Nausea 803039402 Completed 202208/13/2024 Ariadna Sweeney NP [address] [place] [address], [address] , [employer] 4 11:39:12 Divertic ulitis 487248577 Completed 202208/13/2024 Ariadna Sweeney NP [address] [place] [address], [address] , [employer] 4 11:39:07 Abdomina l pain 42718132 Completed 202208/13/2024 Ariadna Sweeney NP [address] [place] [address], [address] , [place] [employer] 4 11:39:04 Thoracic back pain 625567643 Active 2023 Ariadna Sweeney NP [address] [place] [address], [address] , [place] [employer] 4 11:27:51 Pain of multiple joints 82357899 Active 2023 Ariadna Sweeney NP [address] [place] [address], [address] , [employer] 4 11:39:08 Fever 056119428 Active 2024 Elsa tinsley, [employer] 5 13:25:25 Cough 39243311 Active 2024 Problem Code: R05; Problem Code Type: ICD-10; Ariadna Sweeney NP [address] [place] [address], [address] , [employer] 5 15:21:42 Dyspnea 830808273 Active 2024 Ariadna Sweeney NP [address] [place] [address], [address] , [email or web address] 15:21:47 Hypoxia 053979606 Active 2024 Ariadna Sweeney NP [address] [place] [address], [id number] , [employer] 15:21:56 Acute lower respirat ory tract infectio n 581096215 Active 2024 Ariadna Sweeney NP [address] [place] [address], [address] [place] [address] , [email or web address] 15:55:25 Sore throat 090544904 Active 2024 Ariadna Sweeney NP [address] [place] [address], [address] [place] [address] , [employer] 15:59:36 Pneumoni a 634415502 Active 2024 Ariadna Sweeney NP [address] [place] [address], [address] [place] [address] , [email or web address] 17:28:39 Depressi ve disorder 76602187 Active 2024 Lucina Middleton NP [address] [place] [place] [address], [address] [place] [address] , [email or web address] 09:00:43 Acute exacerba tion of chronic obstruct gregorio pulmonar y disease 730561555 Active 2024 Lucina Middleton NP [address] [place] [address], [address] [place] [address] , [email or web address] 09:10:44 Underwei ght 558019172 Active 2024 Lucina Middleton NP [address] [place] [address], [address] [place] [address] , [email or web address] 09:12:26 Candidia sis of mouth 32932532 Active 2024 Lucina Middleton NP [address] [place], [address] , [facility] [employer] 5 09:34:40 Problem Notes None recorded. Procedures Surgical History Date Name Laterality Status Provider Name and Address Organization Details Recorded Time 9 hysterectomy completed Not Available Replaced by [facility] 022 22:56:14 Imaging Results None recorded. Procedure Notes None recorded. Medical Equipment None Reported. Allergies Allergen ID Allergen Name Allergen Category Reaction Reaction Severity Criticality Documentation Date Start Date Code Code System Note Provider Name and Address Organization Details Recorded Time 87549 codeine sulfate medicatio n Not available Not available Not available 06/18/2022 85438 RxNorm Not Available Replaced by [facility] 22:56:19 Medications Name Sig Start Date Stop [...] day with meals 2024 active Ordering through [facility] for home delivery Not Available Not Available [...] (BMI) Body weight Heart rate Oxygen saturation Systolic And Diastolic Provider Name and Address Organization Details Last Updated DateTime 5 154.94 cm 12.7 kg/m2 46928.6 9 g 118 /min 94 % 105/70 mm[Hg] Elsa Dominguez [employer] 5 15:01:14 Date Recorded Body height Body mass index (BMI) Body weight Heart rate Oxygen saturation Pain severity - 0-10 verbal numeric rating [Score] - Reported Systolic And Diastolic Provider Name and Address Organization Details Last Updated DateTime 5 154.94 cm 13.8 kg/m2 31544.2 4 g 120 /min 92 % 6 127/69 mm[Hg] Elsa Dominguez [employer] 5 13:08:37 Date Recorded Body temperature Provider Name a nd Address Organization Details Last Updated DateTime 01/26/2025 99.8 [degF] Ariadna Sweeney, GILBERTO [address] [place] [address], [id number], [employer] 01/26/2025 16:01:11 Date Recorded Body height Body mass index (BMI) Body weight Heart rate Oxygen saturation Systolic And Diastolic Provider Name and Address Organization Details Last Updated DateTime 5 154.94 cm 15 kg/m2 60415.9 g 120 /min 63 % 117/65 mm[Hg] Carmela Rooney [employer] 5 14:35:51 Date Recorded Body height Body mass index (BMI) Body weight Heart rate Oxygen saturation Inhaled oxygen flow rate Systolic And Diastolic Systolic And Diastolic Systolic And Diastolic Provider Name and Address Organization Details Last Updated DateTime 5 154.94 cm 13.6 kg/m2 16967.6 5 g 118 /min 97 % 2 L/min 181/103 mm[Hg] 162/84 mm[Hg] 142/84 mm[Hg] Elsa Dominguez [employer] 5 09:10:06 Date Recorded Body height Body mass index (BMI) Body weight Body temperature Oxygen saturation Heart rate Systolic And Diastolic Provider Name and Address Organization Details Last Updated DateTime 5 154.94 cm 13.1 kg/m2 97702.6 7 g 97.8 [degF] 89 % 118 /min 120/86 mm[Hg] Sanju Lynnvis [employer] 5 08:41:32 Social History Question Answer Notes LastModified by Organizat ion Details LastModified Time Tobacco Smoking Status Current Every Day Smoker [place] [email or web address] [employer] 02/13/2023 16:12:16 Do You Have An Advance Directive? No [email or web address] Information n ot available 07/24/2023 Are You [...] Type Of Diet Are You Following? REGULAR [email or web address] Information n ot available 08/13/2024 Who Is Your Employer? [employer] [email or web address] Information not available 07/24/2023 Are There Any Guns Present In Your Home? No Information not available 02/13/2023 Which Of Your Hands Is Dominant? Right [email or web address] Information n ot available 02/13/2023 Do You Have A Medical Power Of Commission Auditor? No Information not available 07/24/2023 What Was The Date Of Your Most Recent Tobacco Screening? 02/05/2025 [email or web address] Information not available 02/05/2025 What Is Your Current Pack Years? [email or web address] Information not available 02/17/2023 What Is Your Relationship Status? Information not available 02/13/2023 Do You Use Your Seat Belt Or Car Seat Routinely? Yes Information not available 02/13/2023 Are You Sexually Active? No [email or web address] Information not available 08/13/2024 Do You Have [...] Do You Participate In Social Media? Yes Information not available 08/13/2024 Do You Use Sunscreen Routinely? Yes Information not available 02/13/2023 Has Tobacco Cessation Counseling Been Provided? Yes Information not available 02/13/2023 On What Date Was Tobacco Cessation Counseling Provided? 02/05/2025 [email or web address] Information not available 02/05/2025 How Many Years Have You Smoked Tobacco? 45 Information not available 02/17/2023 Have You Recently Traveled Abroad? No Information not available 02/13/2023 Do You Have Difficulty Walking Or Climbing Stairs? No Information not available 02/13/2023 Are You Currently In School? No Information not available 02/13/2023 Do You Have Any Dietary Restrictions? No Information not available 08/13/2024 Sex: Female Functional [...] anxious, or unable to sleep at night)? [id number] Information not available 08/13/2024 Do you have [...] Vaccine Type Date Status Note Provider Nam e and Address Organization Details Recorded Time COVID-19, mRNA, LNP-S, PF, 100 mcg/0.5mL dose or 50 mcg/0.25mL dose 05/24/2021 completed HERMELINDA [place] - [place] [employer] 08/16/2022 14:48:29 Past Encounters Encounter ID Performer Location Encounter Start Date Encounter Closed Date Diagnosis/Indication Diagnosis SNOMED-CT Code Diagnosis ICD10 Code Diagnosis IMO Codes Diagnosis Note [id number] Alex Mcfarland [address] [address] 08/16/2022 14:23:19 08/16/2022 15:21:34 Cough 23438529 R05.9 Lower resp iratory tract infection 07055894 J22 [id number] [place] [address] 09/23/2022 09:17:29 09/23/2022 10:03:43 Fever 530607907 R50.9 Lower resp iratory tract infection 95846024 J22 Cough 92578952 R05.9 [id number] [place] [address] 11/26/2022 09:17:50 11/26/2022 09:51:53 Pain of ear 570903507 H92.09 Impacted c erumen of bilateral ears 8460392285 822663 H61.23 Screening for malignant neoplasm of respiratory tract 207578408 Z12.2 [id number] [place] [address] 02/13/2023 16:00:55 02/13/2023 16:23:29 Abdominal pain 25726320 R10.9 Dysuria 78930495 R30.0 Acute urin nestor tract infection 858286499 N39.0 [id number] [place] [address] 02/17/2023 10:03:08 02/17/2023 10:43:29 Dysuria 28355146 R30.0 Blood in urine 32701744 R31.9 Acute urin nestor tract infection 047663756 N39.0 [id number] [place] [address] 07/15/2023 13:51:49 07/15/2023 14:41:33 Fatigue 78406044 R53.83 Hyperlipidemia 17626756 E78.5 Vitamin D deficiency 347 11636 E55.9 Vitamin B deficiency 479 44392 E53.9 High risk sexual behavior 367233869 Z72.51 Hypoglycemia 097716717 E 16.2 Cough 20752830 R05.9 Lower resp iratory tract infection 25792824 J22 Dyspnea 508216109 R06.00 Unintentio nal weight loss 118875247 R63.4 Body mass index less than 16.5 484034113 Z68.1 Chronic ob structive pulmonary disease 67638440 J44.9 [id number] MANSOOR ACUNA, [facility] [address] 07/24/2023 15:51:21 07/24/2023 16:59:50 Nausea 738831669 R11.0 Abdominal pain 11554230 R10.9 [id number] Alex Mcfarland [place] [address] 08/21/2023 10:09:45 08/21/2023 11:55:19 Dyspnea 322186962 R06.00 Fatigue 03711825 R53.83 Tachycardia 6896563 R00. 0 Generalize d anxiety disorder 38084956 F41.1 Pain of mu ltiple joints 70408461 M25.50 Vitamin D deficiency 347 45369 E55.9 Body mass index less than 20 181817688 Z68.1 [id number] Alex Mcfarland [place] [address] 0 10/30/2023 08:37:06 10/30/2023 09:26:16 Fatigue 63408612 R53.83 Chronic ob structive pulmonary disease 69279012 J44.9 Body mass index less than 16.5 240146233 Z68.1 [id number] Ariadna Sweeney, [place] [address] 0 08/13/2024 10:35:05 08/13/2024 12:30:05 Body mass index less than 20 663182510 Z68.1 Pain of mu ltiple joints 77201179 M25.50 Thoracic back pain 83061 8004 M54.6 [id number] Alex Mcfarland [place] [address] 0 08/23/2024 12:32:25 08/23/2024 14:11:19 Chronic obstructive pulmonary disease 14439857 J44.9 Generalize d anxiety disorder 05116417 F41.1 Long-term drug therapy 087226770 Z79.891 Body mass index less than 16.5 182691977 Z68.1 [id number] [place] [address] 09/13/2024 13:44:24 09/13/2024 14:25:26 Loss of appetite 86559018 R63.0 Generalize d anxiety disorder 39031300 F41.1 Body mass index less than 16.5 110263434 Z68.1 [id number] [place] [address] 0 10/15/2024 12:32:07 10/15/2024 14:48:14 Fever 303803176 R50.9 Cough 41532705 R05.9 Lower resp iratory tract infection 62291805 J22 Nicotine dependence 5629 4008 F17.200 Body mass index less than 16.5 667938062 Z68.1 [id number] [place] [address] 0 11/15/2024 12:46:09 11/15/2024 14:19:22 Pain of multiple joints 23583864 M25.50 Loss of appetite 5996388 6 R63.0 Generalize d anxiety disorder 81498697 F41.1 Nodule of lung 880857296 R91.1 Screening mammography 24 106375 Z12.31 Unintentio nal weight loss 570130340 R63.4 coming next week Fatigue 20182318 R53.83 HIV screening 560203027 Z11.4 Hyperlipidemia 71059906 E78.5 Hyperglycemia 06881472 R 73.9 Vitamin D deficiency 347 53781 E55.9 Vitamin B deficiency 479 72833 E53.9 Body mass index less than 16.5 054055039 Z68.1 [id number] [place] [address] 0 12/13/2024 14:51:56 12/13/2024 15:36:46 Generalized anxiety disorder 98749173 F41.1 Chronic ob structive pulmonary disease 68702857 J44.9 Candidiasis of mouth 797 73391 B37.0 Body mass index less than 16.5 412621986 Z68.1 [id number] [place] [address] 01/11/2025 11:51:37 01/11/2025 14:06:01 Adult health examination 932604835 Z00.00 Generalize d anxiety disorder 55738048 F41.1 Body mass index less than 16.5 605651360 Z68.1 [id number] Ariadna Sweeney, [place] [address] 0 01/26/2025 14:16:51 01/26/2025 17:07:11 Cough 15893053 R05.9 Dyspnea 694639890 R06.00 Hypoxia 215621545 R09.02 Acute lowe r respiratory tract infection 009368974 J22 Sore throat 812629494 J0 2.9 Pneumonia 319799917 J18. 9 [id number] [place] [address] 0 01/31/2025 08:44:34 01/31/2025 09:42:28 Candidiasis of mouth 06735362 B37.0 Coronary arteriosclerosis 78423174 I25.10 Chronic ob structive pulmonary disease 31623100 J44.9 Nausea 118669196 R11.0 Community acquired pneumonia 167277009 J18.9 Body mass index less than 16.5 357893125 Z68.1 [id number] Lucina Middleton, [place] [address] 0 02/05/2025 08:33:52 02/05/2025 09:51:53 Depressive disorder 77098379 F32.A Stop clonazepam . Patient instructed to f/u with PCP on Friday. Acute exac erbation of chronic obstructive pulmonary disease 357598126 J44.1 Patient sat 89% on room air and referral to ER. Patient refused medical transport and states will go to [facility] ER by POV. Report phoned to [place] at [facility] ER. Underweight 292530976 R6 3.6 Candidiasis of mouth 797 69132 B37.0 Discussed that patient needs to continue [...] (MEDICARE REPLACEMENT/A DVANTAGE - HMO) Glenda Hutton [id number] Glenda Hutton 11/15/2024 2 [employer] [place] (MEDICAID HMO) Glendakhushi Hutton [id number] Glenda Brennen 11/15/2024 1 [employer] (MEDICARE REPLACEMENT/A DVANTAGE - HMO) Glenda Hutton [id number] Glenda Gonzalesles 12/13/2024 2 [facility] (HMO) Glenda Brennen [id number] Glenda [place] 01/11/2025 1 [facility] (MEDICARE REPLACEMENT/A DVANTAGE - PPO) Glenda [place] [id number] Glenda Brennen 12/14/2024 2 [employer] - [facility] (MEDICARE REPLACEMENT/A DVANTAGE - PPO) Glenda [place] [id number] Glenda Brennen 08/05/2023 1 UNSPECIFIED REMIT PAYOR Glenda Hutton 11/15/2024 SLIDING FEE SCHEDULE - DISCOUNT Glenda Brennen 11/15/2024 1 [facility] (MEDICARE REPLACEMENT/A DVANTAGE - HMO) Glenda [place] [id number] Glenda Brennen 11/22/2024 2 [place] Glenda [place] [id number] Glenda [place] 02/11/2025 [place] [facility] [facility] Glenda [place] [id number] Glenda [place] 12/14/2024 1 [facility] (MEDICARE REPLACEMENT/A DVANTAGE - HMO) Glenda [place] [id number] Glenda Hutton 02/11/2025 [place] Glenda Hutton [id number] Glenda Hutton 11/15/2024 1 [facility] (MEDICARE REPLACEMENT/A DVANTAGE - HMO) Glenda Hutton [id number] Glenda Hutton 08/23/2024 1 [employer] (MEDICARE REPLACEMENT/A DVANTAGE - PPO) Glenda Hutton [id number] Glenda Hutton 11/16/2024 [place] [facility] Glenda Hutton [id number] Glenda Hutton 08/23/2024 [place] [employer] [facility] Glenda Hutton 08/23/2024 2 [facility] [place] (MEDICAID HMO) Glenda Hutton [id number] Glenda Hutton 12/13/2024 1 [facility] ([place]PL[place] DVANTAGE - HMO) [id number] Glenda Hutton [id number] Glenda Hutton 02/11/2025 1 [employer] (MEDICARE REPLACEMENT/A DVANTAGE - PPO) Glenda Hutton [id number] Glenda Hutton Notes Date Note Type Note [...] pt voiced understanding. Alex Mcfarland APRN [address] [place], [address], [employer] 12/13/2024 16:13:40 01/11/2025 text/html 64 year old [...] and pb often. will continue medication. Alex Mcfarland, [employer] [address] [place], [address], [employer] 01/11/2025 14:03:38 01/26/2025 text/html Patient presents for [...] respiratory rate (26). Ariadna Sweeney, GILBERTO [address] [place], [address], [employer] 01/31/2025 15:31:53 01/31/2025 text/html pt here today [...] hour while awake. Alex Mcfarland APRN [address] [place], [address], [employer] 01/31/2025 09:56:09 02/05/2025 text/html ROS as noted [...] for today's visit. Lucina Middleton NP [address] [place], [address], [employer] 02/05/2025 09:38:48 OBGyn Episode No OBEpisode recorded.
== END 2025-09-05 23:59 | disposition home or self-care (01) ==
LOC: RAD 12:37
PROVIDERS: PCP Nurse Practitioner Family; Visit Provider Physician Assistant
DX: S42.202D Unspecified fracture of upper end of left humerus, subsequent encounter for fracture with routine healing (principal); S42.212D Unspecified displaced fracture of surgical neck of left humerus, subsequent encounter for fracture with routine healing; X58.XXXD Exposure to other specified factors, subsequent encounter
CPT/HCPCS: 73030